=== PATIENT | male | born 1985 | race Caucasian/White ===

== ENCOUNTER 2017-02-26 12:58 | Emergency (ER) | payer OTHER ==
[2017-02-26 13:18] VITALS: BP 115/72; PULSE 100; RESP 18
--- NOTE | 2017-02-26 13:35 | ED ---
Wound/Laceration HPI - General Chief Complaint: Wound/Laceration Stated Complaint: abscess on foot Time Seen by Provider: 02/26/17 13:19 Source: patient, RN notes reviewed, old records reviewed Mode of arrival: ambulatory Limitations: no limitations - History of Present Illness Initial Comments: Patient is a 31-year-old male with chief complaint of abscess of her foot. Patient reports he was wearing boots and they A Few Days Ago. Patient Reports He Is Wearing His Boots without Socks. He States That over the past Few Days Has Noticed a Blister Develop and Now He Thinks Is an Abscess underneath. He Denies Any Fever or Chills. Denies Any Swelling or Pain in the Toes. He Reports That the Area of Redness and Swelling over the Medial Aspect of His Foot. He Is Able to Bear Weight. Patient States That He's Had Previous Skin Infections which have been managed by Cipro. Patient denies any recent fever, chills, shortness of breath, chest pain, back pain, abdominal pain, nausea vomiting, numbness or tingling, dysuria or hematuria, constipation or diarrhea, headaches or visual changes, or any other current symptoms - Related Data Home Medications Medication Instructions Recorded Confirmed Venlafaxine HCl [Effexor] 75 mg PO BID 02/26/17 02/26/17 Previous Rx's Medication Instructions Recorded Ciprofloxacin HCl [Cipro] 500 mg PO Q12HR #20 tablet 02/26/17 Ibuprofen [Motrin] 600 mg PO Q6HR PRN #20 tab 02/26/17 Allergies Allergy/AdvReac Type Severity Reaction Status Date / Time amoxicillin trihydrate Allergy Unknown Verified 02/26/17 13:18 [From Augmentin] potassium clavulanate Allergy Unknown Verified 02/26/17 13:18 [From Augmentin] Review of Systems ROS Statement: Those systems with pertinent positive or pertinent negative responses have been documented in the HPI. ROS Other: All systems not noted in ROS Statement are negative. Past Medical History Additional Past Medical History / Comment(s): drug abuse, coma History of Any Multi-Drug Resistant Organisms: None Reported Past Surgical History: Orthopedic Surgery Additional Past Surgical History / Comment(s): Arthroscopy left shoulder Past Psychological History: Anxiety, Depression Smoking Status: Current every day smoker Past Alcohol Use History: None Reported Past Drug Use History: None Reported General Exam - General Exam Comments Initial Comments: Pleasant a 31-year-old male. No distress. Limitations: no limitations General appearance: alert, in no apparent distress Head exam: Present: atraumatic, normocephalic, normal inspection Eye exam: Present: normal appearance, PERRL, EOMI. Absent: scleral icterus, conjunctival injection, periorbital swelling ENT exam: Present: normal exam, mucous membranes moist Neck exam: Present: normal inspection. Absent: tenderness, meningismus, lymphadenopathy Respiratory exam: Present: normal lung sounds bilaterally. Absent: respiratory distress, wheezes, rales, rhonchi, stridor Cardiovascular Exam: Present: regular rate, normal rhythm, normal heart sounds. Absent: systolic murmur, diastolic murmur, rubs, gallop, clicks GI/Abdominal exam: Present: soft, normal bowel sounds. Absent: distended, tenderness, guarding, rebound, rigid Extremities exam: Present: normal inspection, full ROM, normal capillary refill. Absent: tenderness, pedal edema, joint swelling, calf tenderness Back exam: Present: normal inspection Neurological exam: Present: alert, oriented X3, CN II-XII intact Psychiatric exam: Present: normal affect, normal mood Skin exam: Present: warm, dry, intact, normal color, erythema (Patient is an area of erythema measuring 5 cm x 4 cm over the medial aspect of the right foot. The area does have a fluctuant spot consistent with an abscess.). Absent : rash Course Vital Signs 02/26/17 02/26/17 13:16 13:49 Pulse Rate 100 100 Respiratory 18 18 Rate Blood Pressure 115/72 115/72 O2 Sat by Pulse 96 96 Oximetry Procedures - Incision & Drainage Consent Obtained: verbal consent Time Out Performed?: Yes Site: foot (right medial foot. ) Size (cm): 1 Anesthetic Used: benzocaine 0.25% I&D Cleaning Method: Betadine Sterile Field Used?: Yes Scalpel Used: #11 I&D Drainage Obtained: Pus, Blood Culture Obtained?: Yes Patient Tolerated Procedure: well, no complications Medical Decision Making - Medical Decision Making Is 31-year-old male chief complaint of a right foot abscess. Patient had this for the past 2 days in regards with a blister over the past day it became increasingly red and inflamed does have a head on it. Patient's abscess was incised and drained. No packing inserted due to shallow wound. Patient did have a culture done. Patient was started on Cipro and given a prescription for Motrin. Patient agrees to return for any worsening signs or symptoms. Patient understands treatment plan will comply. Return parameters were discussed. Disposition Clinical Impression: Foot abscess, right Disposition: HOME SELF-CARE Condition: Good Instructions: Abscess (ED) Additional Instructions: Advised to completely entire antibiotic prescription. Follow-up with primary care provider to have a recheck. Return to emergency Department if the area of redness increases, you have fever or chills, or severe swelling. Don't miss a dose of antibiotic. Complete warm soaks. Prescriptions: Ciprofloxacin HCl [Cipro] 500 mg PO Q12HR #20 tablet Ibuprofen [Motrin] 600 mg PO Q6HR PRN #20 tab PRN Reason: Pain Referrals: Taz Smyth MD [Primary Care Provider] - 1-2 days Time of Disposition: 13:31
== END 2017-02-26 13:52 | disposition home or self-care (01) ==
LOC: EC 12:58
DX: L02.611 Cutaneous abscess of right foot (principal); F41.9 Anxiety disorder, unspecified; F32.9 Major depressive disorder, single episode, unspecified; F17.200 Nicotine dependence, unspecified, uncomplicated; Z79.899 Other long term (current) drug therapy; Z88.0 Allergy status to penicillin
CPT/HCPCS: 10060; 87070; 87077; 87186; 87205; 99283

== ENCOUNTER 2017-03-10 10:56 | Emergency (ER) | payer OTHER ==
[2017-03-10 11:09] VITALS: BP 116/70; PULSE 78; RESP 20; TEMP 98.6
--- NOTE | 2017-03-10 11:19 | ED ---
ENT HPI - General Chief complaint: Dental/Oral Stated complaint: Oral Pain Time Seen by Provider: 03/10/17 11:10 Source: patient Mode of arrival: ambulatory Limitations: no limitations - History of Present Illness Initial comments: This is a 31-year-old male who presents emergency department for right lower molar pain. He states he was grinding his teeth last night and felt like either impacted molar or fractured it. He states he did not have pain yesterday. Denies any fevers or chills. He states it hurts with any eating or chewing. He denies any other complaints. Try call multiple dental resources and was unable to convince her to the emergency department. - Related Data Home Medications Medication Instructions Recorded Confirmed Venlafaxine HCl [Effexor] 75 mg PO BID 02/26/17 02/26/17 Buprenorphine HCl [Subutex] 2 mg SUBLINGUAL DAILY 03/10/17 03/10/17 Previous Rx's Medication Instructions Recorded HYDROcodone/APAP 5-325MG [[place] 1 tab PO Q6HR PRN #10 tab 03/10/17 5-325] Allergies Allergy/AdvReac Type Severity Reaction Status Date / Time amoxicillin trihydrate Allergy Unknown Verified 03/10/17 11:22 [From Augmentin] potassium clavulanate Allergy Unknown Verified 03/10/17 11:22 [From Augmentin] Review of Systems ROS Statement: Those systems with pertinent positive or pertinent negative responses have been documented in the HPI. ROS Other: All systems not noted in ROS Statement are negative. Past Medical History Additional Past Medical History / Comment(s): drug abuse, coma History of Any Multi-Drug Resistant Organisms: MRSA Date of last positivie culture/infection: 02/26/17 MDRO Source:: foot Past Surgical History: Orthopedic Surgery Additional Past Surgical History / Comment(s): Arthroscopy left shoulder Past Psychological History: Anxiety, Depression Smoking Status: Current every day smoker Past Alcohol Use History: None Reported Past Drug Use History: None Reported General Exam - General Exam Comments Initial Comments: Constitutional: Awake alert Appears comfortable Head: Normocephalic atraumatic Eyes: no conjunctival injection No scleral icterus EOMI ENT: Oropharynx is normal, there is no gingivitis or gingival hyperplasia, there is a dental carry to the right lower second premolar. No surrounding erythema or inflammation. Neck: No JVD Supple Heart: Regular rate rhythm normal S1-S2 no murmurs Lungs: Clear to auscultation bilaterally No wheezing No rales Abdomen: Soft nondistended nontender Extremities: Non edematous DP pulses intact Radial pulses intact Neuro: A&Ox3 No focal neurologic deficits Psych: Appropriate mood and affect Limitations: no limitations Course Vital Signs 03/10/17 11:07 Temperature 98.6 F Pulse Rate 78 Respiratory 20 Rate Blood Pressure 116/70 O2 Sat by Pulse 100 Oximetry Medical Decision Making - Medical Decision Making This is a 31-year-old came in for tooth pain. He appears to have his dental [place]. Per provided with 10 [place] until he can get in to see a dentist. Given dental resources as well. Disposition Clinical Impression: Dental caries Disposition: HOME SELF-CARE Condition: Stable Instructions: Toothache (ED), Dental Caries (ED) Prescriptions: HYDROcodone/APAP 5-325MG [[place] 5-325] 1 tab PO Q6HR PRN #10 tab PRN Reason: Pain Referrals: Taz Smyth MD [Primary Care Provider] - 1-2 days
== END 2017-03-10 11:28 | disposition home or self-care (01) ==
LOC: EC 10:56
DX: K02.9 Dental caries, unspecified (principal); F41.9 Anxiety disorder, unspecified; F32.9 Major depressive disorder, single episode, unspecified; F17.200 Nicotine dependence, unspecified, uncomplicated; Z86.14 Personal history of Methicillin resistant Staphylococcus aureus infection; Z79.899 Other long term (current) drug therapy; Z88.0 Allergy status to penicillin
CPT/HCPCS: 99282

== ENCOUNTER 2017-03-28 12:26 | Emergency (ER) | payer OTHER ==
[2017-03-28 12:44] VITALS: BP 104/58; PULSE 65; RESP 15; TEMP 97.8
--- NOTE | 2017-03-28 12:58 | ED ---
Skin/Abscess/FB HPI - General Chief complaint: Skin/Abscess/Foreign Body Stated complaint: Rash Time Seen by Provider: 03/28/17 12:47 Source: patient Mode of arrival: ambulatory Limitations: no limitations - History of Present Illness Initial comments: Patient is a 31-year-old male with medical history significant for MRSA and previous cellulitis from bee stings presenting to the emergency department with complaints of bee stings to his right forearm, right elbow, right hand, and right foot. Patient states that approximately 1 week ago he was helping a friend kill some bees in a basement when he was attacked. Patient mostly complains of pain and redness to his right midfoot where he was stung. Patient denies chills, fevers, nausea, vomiting, shortness of breath, difficulty breathing, abdominal pain, chest pain, numbness or tingling. Patient currently rates pain 3 out of 10 described as aching. MD complaint: insect bite/sting Onset/Timin -: week(s) Tetanus Up to Date: yes Quality: aching Consistency: intermittent Improves with: cold therapy, topical medication, medication Worsens with: movement Context: witnessed insect bite Associated symptoms: denies other symptoms Treatments Prior to Arrival: corticosteroid (1% hydrocortisone [id number]. ), NSAID - Related Data Home Medications Medication Instructions Recorded Confirmed Venlafaxine HCl [Effexor] 150 mg PO QAM 02/26/17 03/28/17 Buprenorphine HCl [Subutex] 2 mg SUBLINGUAL DAILY 03/10/17 03/28/17 Previous Rx's Medication Instructions Recorded Sulfamethox-Tmp 800-160Mg [Bactrim 1 tab PO Q12HR #20 tab 03/28/17 DS 800-160 mg] Allergies Allergy/AdvReac Type Severity Reaction Status Date / Time amoxicillin trihydrate Allergy Unknown Verified 03/28/17 12:44 [From Augmentin] potassium clavulanate Allergy Unknown Verified 03/28/17 12:44 [From Augmentin] Review of Systems ROS Statement: Those systems with pertinent positive or pertinent negative responses have been documented in the HPI. ROS Other: All systems not noted in ROS Statement are negative. Past Medical History Additional Past Medical History / Comment(s): drug abuse, coma, Hepatitis C History of Any Multi-Drug Resistant Organisms: MRSA Date of last positivie culture/infection: 04/27/17 MDRO Source:: foot Past Surgical History: Orthopedic Surgery Additional Past Surgical History / Comment(s): Arthroscopy left shoulder Past Psychological History: Anxiety, Depression Smoking Status: Current every day smoker Past Alcohol Use History: None Reported Past Drug Use History: None Reported General Exam - General Exam Comments Initial Comments: GENERAL: Pt awake and alert, well-appearing, and in no acute distress. HEAD: Atraumatic, normocephalic. EYES: Pupils equal, round, and reactive to light, sclera anicteric, conjunctiva are normal. ENT: Moist mucous membranes. NECK: Supple without lymphadenopathy or JVD. LUNGS: Breath sounds clear to auscultation bilaterally. No wheezes, rales, or rhonchi. HEART: Heart S1, S2, no S3 or S4. Regular rate and rhythm. No murmurs, rubs or gallops. ABDOMEN: Soft, nontender, nondistended, normoactive bowel sounds. No peritoneal signs. EXTREMITIES: 2+ peripheral pulses. No edema. NEUROLOGICAL: Pt oriented x 3. No focal deficits noted. Strength and sensation grossly intact. PSYCH: Normal mood, normal affect. SKIN: Warm, dry. Patient has what appears to be bee sting to his right hand, right forearm, and right elbow with minimal erythema, no drainage or abscess noted. Bee sting to right dorsal midfoot with surrounding erythema, no drainage or abscess noted. Limitations: no limitations Course Vital Signs 03/28/17 12:39 Temperature 97.8 F Pulse Rate 65 Respiratory 15 Rate Blood Pressure 104/58 O2 Sat by Pulse 100 Oximetry Medical Decision Making - Medical Decision Making Right foot cellulitis suspect secondary to bee sting. Patient will be placed on Bactrim. Patient started to return with any new or worsening symptoms. Patient agrees with treatment plan. Disposition Clinical Impression: Bee sting, Cellulitis of right foot Disposition: HOME SELF-CARE Condition: Good Instructions: Cellulitis (ED), Insect Bite or Sting (ED) Additional Instructions: Finish antibiotics as prescribed. May continue Motrin or Tylenol for pain. May apply warm compresses for comfort. Please return to the emergency department if symptoms do not improve or get worse. Prescriptions: Sulfamethox-Tmp 800-160Mg [Bactrim DS 800-160 mg] 1 tab PO Q12HR #20 tab Referrals: None,Stated [Primary Care Provider] - 1-2 days Time of Disposition: 13:01
== END 2017-03-28 13:12 | disposition home or self-care (01) ==
LOC: EC 12:26
DX: T63.441A Toxic effect of venom of bees, accidental (unintentional), initial encounter (principal); F32.9 Major depressive disorder, single episode, unspecified; F41.9 Anxiety disorder, unspecified; F17.200 Nicotine dependence, unspecified, uncomplicated; Z79.891 Long term (current) use of opiate analgesic; Z79.899 Other long term (current) drug therapy; Z88.0 Allergy status to penicillin; Y92.89 Other specified places as the place of occurrence of the external cause; Y93.89 Activity, other specified
CPT/HCPCS: 99282

== ENCOUNTER 2017-04-04 19:55 | Emergency (ER) | payer OTHER ==
[2017-04-04 20:39] VITALS: BP 121/66; PULSE 70; RESP 18; TEMP 98.5
--- NOTE | 2017-04-04 20:42 | ED ---
Skin/Abscess/FB HPI - General Chief complaint: Skin/Abscess/Foreign Body Stated complaint: blisters on foot Time Seen by Provider: 04/04/17 20:19 Source: patient, RN notes reviewed Mode of arrival: ambulatory Limitations: no limitations - History of Present Illness Initial comments: 31-year-old male presents emergency Department chief complaint of abscess to the left foot. Patient states he's had this past few days he is on clindamycin and now it has drained. Patient states is tender and swollen. Patient does admit to history of MRSA. Patient denies any fever or chills. Patient denies any cough cold runny nose. Patient states she was concerned due to his continued symptoms he thought that he should be evaluated. Patient denies any recent fever, chills, shortness of breath, chest pain, back pain, abdominal pain , nausea vomiting, numbness or tingling, dysuria or hematuria, constipation or diarrhea, headaches or visual changes, or any other current symptoms. - Related Data Home Medications Medication Instructions Recorded Confirmed Venlafaxine HCl [Effexor] 150 mg PO QAM 02/26/17 03/28/17 Buprenorphine HCl [Subutex] 2 mg SUBLINGUAL DAILY 03/10/17 03/28/17 Previous Rx's Medication Instructions Recorded Sulfamethox-Tmp 800-160Mg [Bactrim 1 tab PO Q12HR #20 tab 03/28/17 DS 800-160 mg] Ibuprofen [Motrin] 600 mg PO Q6HR PRN #20 tab 04/04/17 Allergies Allergy/AdvReac Type Severity Reaction Status Date / Time amoxicillin trihydrate Allergy Unknown Verified 04/04/17 20:00 [From Augmentin] potassium clavulanate Allergy Unknown Verified 04/04/17 20:00 [From Augmentin] sulfamethoxazole Allergy Rash/Hives Verified 04/04/17 20:00 [From Bactrim] trimethoprim [From Bactrim] Allergy Rash/Hives Verified 04/04/17 20:00 Review of Systems ROS Statement: Those systems with pertinent positive or pertinent negative responses have been documented in the HPI. ROS Other: All systems not noted in ROS Statement are negative. Past Medical History Additional Past Medical History / Comment(s): drug abuse, coma, Hepatitis C History of Any Multi-Drug Resistant Organisms: MRSA Date of last positivie culture/infection: 02/26/17 MDRO Source:: foot Past Surgical History: Orthopedic Surgery Additional Past Surgical History / Comment(s): Arthroscopy left shoulder Past Psychological History: Anxiety, Depression Smoking Status: Current every day smoker Past Alcohol Use History: None Reported Past Drug Use History: None Reported General Exam - General Exam Comments Initial Comments: General: The patient is awake and alert, in no distress, and does not appear acutely ill. Neck: The neck is supple, there is no tenderness. Cardiovascular: There is a regular rate and rhythm. No murmur, rub or gallop is appreciated. Respiratory: Lungs are clear to auscultation, respirations are non-labored, breath sounds are equal. No wheezes, stridor, rales, or rhonchi. Musculoskeletal: Sensation intact with 2+ pulses of the left +. Range of motion of left ankle and left foot. Patient does appear to abscess to the medial aspect of the foot that is fluctuant to touch. No associated induration. 5 out of 5 muscle strength testing throughout. Neurological: CN II-XII intact, There are no obvious motor or sensory deficits. Coordination appears grossly intact. Speech is normal. Skin: Skin is warm and dry and no rashes or lesions are noted. Psychiatric: Normal mood and affect. Limitations: no limitations Course Vital Signs 04/04/17 20:00 Temperature 98.5 F Pulse Rate 70 Respiratory 18 Rate Blood Pressure 121/66 O2 Sat by Pulse 100 Oximetry Procedures - Procedures Initial comment: Procedure: Incision and drainage The skin overlying the abscess was prepped with Betadine, and anesthetized with 1% lidocaine without epinephrine. A #11 scalpel was then used to incise the abscess. Some purulent material was then extracted from the lesion. Wound culture obtained. Gauze dressing placed on top, The patient tolerated the procedure well. Medical Decision Making - Medical Decision Making 31-year-old male presents emergency Department chief complaint of left foot abscess. At this time patient underwent I&D. We discussed her follow-up and return parameters. We discussed all patient's questions. He stated he understood the plan. He will be discharged. Disposition Clinical Impression: Foot abscess, left Disposition: HOME SELF-CARE Condition: Stable Instructions: Abscess (ED), Abscess Incision and Drainage (ED) Additional Instructions: Please use medication as discussed. Please follow up with family doctor if symptoms have not improved over the next two days. Please return to the emergency room if your symptoms increase or worsen or for any other concerns. Prescriptions: Ibuprofen [Motrin] 600 mg PO Q6HR PRN #20 tab PRN Reason: Pain Referrals: Sidra Diaz MD [STAFF PHYSICIAN] - 1-2 days Time of Disposition: 20:41
== END 2017-04-04 21:10 | disposition home or self-care (01) ==
LOC: EC 19:55
DX: L02.612 Cutaneous abscess of left foot (principal); F32.9 Major depressive disorder, single episode, unspecified; F17.200 Nicotine dependence, unspecified, uncomplicated; Z88.0 Allergy status to penicillin; Z88.2 Allergy status to sulfonamides; Z86.14 Personal history of Methicillin resistant Staphylococcus aureus infection; Z79.899 Other long term (current) drug therapy
CPT/HCPCS: 10060; 99282

== ENCOUNTER 2017-05-01 20:30 | Emergency (ER) | payer OTHER ==
[2017-05-01 20:39] VITALS: RESP 20; TEMP 100.2
--- NOTE | 2017-05-01 21:10 | ED ---
General Adult HPI - General Chief complaint: Psychiatric Symptoms Stated complaint: MENTAL HEALTH Time Seen by Provider: 05/01/17 20:42 Source: patient, RN notes reviewed, old records reviewed Mode of arrival: ambulatory Limitations: no limitations - History of Present Illness Initial comments: This is a 31-year-old male here for evaluation. The patient said presents for evaluation regarding stress, increased life stressors, thoughts of harming himself or others. Patient denies drugs or alcohol. - Related Data Home Medications Medication Instructions Recorded Confirmed Venlafaxine HCl [Effexor] 150 mg PO QAM 02/26/17 05/01/17 Buprenorphine HCl [Subutex] 2 mg SUBLINGUAL DAILY 03/10/17 05/01/17 Ibuprofen [Motrin] 800 mg PO Q8H PRN 05/01/17 05/01/17 Allergies Allergy/AdvReac Type Severity Reaction Status Date / Time amoxicillin trihydrate Allergy Unknown Verified 05/01/17 21:25 [From Augmentin] potassium clavulanate Allergy Unknown Verified 05/01/17 21:25 [From Augmentin] sulfamethoxazole Allergy Rash/Hives Verified 05/01/17 21:25 [From Bactrim] trimethoprim [From Bactrim] Allergy Rash/Hives Verified 05/01/17 21:25 Review of Systems ROS Statement: Those systems with pertinent positive or pertinent negative responses have been documented in the HPI. ROS Other: All systems not noted in ROS Statement are negative. Past Medical History Additional Past Medical History / Comment(s): Hepatitis C, opiate dependance History of Any Multi-Drug Resistant Organisms: MRSA Date of last positivie culture/infection: 02/26/17 MDRO Source:: foot Past Surgical History: Orthopedic Surgery Additional Past Surgical History / Comment(s): Arthroscopy left shoulder Past Psychological History: Anxiety, Depression Smoking Status: Current every day smoker Past Alcohol Use History: None Reported Past Drug Use History: None Reported General Exam Limitations: no limitations General appearance: alert, in no apparent distress, anxious Head exam: Present: atraumatic, normocephalic, normal inspection Eye exam: Present: normal appearance, PERRL, EOMI. Absent: scleral icterus, conjunctival injection, periorbital swelling ENT exam: Present: normal exam, mucous membranes moist Neck exam: Present: normal inspection. Absent: tenderness, meningismus, lymphadenopathy Respiratory exam: Present: normal lung sounds bilaterally. Absent: respiratory distress, wheezes, rales, rhonchi, stridor Cardiovascular Exam: Present: regular rate, normal rhythm, normal heart sounds. Absent: systolic murmur, diastolic murmur, rubs, gallop, clicks GI/Abdominal exam: Present: soft, normal bowel sounds. Absent: distended, tenderness, guarding, rebound, rigid Extremities exam: Present: normal inspection, full ROM, normal capillary refill. Absent: tenderness, pedal edema, joint swelling, calf tenderness Back exam: Present: normal inspection Neurological exam: Present: alert, oriented X3, CN II-XII intact Psychiatric exam: Present: normal affect, normal mood Skin exam: Present: warm, dry, intact, normal color. Absent: rash Course Vital Signs 05/01/17 20:34 Temperature 100.2 F H Pulse Rate 111 H Respiratory 20 Rate Blood Pressure 104/52 O2 Sat by Pulse 98 Oximetry - Reevaluation(s) Reevaluation #1: 05/02/17 02:26 Medical clear for psychiatric evaluation Medical Decision Making - Medical Decision Making 31 male who is seen intervertebral psychiatry, patient is deemed not need psychiatric. Patient's psychiatric treatment at this time, patient will be discharged home Disposition Clinical Impression: Depression Disposition: HOME SELF-CARE Condition: Good Instructions: Depression (ED) Referrals: Taz Smyth MD [Primary Care Provider] - 1-2 days
[2017-05-02 02:38] VITALS: BP 102/56; PULSE 84
== END 2017-05-02 02:38 | disposition home or self-care (01) ==
LOC: EC 20:30
DX: F32.9 Major depressive disorder, single episode, unspecified (principal); F41.9 Anxiety disorder, unspecified; F17.200 Nicotine dependence, unspecified, uncomplicated; Z79.899 Other long term (current) drug therapy; Z88.0 Allergy status to penicillin; Z88.2 Allergy status to sulfonamides
CPT/HCPCS: 82075; 99284

== ENCOUNTER 2017-05-14 22:24 | Emergency (ER) | payer OTHER ==
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
[2017-05-14 23:55] VITALS: RESP 16
[2017-05-15] MEDS ORDERED: METHADONE 10 MG TAB PO STA (00:22)
[2017-05-15 00:53] VITALS: BP 127/79; PULSE 86; TEMP 97.1
== END 2017-05-15 01:10 | disposition home or self-care (01) ==
LOC: EC 22:24
DX: F43.22 Adjustment disorder with anxiety (principal); F11.23 Opioid dependence with withdrawal; F32.9 Major depressive disorder, single episode, unspecified; F17.200 Nicotine dependence, unspecified, uncomplicated; Z88.2 Allergy status to sulfonamides; Z88.0 Allergy status to penicillin; Z79.899 Other long term (current) drug therapy
CPT/HCPCS: 99285; 82075; 80306; S0109

== ENCOUNTER 2017-05-17 12:21 | Emergency (ER) | payer OTHER ==
[2017-05-17 12:29] VITALS: BP 137/64; PULSE 99; RESP 14; TEMP 100.9
[2017-05-17] MEDS ORDERED: diphenhydrAMINE 50 MG CAP PO STA (12:37)
[2017-05-17] MEDS ORDERED: predniSONE 50 MG TAB PO STA (12:37)
[2017-05-17] MEDS ORDERED: FAMOTIDINE 20 MG TAB PO STA (12:38)
--- NOTE | 2017-05-17 12:43 | ED ---
General Adult HPI - General Chief complaint: Skin/Abscess/Foreign Body Stated complaint: insect bite bottom lt foot Time Seen by Provider: 05/17/17 12:32 Source: patient, RN notes reviewed Mode of arrival: ambulatory Limitations: no limitations - History of Present Illness Initial comments: 21-year-old male who presents emergency room today with a chief complaint of increased redness swelling locally to the left foot. He does admit that he slept in a shed last night. He states he woke up this morning noticed some irritation to the left foot. He states he noticed that there was an earring week second issue is well. Since sure if this is what caused this. He is unsure if there is a bite. He states feels better when he rubs it. He does admit to a history of MRSA. He denies any other complaints or associated symptoms. States he had no symptoms yesterday. Patient denies any recent fever , chills, shortness of breath, chest pain, back pain, abdominal pain, nausea or vomiting, numbness or tingling, dysuria or hematuria, constipation or diarrhea, headaches or visual changes, or any other complaints. - Related Data Home Medications Medication Instructions Recorded Confirmed Buprenorphine HCl [Subutex] 2 mg SL 05/17/17 Previous Rx's Medication Instructions Recorded Clindamycin HCl [Cleocin] 300 mg PO Q6HR 10 Days 05/17/17 Famotidine [Pepcid] 20 mg PO BID #20 tablet 05/17/17 diphenhydrAMINE [Benadryl] 1 - 2 tab PO Q6HR PRN #30 capsule 05/17/17 predniSONE 50 mg PO DAILY #5 tab 05/17/17 Allergies Allergy/AdvReac Type Severity Reaction Status Date / Time amoxicillin trihydrate Allergy Unknown Verified 05/17/17 12:29 [From Augmentin] potassium clavulanate Allergy Unknown Verified 05/17/17 12:29 [From Augmentin] sulfamethoxazole Allergy Rash/Hives Verified 05/17/17 12:29 [From Bactrim] trimethoprim [From Bactrim] Allergy Rash/Hives Verified 05/17/17 12:29 Review of Systems ROS Statement: Those systems with pertinent positive or pertinent negative responses have been documented in the HPI. ROS Other: All systems not noted in ROS Statement are negative. Past Medical History Additional Past Medical History / Comment(s): Hepatitis C, opiate dependance History of Any Multi-Drug Resistant Organisms: MRSA Date of last positivie culture/infection: 02/26/17 MDRO Source:: foot Past Surgical History: Orthopedic Surgery Additional Past Surgical History / Comment(s): Arthroscopy left shoulder Past Psychological History: Anxiety, Depression Smoking Status: Current every day smoker Past Alcohol Use History: None Reported Past Drug Use History: Marijuana General Exam - General Exam Comments Initial Comments: General: The patient is awake and alert, in no distress, and does not appear acutely ill. Eye: Pupils are equal, round and reactive to light, extra-ocular movements are intact. No nystagmus. There is normal conjunctiva bilaterally. No signs of icterus. Ears, nose, mouth and throat: There are moist mucous membranes and no oral lesions. Neck: The neck is supple, there is no tenderness or JVD. Cardiovascular: There is a regular rate and rhythm. No murmur, rub or gallop is appreciated. Respiratory: Lungs are clear to auscultation, respirations are non-labored, breath sounds are equal. No wheezes, stridor, rales, or rhonchi. Musculoskeletal: Normal ROM, no tenderness. Strength 5/5. Sensation intact. Pulses equal bilaterally 2+. Neurological: A&O x 3. CN II-XII intact, There are no obvious motor or sensory deficits. Coordination appears grossly intact. Speech is normal. Skin: 7 mild redness erythema to the arch of the left foot. There is ALLERGIC streaking. Psychiatric: Cooperative, appropriate mood & affect, normal judgment. Limitations: no limitations Course Vital Signs 05/17/17 12:26 Temperature 100.9 F H Pulse Rate 99 Respiratory 14 Rate Blood Pressure 137/64 O2 Sat by Pulse 97 Oximetry Medical Decision Making - Medical Decision Making Patient states no symptoms yesterday noticed that this morning when he woke up. Does admit that there is no earache in his shoe. Did discuss with the patient most likely an ALLERGIC type reaction as it's been less than 24 hours with this redness. No lethargic streaking. There is no fluctuance or sign of abscess at this time. He does have a history of MRSA. Patient does have multiple other abrasions and scabs to the lower legs. Sign of infection to these areas. Patient does have low-grade temperature here 100.9F. Patient will be given a antibiotic to go home with. He will be given doses of steroids , Benadryl, Pepcid here in emergency room. He is advised that there is improvement with this that he does not need to take the antibiotic if there is no improvement or if symptoms begin to increase that he should begin antibiotics. He is advised to return here to emergency room if symptoms increase or worsen. He states understanding and is in agreement. Disposition Clinical Impression: Insect bite Disposition: HOME SELF-CARE Condition: Good Instructions: Insect Bite or Sting (ED) Additional Instructions: Please use medication as discussed. Please follow-up with family doctor in the next 2 days of symptoms have not improved. Please return to emergency room if the symptoms increase or worsen or for any other concerns. Prescriptions: Clindamycin HCl [Cleocin] 300 mg PO Q6HR 10 Days diphenhydrAMINE [Benadryl] 1 - 2 tab PO Q6HR PRN #30 capsule PRN Reason: Allergic Reaction Famotidine [Pepcid] 20 mg PO BID #20 tablet predniSONE 50 mg PO DAILY #5 tab Referrals: Taz Smyth MD [Primary Care Provider] - 1-2 days Time of Disposition: 12:41
== END 2017-05-17 12:50 | disposition home or self-care (01) ==
LOC: EC 12:21
DX: S90.862A Insect bite (nonvenomous), left foot, initial encounter (principal); M79.89 Other specified soft tissue disorders; F17.200 Nicotine dependence, unspecified, uncomplicated; Z86.14 Personal history of Methicillin resistant Staphylococcus aureus infection; Z79.899 Other long term (current) drug therapy; Z88.0 Allergy status to penicillin; Z88.1 Allergy status to other antibiotic agents; Z88.2 Allergy status to sulfonamides; W57.XXXA Bitten or stung by nonvenomous insect and other nonvenomous arthropods, initial encounter
CPT/HCPCS: 99282; J7512

== ENCOUNTER 2017-07-29 14:40 | Emergency (ER) | payer OTHER ==
[2017-07-29 15:00] VITALS: TEMP 100
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
[2017-07-29 16:25] VITALS: BP 105/60; PULSE 110; RESP 16
== END 2017-07-29 16:15 | disposition home or self-care (01) ==
LOC: EC 14:40
DX: S72.112A Displaced fracture of greater trochanter of left femur, initial encounter for closed fracture (principal); F41.9 Anxiety disorder, unspecified; F32.9 Major depressive disorder, single episode, unspecified; F17.200 Nicotine dependence, unspecified, uncomplicated; Z86.14 Personal history of Methicillin resistant Staphylococcus aureus infection; Z79.899 Other long term (current) drug therapy; Z88.0 Allergy status to penicillin; Z88.1 Allergy status to other antibiotic agents; Z88.2 Allergy status to sulfonamides; Z88.8 Allergy status to other drugs, medicaments and biological substances; V03.90XA Pedestrian on foot injured in collision with car, pick-up truck or van, unspecified whether traffic or nontraffic accident, initial encounter
CPT/HCPCS: 73502; 99283

== ENCOUNTER 2017-08-15 21:32 | Emergency (ER) | payer OTHER ==
--- NOTE | 2017-08-15 22:23 | ED ---
General Adult HPI - General Chief complaint: Psychiatric Symptoms Stated complaint: Anxiety Time Seen by Provider: 08/15/17 21:45 Source: patient, RN notes reviewed Mode of arrival: ambulatory Limitations: no limitations - History of Present Illness Initial comments: This is a 32-year-old male with past medical history significant for severe depression. Patient states she's already on Effexor. Patient states today he got the news that his grandfather home he was extremely close with. Patient states ever since then he started crying and been very depressed. Patient states he is not currently suicidal but earlier he's not sure if he would've considered it. Patient denies any homicidal ideations. Patient denies any drug use or alcohol today. Patient states he just was looking for somebody talk to today and is not sure even wants to be admitted at this time. Patient states the depression seems to come in waves every since he found out his grandfather . Patient denies any physical complaints today. Patient denies any fever chills or cough patient denies abdominal pain patient denies nausea vomiting diarrhea. Patient denies any chest pain shortness of breath or difficulty breathing. - Related Data Home Medications Medication Instructions Recorded Confirmed Ibuprofen [Motrin] 800 mg PO Q8H PRN 07/29/17 07/29/17 Venlafaxine HCl [Effexor XR] 225 mg PO DAILY 07/29/17 07/29/17 busPIRone HCL 15 mg PO TID 07/29/17 07/29/17 Previous Rx's Medication Instructions Recorded Hydrocodone/Acetaminophen [[place] 1 tab PO Q6HR PRN #15 tab 07/29/17 5-325] Ibuprofen [Motrin] 600 mg PO Q6HR PRN #20 tab 07/29/17 Allergies Allergy/AdvReac Type Severity Reaction Status Date / Time amoxicillin trihydrate Allergy Unknown Verified 08/15/17 21:43 [From Augmentin] potassium clavulanate Allergy Unknown Verified 08/15/17 21:43 [From Augmentin] sulfamethoxazole Allergy Rash/Hives Verified 08/15/17 21:43 [From Bactrim] trimethoprim [From Bactrim] Allergy Rash/Hives Verified 08/15/17 21:43 Review of Systems ROS Statement: Those systems with pertinent positive or pertinent negative responses have been documented in the HPI. ROS Other: All systems not noted in ROS Statement are negative. Past Medical History Additional Past Medical History / Comment(s): Hepatitis C, opiate dependance History of Any Multi-Drug Resistant Organisms: MRSA Date of last positivie culture/infection: 02/26/17 MDRO Source:: foot Past Surgical History: Orthopedic Surgery Additional Past Surgical History / Comment(s): Arthroscopy left shoulder Past Psychological History: Anxiety, Depression Smoking Status: Current every day smoker Past Alcohol Use History: Occasional Past Drug Use History: Marijuana General Exam - General Exam Comments Initial Comments: GENERAL: Patient is well-developed and well-nourished. Patient is nontoxic and well- hydrated and is in no acute distress. ENT: Neck is soft and supple. No significant lymphadenopathy is noted. Oropharynx is clear. Moist mucous membranes. Neck has full range of motion without eliciting any pain. EYES: The sclera were anicteric and conjunctiva were pink and moist. Extraocular movements were intact and pupils were equal round and reactive to light. Eyelids were unremarkable. PULMONARY: Unlabored respirations. Good breath sounds bilaterally. No audible rales rhonchi or wheezing was noted. CARDIOVASCULAR: There is a regular rate and rhythm without any murmurs gallops or rubs. SKIN: Skin is clear with no lesions or rashes and otherwise unremarkable. NEUROLOGIC: Patient is alert and oriented x3. Cranial nerves II through XII are grossly intact. Motor and sensory are also intact. Normal speech, volume and content. Symmetrical smile. MUSCULOSKELETAL: Normal extremities with adequate strength and full range of motion. LYMPHATICS: No significant lymphadenopathy is noted PSYCHIATRIC: Patient is very depressed his grandfather today he currently states he is not suicidal Limitations: no limitations Course Vital Signs 08/15/17 08/16/17 21:41 00:56 Temperature 98.2 F 98.5 F Pulse Rate 81 71 Respiratory 20 18 Rate Blood Pressure 128/66 140/80 O2 Sat by Pulse 100 98 Oximetry Medical Decision Making - Medical Decision Making EPS evaluated the patient spoke with the psychiatrist and determined that the patient was safe to go home - Lab Data Lab Results 08/15/17 Range/Units 22:36 Urine Opiates Screen Detected H (NotDetected) Ur Oxycodone Screen Not Detected (NotDetected) Urine Methadone Screen Not Detected (NotDetected) Ur Propoxyphene Screen Not Detected (NotDetected) Ur Barbiturates Screen Not Detected (NotDetected) U Tricyclic Antidepress Not Detected (NotDetected) Ur Phencyclidine Scrn Not Detected (NotDetected) Ur Amphetamines Screen Detected H (NotDetected) U Methamphetamines Scrn Detected H (NotDetected) U Benzodiazepines Scrn Detected H (NotDetected) Urine Cocaine Screen Not Detected (NotDetected) U Marijuana (THC) Screen Detected H (NotDetected) Disposition Clinical Impression: Polypharmacy, Methamphetamine abuse, Benzodiazepine abuse, Marijuana abuse, Narcotic abuse, Grieving Disposition: HOME SELF-CARE Instructions: Polysubstance Abuse (ED) Referrals: None,Stated [Primary Care Provider] - 1-2 days Time of Disposition: 00:42
[2017-08-16 01:02] VITALS: BP 140/80; PULSE 71; RESP 18; TEMP 98.5
== END 2017-08-16 00:56 | disposition home or self-care (01) ==
LOC: EC 21:32
DX: F12.10 Cannabis abuse, uncomplicated (principal); F11.10 Opioid abuse, uncomplicated; F15.10 Other stimulant abuse, uncomplicated; F13.10 Sedative, hypnotic or anxiolytic abuse, uncomplicated; F32.9 Major depressive disorder, single episode, unspecified; F41.9 Anxiety disorder, unspecified; F17.200 Nicotine dependence, unspecified, uncomplicated; Z86.14 Personal history of Methicillin resistant Staphylococcus aureus infection; Z63.4 Disappearance and death of family member; Z79.899 Other long term (current) drug therapy; Z88.2 Allergy status to sulfonamides; Z88.0 Allergy status to penicillin
CPT/HCPCS: 80306; 82075; 99284

== ENCOUNTER 2017-12-25 02:37 | Emergency (ER) | payer OTHER ==
[2017-12-25 02:44] VITALS: BP 134/88; PULSE 100; RESP 18; TEMP 97.6
[2017-12-25] MEDS ORDERED: ACETAMINOPHEN TAB 500 MG TAB PO STA (02:55)
[2017-12-25] MEDS ORDERED: BUPIVACAINE (PF) 0.5% 30 ML VIAL SQ STA (02:56)
[2017-12-25] MEDS ORDERED: IBUPROFEN 800 MG TAB PO STA (02:56)
--- NOTE | 2017-12-25 03:14 | ED ---
ENT HPI - General Chief complaint: Dental/Oral Stated complaint: dental pain Time Seen by Provider: 12/25/17 02:45 Source: patient Mode of arrival: ambulatory Limitations: no limitations - History of Present Illness Initial comments: 32-year-old male patient presented to the emergency department today for complaints of left upper dental pain. Patient states he has a broken tooth to the area that occasionally causes him problems. He states that the pain started earlier today. He states he has not had anything for pain. He denies any fevers or chills with this. Denies any nausea or vomiting. States that he just got his dental insurance reinstated he'll be calling the dentist tomorrow. Patient denies any recent rash, shortness breath, chest pain, abdominal pain, diarrhea, constipation, back pain, numbness, tingling, dizziness, weakness, hematuria, dysuria, urinary urgency, urinary frequency, headache, visual changes , or any other complaints. - Related Data Home Medications Medication Instructions Recorded Confirmed Ibuprofen [Motrin] 800 mg PO Q8H PRN 07/29/17 09/05/17 Venlafaxine HCl [Effexor XR] 225 mg PO DAILY 07/29/17 09/05/17 busPIRone HCL 15 mg PO TID 07/29/17 09/05/17 Previous Rx's Medication Instructions Recorded Acetaminophen-Codeine 300-30mg 1 tab PO Q6H PRN #15 tablet 09/05/17 [Tylenol #3] Ibuprofen [Motrin] 600 mg PO Q6HR PRN #20 tab 09/05/17 Clindamycin HCl 300 mg PO TID #30 cap 12/25/17 Ibuprofen 800 mg PO TID PRN #30 tablet 12/25/17 Allergies Allergy/AdvReac Type Severity Reaction Status Date / Time amoxicillin trihydrate Allergy Unknown Verified 12/25/17 02:44 [From Augmentin] potassium clavulanate Allergy Unknown Verified 12/25/17 02:44 [From Augmentin] sulfamethoxazole Allergy Rash/Hives Verified 12/25/17 02:44 [From Bactrim] trimethoprim [From Bactrim] Allergy Rash/Hives Verified 12/25/17 02:44 Review of Systems ROS Statement: Those systems with pertinent positive or pertinent negative responses have been documented in the HPI. ROS Other: All systems not noted in ROS Statement are negative. Past Medical History Additional Past Medical History / Comment(s): Hepatitis C, opiate dependance History of Any Multi-Drug Resistant Organisms: MRSA Date of last positivie culture/infection: 02/26/17 MDRO Source:: foot Past Surgical History: Orthopedic Surgery Additional Past Surgical History / Comment(s): Arthroscopy left shoulder Past Psychological History: Anxiety, Depression Smoking Status: Current every day smoker Past Alcohol Use History: Occasional Past Drug Use History: Marijuana General Exam Limitations: no limitations General appearance: alert, in no apparent distress, other Eye exam: Present: normal appearance, PERRL, EOMI. Absent: scleral icterus, conjunctival injection, periorbital swelling ENT exam: Present: normal exam, normal oropharynx, mucous membranes moist, TM's normal bilaterally, other (Multiple broken teeth and dental caries. Broken tooth #14. No gingival erythema or swelling. No evidence of abscess.) Respiratory exam: Present: normal lung sounds bilaterally. Absent: respiratory distress, wheezes, rales, rhonchi, stridor Cardiovascular Exam: Present: regular rate, normal rhythm, normal heart sounds. Absent: systolic murmur, diastolic murmur, rubs, gallop, clicks Neurological exam: Present: alert, oriented X3, CN II-XII intact Psychiatric exam: Present: normal affect, normal mood Skin exam: Present: warm, dry, intact, normal color. Absent: rash Course Vital Signs 12/25/17 02:39 Temperature 97.6 F Pulse Rate 100 Respiratory 18 Rate Blood Pressure 134/88 O2 Sat by Pulse 100 Oximetry Procedures - Nerve Block Consent Obtained: verbal consent Time Out Performed: Yes Local Anesthetic Used: Marcaine 0.5% Amount of anesthesia used: 3 Side: left Intraoral Nerve Block: superior alveolar (Posterior) Procedure Successful: Yes Complications: none Patient Tolerated Procedure: well Medical Decision Making - Medical Decision Making 32-year-old male patient percents to the emergency department today for evaluation of left upper dental pain. Physical examination did reveal broken tooth #14. Patient has multiple broken teeth and extensive dental decay. There is no surrounding erythema or evidence of abscess. I did perform a posterior superior alveolar dental block. Patient tolerated the procedure without difficulty. He did report complete resolution of his pain after the injection. I did give him prescription for clindamycin for possibility of early infection. I will give him a prescription for ibuprofen. He is instructed to apply warm compresses to the outside of the face. He is instructed to follow up with dentistry as soon as possible. Return parameters discussed in detail. He is instructed to return here mainly for any new, worsening, or concerning symptoms. He verbalizes understanding and agrees with this plan. Disposition Clinical Impression: Pain, dental Disposition: HOME SELF-CARE Condition: Good Instructions: Dental Caries (ED), Toothache (ED) Additional Instructions: Apply warm compresses to the outside of the face. Take medications as directed. Follow-up with dentistry as soon as possible. Return here immediately for any new, worsening, or concerning symptoms. Prescriptions: Clindamycin HCl 300 mg PO TID #30 cap Ibuprofen 800 mg PO TID PRN #30 tablet PRN Reason: Pain Referrals: Alexandru Louie MD [Primary Care Provider] - 1-2 days Time of Disposition: 03:35
== END 2017-12-25 03:53 | disposition home or self-care (01) ==
LOC: EC 02:37
DX: K02.9 Dental caries, unspecified (principal); F32.9 Major depressive disorder, single episode, unspecified; F41.9 Anxiety disorder, unspecified; F17.200 Nicotine dependence, unspecified, uncomplicated; Z79.899 Other long term (current) drug therapy; Z88.0 Allergy status to penicillin; Z88.1 Allergy status to other antibiotic agents; Z86.14 Personal history of Methicillin resistant Staphylococcus aureus infection
CPT/HCPCS: 64400; 99282

== ENCOUNTER 2018-01-23 21:07 | Emergency (ER) | payer OTHER ==
--- NOTE | 2018-01-23 22:04 | ED ---
General Adult HPI - General Chief complaint: Recheck/Abnormal Lab/Rx Stated complaint: Medical clearance Time Seen by Provider: 01/23/18 21:31 Source: patient Mode of arrival: ambulatory Limitations: no limitations - History of Present Illness Initial comments: 32-year-old male presents to the emergency department for a chief complaint of vomiting and diarrhea. Patient states this started about a week ago and lasted for 3 days. He has been asymptomatic for the past 2-3 days. Patient states he tried to go to work but they told him he needed to be cleared by a provider first. Patient states he vomited multiple times a day and had diarrhea. He also had crampy abdominal pain at that time. Patient denies any sharp abdominal pain. He was able to keep down solids and liquids during this time. Today he is feeling "100% better". Patient denies nausea or diarrhea. Patient does not feel fatigue or dehydrated. Patient states his stools are solid and have not been loose for days. Patient denies any fever or chills. Patient denies blood in the vomit or diarrhea. Patient denies sore throat, ear pain, chest pain, shortness of breath. He does not remember what he ate a week ago when we discussed that it could have been a gastroenteritis. - Related Data Home Medications Medication Instructions Recorded Confirmed Ibuprofen [Motrin] 800 mg PO Q8H PRN 07/29/17 09/05/17 Venlafaxine HCl [Effexor XR] 225 mg PO DAILY 07/29/17 09/05/17 busPIRone HCL 15 mg PO TID 07/29/17 09/05/17 Previous Rx's Medication Instructions Recorded Acetaminophen-Codeine 300-30mg 1 tab PO Q6H PRN #15 tablet 09/05/17 [Tylenol #3] Ibuprofen [Motrin] 600 mg PO Q6HR PRN #20 tab 09/05/17 Clindamycin HCl 300 mg PO TID #30 cap 12/25/17 Ibuprofen 800 mg PO TID PRN #30 tablet 12/25/17 Allergies Allergy/AdvReac Type Severity Reaction Status Date / Time amoxicillin trihydrate Allergy Unknown Verified 01/23/18 21:14 [From Augmentin] potassium clavulanate Allergy Unknown Verified 01/23/18 21:14 [From Augmentin] sulfamethoxazole Allergy Rash/Hives Verified 01/23/18 21:14 [From Bactrim] trimethoprim [From Bactrim] Allergy Rash/Hives Verified 01/23/18 21:14 Review of Systems ROS Statement: Those systems with pertinent positive or pertinent negative responses have been documented in the HPI. ROS Other: All systems not noted in ROS Statement are negative. Past Medical History Additional Past Medical History / Comment(s): Hepatitis C, opiate dependance History of Any Multi-Drug Resistant Organisms: MRSA Date of last positivie culture/infection: 02/26/17 MDRO Source:: foot Past Surgical History: Orthopedic Surgery Additional Past Surgical History / Comment(s): Arthroscopy left shoulder Past Psychological History: Anxiety, Depression Smoking Status: Current every day smoker Past Alcohol Use History: Occasional Past Drug Use History: Marijuana General Exam Limitations: no limitations Head exam: Present: atraumatic, normocephalic, normal inspection Eye exam: Present: normal appearance, PERRL, EOMI. Absent: scleral icterus, conjunctival injection, periorbital swelling ENT exam: Present: normal exam, mucous membranes moist, TM's normal bilaterally Neck exam: Present: normal inspection. Absent: tenderness, meningismus, lymphadenopathy Respiratory exam: Present: normal lung sounds bilaterally. Absent: respiratory distress, wheezes, rales, rhonchi, stridor Cardiovascular Exam: Present: regular rate, normal rhythm, normal heart sounds. Absent: systolic murmur, diastolic murmur, rubs, gallop, clicks GI/Abdominal exam: Present: soft, normal bowel sounds (Normal bowel sounds in all 4 quadrants.). Absent: distended, tenderness (No tenderness to deep palpation in all 4 quadrants.), guarding, rebound, rigid Course Vital Signs 01/23/18 21:12 Temperature 98.2 F Pulse Rate 88 Respiratory 20 Rate Blood Pressure 139/71 O2 Sat by Pulse 99 Oximetry Medical Decision Making - Medical Decision Making 32-year-old male presents to the emergency department for a chief complaint of vomiting and diarrhea. Patient states the symptoms started week ago and lasted a few days. Patient has been asymptomatic for the past 2-3 days. Patient states his work wanted a note clearing him for his job. 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 Patient no longer has loose stools so a stool sample cannot be sent. Patient is no longer vomiting. Patient is feeling "100% better." He has no fevers and is not nauseous or experiencing abdominal pain. Patient will be given a note to return to work. He will return to the emergency Department if he notices the diarrhea or vomiting begins again and he will return if he notices abdominal pain. Patient will follow up with primary care provider in one to 2 days. Disposition Clinical Impression: Viral gastroenteritis Disposition: HOME SELF-CARE Condition: Good Instructions: Gastroenteritis (ED) Additional Instructions: Please return to the emergency department if you have any additional vomiting or diarrhea. Otherwise follow-up with primary care provider in one to 2 days. He can return to work tomorrow as long as you are feeling well. Referrals: None,Stated [Primary Care Provider] - 1-2 days Time of Disposition: 21:56
[2018-01-23 22:22] VITALS: BP 130/80; PULSE 84; RESP 18; TEMP 98.7
== END 2018-01-23 22:21 | disposition home or self-care (01) ==
LOC: EC 21:07
DX: A08.4 Viral intestinal infection, unspecified (principal); F17.200 Nicotine dependence, unspecified, uncomplicated; F32.9 Major depressive disorder, single episode, unspecified; F41.9 Anxiety disorder, unspecified; Z86.14 Personal history of Methicillin resistant Staphylococcus aureus infection; Z86.19 Personal history of other infectious and parasitic diseases; Z88.0 Allergy status to penicillin; Z88.1 Allergy status to other antibiotic agents; Z88.2 Allergy status to sulfonamides; Z79.899 Other long term (current) drug therapy
CPT/HCPCS: 99283

== ENCOUNTER 2018-01-25 20:44 | Inpatient (IN) | payer MEDICAID, OTHER ==
[2018-01-25] MEDS ORDERED: DICYCLOMINE 10 MG/ML 2 ML AMP IM STA (23:06)
[2018-01-25] MEDS ORDERED: cloNIDine HCL/PF 100 MCG in SODIUM CHLORIDE 0.9% 100 ML IVPB ONE (23:06)
[2018-01-25] MEDS ORDERED: SODIUM CHLORIDE 0.9% 1,000 ML IV ONE (23:07)
[2018-01-25] MEDS ORDERED: ONDANSETRON 4 MG/2 ML VIAL IVP STA (23:07)
--- NOTE | 2018-01-25 23:13 | ED ---
General Adult HPI - General Chief complaint: Recheck/Abnormal Lab/Rx Stated complaint: Withdrawl Time Seen by Provider: 01/25/18 22:50 Source: patient Mode of arrival: ambulatory Limitations: no limitations - History of Present Illness Initial comments: 32-year-old male presenting with Suboxone withdrawal. Patient states that he has been on Suboxone for the last 3 days. He recently had an insurance lapse was unable to see his prescribing physician. He states he thought he would be able to get her to withdraw himself but today he has had intense abdominal cramping, copious diarrhea, and multiple episodes of emesis. He states he called the help line who stated that it was too late to do intake. Patient states he currently has insurance now. He just wants up into "stop his discomfort and his feeling of being on edge." - Related Data Home Medications Medication Instructions Recorded Confirmed Venlafaxine HCl [Effexor XR] 225 mg PO DAILY 07/29/17 01/25/18 busPIRone HCL 15 mg PO TID 07/29/17 01/25/18 Buprenorphine HCl/Naloxone HCl 1 film SL BID 01/25/18 01/25/18 [Suboxone 8 mg-2 mg Sl Film] Allergies Allergy/AdvReac Type Severity Reaction Status Date / Time amoxicillin trihydrate Allergy Unknown Verified 01/26/18 03:52 [From Augmentin] potassium clavulanate Allergy Unknown Verified 01/26/18 03:52 [From Augmentin] sulfamethoxazole Allergy Rash/Hives Verified 01/26/18 03:52 [From Bactrim] trimethoprim [From Bactrim] Allergy Rash/Hives Verified 01/26/18 03:52 Review of Systems ROS Statement: Those systems with pertinent positive or pertinent negative responses have been documented in the HPI. Review of Systems Constitutional: Denies fever, chills Eyes: Denies change in vision, Denies pain Ears, nose, mouth, throat: Denies headaches, Denies sore throat Cardiovascular: Denies chest pain. Denies palpitations Respiratory: Denies shortness of breath, Denies cough Gastrointestinal: Positive abdominal pain, N/V/D. Genitourinary: Denies hematuria, Denies infections Musculoskeletal: Denies pain, Denies swelling Integumentary: Denies rash Neurological: Denies headache, focal weakness, focal numbness Psychiatric: Admits to anxiety. Denies depression Hematologic/Lymphatic: Denies easy bleeding or bruising ROS Other: All systems not noted in ROS Statement are negative. Past Medical History Additional Past Medical History / Comment(s): Hepatitis C, opiate dependance History of Any Multi-Drug Resistant Organisms: MRSA Date of last positivie culture/infection: 02/26/17 MDRO Source:: foot Past Surgical History: Orthopedic Surgery Additional Past Surgical History / Comment(s): Arthroscopy left shoulder Past Psychological History: Anxiety, Depression Smoking Status: Current every day smoker Past Alcohol Use History: Occasional Past Drug Use History: Marijuana, Opiates, Prescription Drug Abuse - Past Family History Mother Additional Family Medical History / Comment(s): Manic Depressive, Addiction Hx Father Family Medical History: Seizure Disorder Additional Family Medical History / Comment(s): Anxiety Daughter(s) Family Medical History: No Reported History General Exam - General Exam Comments Initial Comments: General: Awake, alert, No acute Distress. Disheveled appearance. HENT: Normocephalic. Atraumatic Eyes: PERRL. EOMI. No scleral icterus. No injected conjunctiva Neck: Full ROM Chest/Lungs: Clear to auscultation bilaterally. No wheezing, rhonchi, or rales Cardiac: Regular rate, rhythm. No murmurs or rubs Abdomen/GI: Generalized tenderness. Hyperactive bowel sounds. No rebound, guarding, or rigidity. Musculoskeletal: Full ROM Skin: Warm, dry, intact Neurologic: A/Ox3, no weakness, no sensory deficit, no abdnormal gait, no coordination deficit Psych: Anxious appearing. Limitations: no limitations Course Vital Signs 01/25/18 01/26/18 01/26/18 21:22 00:00 02:00 Temperature 97.9 F 97.6 F Pulse Rate 89 83 66 Respiratory 18 18 17 Rate Blood Pressure 127/81 123/79 111/58 O2 Sat by Pulse 98 100 99 Oximetry Medical Decision Making - Medical Decision Making 32-year-old male presenting with Suboxone withdrawal symptoms. Initial exam the patient is awake, alert, no acute distress. VSS. 1228 Unable to obtain IV access. Patient now stating that if he gets discharged he will "jump into traffic and kill myself." He states this is what happened every time he goes through any kind of which all. He states he is homeless, is cold, has nowhere to sleep, and feels so sick that he just wants to end it. He states that before when he is going through withdrawal he tried to drink a bottle of bleach in a suicide attempt. The remainder of the patient's care has been signed out to the night physician while awaiting EPS evaluation. Disposition Clinical Impression: Suicidal ideations, Withdrawal from opioids Disposition: TRANSFER TO PSYCH HOSP/UNIT Condition: Good
[2018-01-25] MEDS ORDERED: ONDANSETRON ODT 4 MG TAB PO STA (23:58)
[2018-01-26] MEDS ORDERED: cloNIDine HCL 0.1 MG TAB PO STA (00:13)
[2018-01-26] MEDS ORDERED: METHADONE 10 MG TAB PO STA (00:25)
[2018-01-26] MEDS ORDERED: MAGNESIUM HYDROXIDE 2,400 MG/10 ML CUP PO PRN (03:06)
[2018-01-26] MEDS ORDERED: MAG HYDROX/AL HYDROX/SIMETH 30 ML CUP PO PRN (03:06)
[2018-01-26] MEDS ORDERED: ZIPRASIDONE 20 MG VIAL IM PRN (03:06)
[2018-01-26 03:39] VITALS: BMI 17.6
--- NOTE | 2018-01-26 07:22 | P.MDCNMH ---
History of Present Illness H&P Date: 01/26/18 Chief Complaint: Medical management 32-year-old male with history of hepatitis C and opiate dependence. He presented to the hospital due to) symptoms of opiate withdrawal. He reports that he has been on Suboxone for couple days however his insurance lapsed and he ran out. His main complaint in the emergency department was abdominal cramps , vomiting and diarrhea however upon my interview this morning he denied any of these symptoms. He reported that he had some suicidal ideation and decided to come to the hospital. Seems like the patient is giving variable reports regarding why he is in the hospital and he didn't show interest to be engaged in a detailed conversation. He claims to be feeling fine at this time and denied any physical or medical concerns Review of Systems Constitutional: Patient denies fever, denies chills, denies night sweating, denies significant weight changes Eyes: Patient denies visual changes, denies eye pain ENT: Patient denies ear pain, denies rhinorrhea, denies sore throat Cardiovascular: Patient denies chest pain, denies exertional dyspnea, denies peripheral leg edema, denies orthopnea, denies paroxysmal nocturnal dyspnea Respiratory:Patient denies cough, denies wheezing, denies shortness of breath Gastrointestinal: Patient denies diarrhea, denies constipation, denies nausea , denies vomiting, denies abdominal pain Genitourinary: Patient denies dysuria, denies hematuria, denies changes in urinary habits, denies genital lesions Musculoskeletal: Patient denies muscle pain, denies joint pain Psychiatric: Patient denies changes in mood or memory, reported suicidal ideation, denies anxiety Endocrine: Patient denies heat intolerance, denies cold intolerance, denies excessive thirst, denies polyuria Neurological: Patient denies focal neurologic deficits, denies weakness, denies numbness, denies tingling Hem/Lymphatic: Patient denies bleeding tendency, denies bruising, denies swollen lymph glands Allergic/Immun: Patient denies recent allergic reactions Skin: Patient denies rashes, denies pruritis, denies ulcers Past Medical History Additional Past Medical History / Comment(s): Hepatitis C, opiate dependance History of Any Multi-Drug Resistant Organisms: MRSA Date of last positivie culture/infection: 02/26/17 MDRO Source:: foot- bilaterial Past Surgical History: Orthopedic Surgery Additional Past Surgical History / Comment(s): Arthroscopy left shoulder Past Anesthesia/Blood Transfusion Reactions: No Reported Reaction Past Psychological History: Anxiety, Depression Smoking Status: Current every day smoker Past Alcohol Use History: Occasional Additional Past Alcohol Use History / Comment(s): Patient states that he drinks alcohol occasional last use was 2.5 months ago. Past Drug Use History: Cocaine, Heroin, IV Drug Use, Marijuana, Opiates, Prescription Drug Abuse Additional Drug Use History / Comment(s): Cocaine: last use December 31 2017, smoked one time. Herion: last use January 23, 2018 snorted. MJ: last used 2 weeks ago. Opiates: Suboxone 2mg- buys off the street since Sep 2017, injects IV to make it last longer, Pt states that he has used every opiate to keep him from going through withdrawals. Pt states that he also would use a low dose of methadone at times. Xanax Bar 2.25mg: Pt states he buys off the street and takes before bed, last use 01/24/18 - Past Family History Mother Additional Family Medical History / Comment(s): Manic Depressive, Addiction Hx Father Family Medical History: Seizure Disorder Additional Family Medical History / Comment(s): Anxiety Daughter(s) Family Medical History: No Reported History Medications and Allergies Home Medications and Allergies Comment(s): Patient claimed that he is not supposed to take any medications at home. And he reported that he is not currently taking any medications Home Medications Medication Instructions Recorded Confirmed Type Venlafaxine HCl [Effexor XR] 225 mg PO DAILY 07/29/17 01/25/18 History busPIRone HCL 15 mg PO TID 07/29/17 01/25/18 History Buprenorphine HCl/Naloxone HCl 1 film SL BID 01/25/18 01/25/18 History [Suboxone 8 mg-2 mg Sl Film] Allergies Allergy/AdvReac Type Severity Reaction Status Date / Time amoxicillin trihydrate Allergy Unknown Verified 01/26/18 03:52 [From Augmentin] potassium clavulanate Allergy Unknown Verified 01/26/18 03:52 [From Augmentin] sulfamethoxazole Allergy Rash/Hives Verified 01/26/18 03:52 [From Bactrim] trimethoprim [From Bactrim] Allergy Rash/Hives Verified 01/26/18 03:52 Physical Exam Vitals: Vital Signs Temp Pulse Pulse Resp BP BP Pulse Ox 01/26/18 03:07 97.9 F 61 14 103/64 96 01/26/18 02:00 97.6 F 66 17 111/58 99 01/26/18 00:00 83 18 123/79 100 01/25/18 21:22 97.9 F 89 18 127/81 98 Intake and Output 01/25/18 01/26/18 01/26/18 22:59 06:59 14:59 Other: Weight 61.235 kg 58.8 kg Constitutional: No acute distress, conversant, pleasant Eyes: Anicteric sclerae, moist conjunctiva, no lid-lag Pupils equal round reactive to light ENMT: NC/AT Oropharynx clear, no erythema, exudates Neck: Supple, FROM, no masses, or JVD No carotid bruits No thyromegaly Lungs: Clear to auscultation Clear to percussion Normal respiratory effort, no accessory muscle use Cardiovascular: Heart regular in rate and rhythm, No murmurs, gallops, or rubs No peripheral edema Abdominal: Soft Nontender, no guarding, rebound or rigidity Abdomen moving with respiration Normoactive bowel sounds No hepatomegaly, No splenomegaly No palpable mass No abdominal wall hernia noted Skin: Normal temperature, tone, texture, turgor No induration No subcutaneous nodules No rash, lesions No ulcers Extremities: No digital cyanosis No clubbing Pedal pulses intact and symmetrical Radial pulses intact and symmetrical No calf tenderness Psychiatric: Alert and oriented to person, place and time Flat affect, avoiding eye contact fair judgment Neuro Muscles Strength 5/5 in all 4 extremities Sensation to light touch grossly present throughout No focal sensory deficits Lymphatics: no palpable cervical or supraclavicular , or inguinal lymph nodes Cranial Nerve Examination - Cranial Nerves Cranial Nerve II- Optic: Intact Cranial Nerve III- Oculomotor: Intact Cranial Nerve IV- Trochlear: Intact Cranial Nerve V- Trigeminal: Intact Cranial Nerve - Abducens: Intact Cranial Nerve VII- Facial: Intact Cranial Nerve VIII- Auditory: Intact Cranial Nerve IX- Glossopharyngeal: Intact Cranial Nerve X- Vagus: Intact Cranial Nerve XI- Accessory: Intact Cranial Nerve XII- Hypoglossal: Intact Assessment and Plan Plan: 32-year-old male with history of polysubstance abuse presented to the hospital per ED notes due to symptoms of opiate withdrawal however patient currently denies any physical complaints at this time. #Opiates withdrawal Patient counseled regarding polysubstance abuse Symptomatic control of diarrhea abdominal cramps and vomiting if any Encourage by mouth intake and advance as tolerated #Patient claims suicidal ideation Suicidal precautions Management per psych #History of hepatitis C Check AFP #DVT prophylaxis Patient is ambulatory low risk Thank you for allowing us to participate in the care of this patient. We will follow peripherally. Do not hesitate to contact us with questions. Someone can be reached from the [facility] hospitalist group at all hours of the day at [phone].
[2018-01-26] MEDS: NICOTINE 14MG/24HR PATCH TRANSDERM SCH (08:45)
[2018-01-26] MEDS: LORazepam 1 MG TAB PO PRN ×3 (08:45→23:21)
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
[2018-01-26] MEDS: busPIRone HCl 10 MG TAB PO SCH ×2 (09:28→20:52)
[2018-01-26] MEDS: VENLAFAXINE HCL ER 75 MG CAP PO SCH (09:28)
[2018-01-26 10:48] LABS: Appearance,Urine Clear (Clear); Bilirubin,Urine Negative (Negative); Blood,Urine Negative (Negative); Color,Urine Yellow; Glucose,Urine (UA) Negative (Negative); Ketones,Urine Negative (Negative); Leukocyte Esterase,Urine Negative (Negative); Nitrite,Urine Negative (Negative); PH, Urine 6.5 (5.0-8.0); Protein,Urine Trace (Negative); Specific Gravity,Urine 1.028 (1.001-1.035)
[2018-01-26 12:18] LABS: Amphetamine Screen,Urine Not Detected (NotDetected); Barbiturate Screen,Urine Not Detected (NotDetected); Benzodiazepines Screen,Urine Not Detected (NotDetected); Cocaine Screen,Urine Not Detected (NotDetected); Methadone Screen, Urine Detected (NotDetected); Opiate Screen,Urine Not Detected (NotDetected); Oxycodone Screen, Urine Not Detected (NotDetected); Phencyclidine Screen,Urine Not Detected (NotDetected); Tricyclic Antidepressant,Urine Not Detected (NotDetected); Urn Cannabinoid Scrn Detected (NotDetected)
[2018-01-26 17:59] LABS: Hemoglobin A1C 5.7 % (4.0-6.0)
[2018-01-27] MEDS: busPIRone HCl 10 MG TAB PO SCH ×2 (08:25→20:04)
[2018-01-27] MEDS: VENLAFAXINE HCL ER 75 MG CAP PO SCH (08:25)
[2018-01-27] MEDS: NICOTINE 14MG/24HR PATCH TRANSDERM SCH (08:25)
[2018-01-27] MEDS: LORazepam 1 MG TAB PO PRN ×2 (08:26→15:25)
[2018-01-27] MEDS ORDERED: VENLAFAXINE HCL ER 150 MG CAP PO SCH (09:00)
--- NOTE | 2018-01-27 09:04 | P.PN ---
Progress Note - Text Interval history: The patient is found in his room he follows me to an interview room. He states that he slept poorly last night and was awake "thrashing". Staff reported he slept 6 hours. We discussed that sleep disturbance could be due to a number of variables including withdrawal from opiates. He is encouraged to attend groups and stay out of bed during the day today to promote better sleep in the evening. He stated that he had had some success with melatonin in the past for sleep. We discussed the psychotropic medications his questions were answered. We are awaiting a placement date for [facility]. He reported attending 1 group yesterday. Mental status exam: The patient is a thin male appearing his stated age. He is casually dressed he has a disheveled appearance hygiene is fair. Eye contact is appropriate speech is fluent nonpressured. He has some spontaneous speech but mainly responds to questions asked. He reports his mood is "mellow" "I'm existing". He feels safe in the hospital is endorsing no acute suicidal ideation he is reporting no homicidal ideation. He is reporting no auditory or visual hallucinations or any specific delusions. There is no observed evidence of psychosis. He demonstrates no tangential thinking loose associations or flight of ideas. He does not appear hypomanic or manic. He remains oriented to person place and date. He demonstrates no abnormal involuntary movements he demonstrates no verbal or physical aggressiveness. Plan: The patient's will continue on his current psychotropic medications we will titrate the Effexor XR to 150 mg daily. Continue BuSpar as written I will start melatonin 5 mg at bedtime. Again he is instructed to attend groups and not go back to bed during the day. Vital signs reviewed. We will continue to monitor him for safety. We will await the placement date for [facility]. He will likely need custodial placement in the interim.
[2018-01-27 10:10] LABS: ALT 16 U/L (21-72); AST 27 U/L (17-59); Albumin 4.3 g/dL (3.5-5.0); Alkaline Phosphatase 94 U/L (38-126); Anion Gap 12 mmol/L; Blood Urea Nitrogen 20 mg/dL (9-20); Calcium 9.9 mg/dL (8.4-10.2); Carbon Dioxide 26 mmol/L (22-30); Chloride 101 mmol/L (98-107); Cholesterol 184 mg/dL (<200); Glucose 130 mg/dL (74-99); HDL Cholesterol 61 mg/dL (40-60); LDL Cholesterol,Calculated 88 mg/dL (0-99); Potassium 4.7 mmol/L (3.5-5.1); Sodium 139 mmol/L (137-145); Total Bilirubin 0.4 mg/dL (0.2-1.3); Total Protein 7.5 g/dL (6.3-8.2); Triglycerides 176 mg/dL (<150)
[2018-01-27 10:15] LABS: Basophils # (A) 0.1 k/uL (0-0.2); Basophils % (A) 1 %; Eosinophils # (A) 0.3 k/uL (0-0.7); Eosinophils % (A) 2 %; HCT 43.3 % (39.0-53.0); HGB 13.8 gm/dL (13.0-17.5); Lymphocytes # (A) 2.5 k/uL (1.0-4.8); Lymphocytes % (A) 21 %; MCHC 31.8 g/dL (31.0-37.0); MCV 81.7 fL (80.0-100.0); Mean Platelet Volume 7.6; Monocytes # (A) 0.4 k/uL (0-1.0); Monocytes % (A) 4 %; Neutrophils # (A) 8.3 k/uL (1.3-7.7); Neutrophils % (A) 71 %; Platelet Count 329 k/uL (150-450); RBC 5.29 m/uL (4.30-5.90); WBC 11.7 k/uL (3.8-10.6)
[2018-01-27] MEDS: ACETAMINOPHEN TAB 325 MG TAB PO PRN ×2 (15:12→20:04)
[2018-01-27] MEDS ORDERED: HYOSCYAMINE SULFATE 0.125 MG TAB PO PRN (20:21)
[2018-01-27] MEDS ORDERED: LOPERAMIDE 2 MG CAP PO STA (20:21)
[2018-01-27] MEDS ORDERED: LOPERAMIDE 2 MG CAP PO PRN (20:21)
[2018-01-27] MEDS ORDERED: ONDANSETRON ODT 4 MG TAB PO PRN (20:21)
[2018-01-27] MEDS ORDERED: ONDANSETRON 4 MG/2 ML VIAL IM PRN (20:58)
[2018-01-27] MEDS ORDERED: MELATONIN 5 MG TABLET PO SCH (21:00)
[2018-01-27] MEDS ORDERED: LORazepam 2 MG/ML INJ IM PRN (21:51)
[2018-01-28] MEDS: ACETAMINOPHEN TAB 325 MG TAB PO PRN (01:59)
[2018-01-28] MEDS ORDERED: VENLAFAXINE HCL ER 150 MG CAP PO SCH (09:00)
[2018-01-28] MEDS: NICOTINE 14MG/24HR PATCH TRANSDERM SCH (09:42)
--- NOTE | 2018-01-28 09:42 | P.DS ---
Providers Date of admission: 01/26/18 02:00 Expected date of discharge: 01/28/18 Attending physician: Aneesh Richardson Consults: 01/26/18 03:06 Consult Physician Routine Consulting Provider: Karen Méndez Consult Reason/Comments: For H & P for Medical Follow Up Do you want consulting provider notified?: Yes Primary care physician: Stated None - Discharge Diagnosis(es) (1) Major depressive disorder, recurrent severe without psychotic features Current Visit: Yes Status: Acute Priority: High (2) Opioid use disorder, severe, dependence Current Visit: Yes Status: Acute Priority: High (3) Moderate benzodiazepine use disorder Current Visit: Yes Status: Acute Priority: Medium (4) Anxiety Current Visit: Yes Status: Acute Priority: Medium Hospital Course: Brief summary of admission note: This patient is a 32-year-old male who was admitted to the mental health unit for acute suicidal ideation. He reported he had been off of Suboxone and other opiates for several days and was feeling depressed and was having hopeless thinking. He reported that historically when feeling this bad he had attempted suicide. He endorsed several stressors including likely loss of job, homelessness, and an impending divorce. He had been successfully treated with Effexor XR and BuSpar but had been off this medication for approximately one month. He felt symptoms of depression and anxiety had relapsed. For full details please refer to the psychiatric evaluation dated 01/26/2018. Summary of hospital course: The patient was admitted to the mental health unit voluntarily. We reviewed his presenting symptoms and treatment options. He did feel that the Effexor XR and BuSpar provided symptomatic relief in the past for depressive and anxiety symptoms. They were both restarted and the Effexor XR was titrated during the course of the hospitalization. Melatonin was used for sleep which she found helpful. The patient indicated he was willing to attend inpatient chemical dependency treatment. Placement at [facility] was arranged for February 10. The patient reported a resolution of suicidal ideation while here on the mental health unit. He demonstrates future oriented thinking. He has been tolerating the psychotropic medication without report of side effects. He minimally participated in groups despite encouragement. He is able to attend to his activities of daily living. Mental status exam: The patient is alert he is dressed in his own clothing hygiene adequate. Eye contact appropriate. He seated calmly in his chair. He reports his mood is better he is reporting no suicidal or homicidal ideation intent or plan. He reports no auditory or visual hallucinations or any specific delusions. There is no observed evidence of psychosis. He demonstrates no tangential thinking loose associations or flight of ideas. He does not appear hypomanic or manic. He demonstrates no verbal or physical aggressiveness. He demonstrates no abnormal involuntary movements. He remains oriented to person place and date. He maintains mainly a constricted affect but is capable demonstrating range of affect. Impressions 1. Major depressive disorder recurrent severe without psychosis, opioid use disorder, benzodiazepine use disorder, anxiety unspecified 2. Hepatitis C, history of hip fracture 3. Homeless, likely unemployment, marital discord likely resulting in divorce Plan: The patient will be discharged from the mental health unit today. We will explore penitentiary placement options for him. He states he does have a friend he could stay with if necessary. He has been scheduled to start inpatient chemical dependency treatment on February 10 at [facility]. He is instructed to attend AA or NA meetings daily prior to that. He will follow up with [facility] upon discharge prior to his appointment was [facility]. He will continue on Effexor XR 150 mg daily BuSpar 10 mg twice daily. These medications may require further titration. We discussed the importance of him abstaining from any opiates alcohol marijuana or other illicit drugs. We discussed that use of these substances can elevate his safety risk. At this time there is no imminent safety risk he is appropriate for transition to outpatient care and does not require continued inpatient psychiatric hospitalization. He is instructed to return to the hospital with any acute safety concerns. Patient Condition at Discharge: Stable Plan - Discharge Summary Discharge Rx Participant: Yes New Discharge Prescriptions: New busPIRone HCl [Buspar] 10 mg PO BID #60 tab Melatonin 5 mg PO HS #30 tablet Nicotine 14Mg/24Hr Patch [Habitrol] 1 patch TRANSDERM DAILY #12 patch Venlafaxine HCl ER [Effexor XR] 150 mg PO DAILY #30 cap.er.24h Discontinued busPIRone HCL 15 mg PO TID Venlafaxine HCl [Effexor XR] 225 mg PO DAILY Buprenorphine HCl/Naloxone HCl [Suboxone 8 mg-2 mg Sl Film] 1 film SL BID Discharge Medication List Melatonin 5 mg PO HS #30 tablet 01/28/18 [Rx] Nicotine 14Mg/24Hr Patch [Habitrol] 1 patch TRANSDERM DAILY #12 patch 01/28/18 [ Rx] Venlafaxine HCl ER [Effexor XR] 150 mg PO DAILY #30 cap.er.24h 01/28/18 [Rx] busPIRone HCl [Buspar] 10 mg PO BID #60 tab 01/28/18 [Rx] Follow up Appointment(s)/Referral(s): [facility] [Outside] - 02/10/18 10:00 am (Intake 02/10/18 at 10: 00am) None,Stated [Primary Care Provider] - 1-2 days
[2018-01-28] MEDS: busPIRone HCl 10 MG TAB PO SCH (09:43)
[2018-01-28] MEDS: LORazepam 1 MG TAB PO PRN (09:44)
[2018-01-28 09:49] VITALS: BP 140/75; PULSE 126; RESP 20; TEMP 98.2
== END 2018-01-28 12:28 | disposition home or self-care (01) | DRG 885 ==
LOC: EC 20:44 → 3MHU 01-26 02:00
PROVIDERS: ADMIT Psychiatry & Neurology Psychiatry; ATTEND Psychiatry & Neurology Psychiatry
DX: F33.2 Major depressive disorder, recurrent severe without psychotic features (principal); F11.20 Opioid dependence, uncomplicated; R45.851 Suicidal ideations; F13.239 Sedative, hypnotic or anxiolytic dependence with withdrawal, unspecified; F41.9 Anxiety disorder, unspecified; F17.200 Nicotine dependence, unspecified, uncomplicated; F12.90 Cannabis use, unspecified, uncomplicated; B19.20 Unspecified viral hepatitis C without hepatic coma; Z87.81 Personal history of (healed) traumatic fracture; Z59.0 Homelessness; Z63.5 Disruption of family by separation and divorce; Z91.5 Personal history of self-harm; Z86.14 Personal history of Methicillin resistant Staphylococcus aureus infection; Z81.8 Family history of other mental and behavioral disorders; Z81.3 Family history of other psychoactive substance abuse and dependence; Z79.899 Other long term (current) drug therapy; Z82.0 Family history of epilepsy and other diseases of the nervous system; Z88.1 Allergy status to other antibiotic agents; Z88.2 Allergy status to sulfonamides; Z63.79 Other stressful life events affecting family and household
CPT/HCPCS: 80053; 80061; 80306; 81003; 82075; 82105; 83036; 84443; 85025; 96372; 99285

== ENCOUNTER 2018-02-02 10:15 | Emergency (ER) | payer OTHER ==
[2018-02-02 10:27] VITALS: BP 141/70; PULSE 79; RESP 20; TEMP 98
[2018-02-02] MEDS ORDERED: ONDANSETRON ODT 4 MG TAB PO STA (10:48)
[2018-02-02] MEDS ORDERED: DICYCLOMINE 10 MG/ML 2 ML AMP IM STA (10:48)
[2018-02-02] MEDS ORDERED: SODIUM CHLORIDE 0.9% 1,000 ML IV ONE (10:48)
[2018-02-02] MEDS ORDERED: BACLOFEN 10 MG TAB PO STA (10:48)
--- NOTE | 2018-02-02 10:55 | ED ---
General Adult HPI - General Chief complaint: Recheck/Abnormal Lab/Rx Stated complaint: Withdrawls Time Seen by Provider: 02/02/18 10:35 Source: patient Mode of arrival: ambulatory Limitations: no limitations - History of Present Illness Initial comments: Davion Becker is a 32-year-old male with a past medical history of polysubstance abuse who presents to the emergency department today for evaluation of possible opiate withdrawal. Patient reports he has been using opiates for the past few years, recently he has been making attempts to stop using, he was evaluated in the hospital previously and admitted to our psychiatric floor for withdrawal. Patient reports that over the past week she's been making more significant attempts to quit using, he states that he will not use for one day but will wake up sick and then will use. His last use he reports was yesterday. He states that he intended to by heroin but believes he got fentanyl, however it did improve his withdrawal symptoms. He returns to the emergency Department today with complaints of nausea, vomiting, diarrhea and generalized feeling unwell. Patient states that during previous ER visits he's been treated with methadone and would like methadone today. Patient reports that he uses IV and skin popping as a method of drug administration. He states that he uses clean needles, does not share his needles and makes attempts to clean his skin prior to injection. He reports that he typically injects in his legs. - Related Data Previous Rx's Medication Instructions Recorded Melatonin 5 mg PO HS #30 tablet 01/28/18 Nicotine 14Mg/24Hr Patch [Habitrol] 1 patch TRANSDERM DAILY #12 patch 01/28/18 Venlafaxine HCl ER [Effexor XR] 150 mg PO DAILY #30 cap.er.24h 01/28/18 busPIRone HCl [Buspar] 10 mg PO BID #60 tab 01/28/18 Allergies Allergy/AdvReac Type Severity Reaction Status Date / Time amoxicillin trihydrate Allergy Unknown Verified 02/02/18 10:27 [From Augmentin] potassium clavulanate Allergy Unknown Verified 02/02/18 10:27 [From Augmentin] sulfamethoxazole Allergy Rash/Hives Verified 02/02/18 10:27 [From Bactrim] trimethoprim [From Bactrim] Allergy Rash/Hives Verified 02/02/18 10:27 Review of Systems ROS Statement: Those systems with pertinent positive or pertinent negative responses have been documented in the HPI. ROS Other: All systems not noted in ROS Statement are negative. Constitutional: Reports: chills Respiratory: Denies: dyspnea Cardiovascular: Denies: chest pain, palpitations Endocrine: Reports: fatigue Gastrointestinal: Reports: nausea, vomiting, diarrhea Genitourinary: Denies: dysuria Skin: Reports: lesions (Subcutaneous injection sites on legs) Neurological: Denies: confusion Psychiatric: Reports: anxiety. Denies: auditory hallucinations, visual hallucinations, homicidal thoughts, suicidal thoughts Hematological/Lymphatic: Denies: easy bleeding Past Medical History Additional Past Medical History / Comment(s): Hepatitis C, opiate dependance History of Any Multi-Drug Resistant Organisms: MRSA Date of last positivie culture/infection: 02/26/17 MDRO Source:: foot Past Surgical History: Orthopedic Surgery Additional Past Surgical History / Comment(s): Arthroscopy left shoulder Past Anesthesia/Blood Transfusion Reactions: No Reported Reaction Past Psychological History: Anxiety, Depression Smoking Status: Current every day smoker Past Alcohol Use History: Occasional Past Drug Use History: Marijuana, Opiates, Prescription Drug Abuse - Past Family History Mother Additional Family Medical History / Comment(s): Manic Depressive, Addiction Hx Father Family Medical History: Seizure Disorder Additional Family Medical History / Comment(s): Anxiety Daughter(s) Family Medical History: No Reported History General Exam Limitations: no limitations General appearance: alert, anxious, other (Appears uncomfortable) Head exam: Present: atraumatic, normocephalic Eye exam: Present: normal appearance, PERRL (Pupils 5 mm and reactive) ENT exam: Present: normal exam Neck exam: Present: normal inspection Respiratory exam: Present: normal lung sounds bilaterally. Absent: respiratory distress Cardiovascular Exam: Present: regular rate, normal rhythm GI/Abdominal exam: Present: soft. Absent: distended Rectal exam: Present: deferred Extremities exam: Present: full ROM, other (Injection sites right lower extremity, no signs of infection) Neurological exam: Present: alert, oriented X3 Psychiatric exam: Present: anxious, flat affect Skin exam: Present: warm, dry Course Vital Signs 02/02/18 10:24 Temperature 98.0 F Pulse Rate 79 Respiratory 20 Rate Blood Pressure 141/70 O2 Sat by Pulse 100 Oximetry Medical Decision Making - Medical Decision Making Patient was seen and evaluated, history was obtained from the patient and review of medical record Patient with a history of opiate abuse, currently attempting to decrease his opiate use, suffering from withdrawal symptoms Will treat symptomatically with clonidine for hypertension, Zofran, Bentyl and baclofen Patient with nausea, vomiting and diarrhea, clinically does not appear dehydrated however is requesting IV fluid rehydration. However patient does have difficult vascular access secondary to multiple years of IV drug abuse. Advised that we will attempt vascular access however if unsuccessful we will pursue oral rehydration therapy. 11:05 Prior to receiving any treatment, patient was noted to walk out of the ER without speaking to ER physician or staff. Disposition Clinical Impression: Opiate abuse, continuous Disposition: Left Against Medical Advice Referrals: None,Stated [Primary Care Provider] - 1-2 days Time of Disposition: 11:05 (Patient eloped from the ER )
[2018-02-02] MEDS ORDERED: cloNIDine 0.1 MG/24HR PATCH 1 PATCH PATCH TRANSDERM SCH (11:00)
== END 2018-02-02 11:05 | disposition left against medical advice (07) ==
LOC: EC 10:15
DX: F11.20 Opioid dependence, uncomplicated (principal); F41.9 Anxiety disorder, unspecified; R11.2 Nausea with vomiting, unspecified; R19.7 Diarrhea, unspecified; F17.200 Nicotine dependence, unspecified, uncomplicated; Z53.29 Procedure and treatment not carried out because of patient's decision for other reasons; Z86.14 Personal history of Methicillin resistant Staphylococcus aureus infection; Z88.0 Allergy status to penicillin; Z88.1 Allergy status to other antibiotic agents; Z88.2 Allergy status to sulfonamides
CPT/HCPCS: 99283

== ENCOUNTER 2018-02-02 21:48 | Emergency (ER) | payer OTHER ==
--- NOTE | 2018-02-02 23:18 | ED ---
Anxiety HPI - General Chief Complaint: Anxiety Stated Complaint: revisit withdrawls Time Seen by Provider: 02/02/18 22:08 Source: patient, RN notes reviewed Mode of arrival: ambulatory - History of Present Illness Initial Comments: This is a 32-year-old male who presents to the emergency department with chief complaint of anxiety. Patient states that he has been withdrawing from opiates. He states that he is going to be admitted to [facility] on February 10 for substance abuse recovery. Patient states that he did present to the emergency department earlier today but did leave against medical advice. He states that after he left the emergency department he had a panic attack and outbursts. He states that he damaged another person's property. He states that he was recently a patient on the psychiatric unit here in the hospital. He states that he would like to be made inpatient so that he has a safe place to stay. Patient denies suicidal or homicidal ideation. Denies visual or auditory hallucinations. He does admit to previous heroin and morphine abuse. He states that he took morphine this morning. Has no other complaints. States that currently feels well physically. - Related Data Home Medications: Previous Rx's Medication Instructions Recorded Melatonin 5 mg PO HS #30 tablet 01/28/18 Nicotine 14Mg/24Hr Patch [Habitrol] 1 patch TRANSDERM DAILY #12 patch 01/28/18 Venlafaxine HCl ER [Effexor XR] 150 mg PO DAILY #30 cap.er.24h 01/28/18 busPIRone HCl [Buspar] 10 mg PO BID #60 tab 01/28/18 Dicyclomine [Bentyl] 10 mg PO TID #15 capsule 02/03/18 Ondansetron Odt [Zofran Odt] 4 mg PO Q8HR PRN #15 tab 02/03/18 Allergies/Adverse Reactions: Allergies Allergy/AdvReac Type Severity Reaction Status Date / Time amoxicillin trihydrate Allergy Unknown Verified 02/02/18 22:10 [From Augmentin] potassium clavulanate Allergy Unknown Verified 02/02/18 22:10 [From Augmentin] sulfamethoxazole Allergy Rash/Hives Verified 02/02/18 22:10 [From Bactrim] trimethoprim [From Bactrim] Allergy Rash/Hives Verified 02/02/18 22:10 Review of Systems ROS Statement: Those systems with pertinent positive or pertinent negative responses have been documented in the HPI. ROS Other: All systems not noted in ROS Statement are negative. Past Medical History Past Medical History: No Reported History Additional Past Medical History / Comment(s): Hepatitis C, opiate dependance History of Any Multi-Drug Resistant Organisms: MRSA Date of last positivie culture/infection: 02/26/17 MDRO Source:: foot Past Surgical History: Orthopedic Surgery Additional Past Surgical History / Comment(s): Arthroscopy left shoulder Past Anesthesia/Blood Transfusion Reactions: No Reported Reaction Past Psychological History: Anxiety, Depression Smoking Status: Current every day smoker Past Alcohol Use History: Occasional Past Drug Use History: Marijuana, Opiates, Prescription Drug Abuse - Past Family History Mother Additional Family Medical History / Comment(s): Manic Depressive, Addiction Hx Father Family Medical History: Seizure Disorder Additional Family Medical History / Comment(s): Anxiety Daughter(s) Family Medical History: No Reported History General Exam - General Exam Comments Initial Comments: General: Awake and alert, well-developed; in no apparent distress. Calm and cooperative. HEENT: Head atraumatic, normocephalic. Pupils are equal, round and reactive to light. Extraocular movements intact. Oropharynx moist without erythema or exudate. Neck: Supple. Normal ROM. Cardiovascular: Regular rate and rhythm. No murmurs, rubs or gallops. Chest symmetrical. Respiratory: Lungs clear to auscultation bilaterally. No wheezes, rales or rhonchi. Normal respiratory effort with no use of accessory muscles. Musculoskeletal: Normal ROM, no tenderness bilateral upper and lower extremities. Ambulating normally. Skin: [place], warm and dry without rashes or lesions. Neurological: Alert and oriented x3. CN II-XII grossly intact. Speech is fluent and answers are appropriate. No focal neuro deficits. Psychiatric: Normal mood and affect. No overt signs of depression or anxiety noted. Limitations: no limitations Course Vital Signs 02/02/18 02/02/18 02/03/18 21:57 23:20 00:31 Temperature 97.1 F L 100.4 F H Pulse Rate 122 H 100 88 Respiratory 18 14 14 Rate Blood Pressure 130/66 127/59 109/59 O2 Sat by Pulse 100 97 96 Oximetry Medical Decision Making - Medical Decision Making This is a 32-year-old male who presents to the emergency department with chief complaint of anxiety. Patient states that he would like to be evaluated for admission to the psychiatric unit. Patient states that he has been withdrawing from opiates and is going to be attending [facility] for substance abuse on February 10. Patient denied suicidal or homicidal ideation. Denies any visual or auditory hallucinations. He was evaluated by EPS and did not meet admission criteria. Patient was given Catapres, Zofran and Bentyl while in the emergency department. Patient was very unhappy that he was not going to be admitted. He stated that he had no where else to go. Myself and the EPS nurse then left the room. Patient then relayed to the nurse that "I should've been truthful from the beginning." Patient then continued to state that he did have suicidal and homicidal thoughts prior to arrival to the emergency department. Patient was reevaluated by EPS and stated that he really just needed a place to stay for the night and could not return home. Patient will be discharged to [facility] for a place to stay tonight. He is in no acute distress and vital signs are stable. Patient is in agreement. - Lab Data Lab Results 02/02/18 Range/Units 23:25 Urine Opiates Screen Not Detected (NotDetected) Ur Oxycodone Screen Not Detected (NotDetected) Urine Methadone Screen Not Detected (NotDetected) Ur Propoxyphene Screen Not Detected (NotDetected) Ur Barbiturates Screen Not Detected (NotDetected) U Tricyclic Antidepress Not Detected (NotDetected) Ur Phencyclidine Scrn Not Detected (NotDetected) Ur Amphetamines Screen Not Detected (NotDetected) U Methamphetamines Scrn Not Detected (NotDetected) U Benzodiazepines Scrn Not Detected (NotDetected) Urine Cocaine Screen Not Detected (NotDetected) U Marijuana (THC) Screen Detected H (NotDetected) Disposition Clinical Impression: Acute anxiety, Opioid use disorder, severe, dependence Disposition: HOME SELF-CARE Condition: Good Instructions: Anxiety (ED), Narcotic Abuse (ED) Additional Instructions: Please take medications as prescribed. Please follow up with primary care provider within 1-2 days. Return to emergency department if symptoms should worsen or any concerns arise. Prescriptions: Dicyclomine [Bentyl] 10 mg PO TID #15 capsule Ondansetron Odt [Zofran Odt] 4 mg PO Q8HR PRN #15 tab PRN Reason: Nausea Referrals: None,Stated [Primary Care Provider] - 1-2 days Time of Disposition: 03:41
[2018-02-02 23:23] VITALS: RESP 14
[2018-02-03 00:23] LABS: Amphetamine Screen,Urine Not Detected (NotDetected); Barbiturate Screen,Urine Not Detected (NotDetected); Benzodiazepines Screen,Urine Not Detected (NotDetected); Cocaine Screen,Urine Not Detected (NotDetected); Methadone Screen, Urine Not Detected (NotDetected); Opiate Screen,Urine Not Detected (NotDetected); Oxycodone Screen, Urine Not Detected (NotDetected); Phencyclidine Screen,Urine Not Detected (NotDetected); Tricyclic Antidepressant,Urine Not Detected (NotDetected); Urn Cannabinoid Scrn Detected (NotDetected)
[2018-02-03] MEDS ORDERED: DICYCLOMINE 10 MG CAP PO STA (01:04)
[2018-02-03] MEDS ORDERED: cloNIDine HCL 0.1 MG TAB PO STA (01:04)
[2018-02-03] MEDS ORDERED: ONDANSETRON ODT 4 MG TAB PO STA (01:04)
[2018-02-03 03:05] VITALS: BP 121/74; PULSE 87
[2018-02-03 03:28] VITALS: TEMP 98.3
== END 2018-02-03 03:56 | disposition home or self-care (01) ==
LOC: EC 21:48
DX: F41.9 Anxiety disorder, unspecified (principal); F11.20 Opioid dependence, uncomplicated; F17.200 Nicotine dependence, unspecified, uncomplicated; Z86.14 Personal history of Methicillin resistant Staphylococcus aureus infection; Z88.0 Allergy status to penicillin; Z88.1 Allergy status to other antibiotic agents; Z88.2 Allergy status to sulfonamides
CPT/HCPCS: 80306; 82075; 99284

== ENCOUNTER 2018-02-14 16:01 | Inpatient (IN) | payer OTHER ==
[2018-02-14] MEDS ORDERED: RX INFO: IV CONTRAST WAS GIVEN 1 EACH MISC MISCELLANE PRN ×2 (16:35→17:08)
[2018-02-14 16:51] LABS: Basophils % (A) 0 %; Eosinophils # (A) 0.2 k/uL (0-0.7); Eosinophils % (A) 1 %; HCT 39.6 % (39.0-53.0); HGB 13.2 gm/dL (13.0-17.5); Lymphocytes # (A) 1.9 k/uL (1.0-4.8); Lymphocytes % (A) 9 %; MCH 26.5 pg (25.0-35.0); MCHC 33.3 g/dL (31.0-37.0); MCV 79.6 fL (80.0-100.0); Mean Platelet Volume 6.7; Monocytes # (A) 0.8 k/uL (0-1.0); Monocytes % (A) 4 %; Neutrophils # (A) 18.8 k/uL (1.3-7.7); Neutrophils % (A) 86 %; Platelet Count 479 k/uL (150-450); RBC 4.97 m/uL (4.30-5.90); RDW 13.3 % (11.5-15.5); WBC 21.9 k/uL (3.8-10.6)
[2018-02-14 16:54] LABS: ALT 27 U/L (21-72); AST 38 U/L (17-59); Albumin 4.3 g/dL (3.5-5.0); Alkaline Phosphatase 91 U/L (38-126); Anion Gap 17 mmol/L; Blood Urea Nitrogen 29 mg/dL (9-20); Calcium 9.9 mg/dL (8.4-10.2); Carbon Dioxide 24 mmol/L (22-30); Chloride 101 mmol/L (98-107); Glucose 104 mg/dL (74-99); Potassium 5.3 mmol/L (3.5-5.1); Sodium 142 mmol/L (137-145); Total Bilirubin 0.6 mg/dL (0.2-1.3); Total Protein 8.5 g/dL (6.3-8.2)
[2018-02-14] MEDS ORDERED: KETOROLAC 30 MG/ML 1 ML VIAL IVP STA (17:10)
--- NOTE | 2018-02-14 17:32 | ED ---
ENT HPI - General Chief complaint: ENT Stated complaint: needs antibiotics Time Seen by Provider: 02/14/18 16:10 Source: patient, RN notes reviewed Mode of arrival: ambulatory Limitations: no limitations - History of Present Illness Initial comments: This is a 32-year-old male presents emergency Department chief complaint swelling left side of his neck. Patient states has been present for 1 week. States that he was at [facility] and was admitted for an abscess. Patient states that he was receiving vancomycin. Patient states that they're been drinking on Thursday the losses IV last night and states that they told him it was improving continuously since 1 oral antibiotics. Patient states that since being home and taking oral clindamycin symptoms are worsening he's Worsening pain and more difficulty swallowing but denies any chest pain or shortness of breath. Patient denies any prior infections like this really does state that he has a history of MRSA. Patient states that he is a former IV drug user states that he wanted to [place] one month ago and has been clean ever since. Patient denies headache, dizziness, - Related Data Previous Rx's Medication Instructions Recorded Melatonin 5 mg PO HS #30 tablet 01/28/18 Nicotine 14Mg/24Hr Patch [Habitrol] 1 patch TRANSDERM DAILY #12 patch 01/28/18 Venlafaxine HCl ER [Effexor XR] 150 mg PO DAILY #30 cap.er.24h 01/28/18 busPIRone HCl [Buspar] 10 mg PO BID #60 tab 01/28/18 Dicyclomine [Bentyl] 10 mg PO TID #15 capsule 02/03/18 Ondansetron Odt [Zofran Odt] 4 mg PO Q8HR PRN #15 tab 02/03/18 Allergies Allergy/AdvReac Type Severity Reaction Status Date / Time amoxicillin trihydrate Allergy Unknown Verified 02/14/18 16:06 [From Augmentin] potassium clavulanate Allergy Unknown Verified 02/14/18 16:06 [From Augmentin] sulfamethoxazole Allergy Rash/Hives Verified 02/14/18 16:06 [From Bactrim] trimethoprim [From Bactrim] Allergy Rash/Hives Verified 02/14/18 16:06 Review of Systems ROS Statement: Those systems with pertinent positive or pertinent negative responses have been documented in the HPI. ROS Other: All systems not noted in ROS Statement are negative. Past Medical History Past Medical History: No Reported History Additional Past Medical History / Comment(s): Hepatitis C, opiate dependance History of Any Multi-Drug Resistant Organisms: MRSA Date of last positivie culture/infection: 02/26/17 MDRO Source:: foot Past Surgical History: Orthopedic Surgery Additional Past Surgical History / Comment(s): Arthroscopy left shoulder Past Anesthesia/Blood Transfusion Reactions: No Reported Reaction Past Psychological History: Anxiety, Depression Smoking Status: Current every day smoker Past Alcohol Use History: Occasional Past Drug Use History: Marijuana, Opiates, Prescription Drug Abuse - Past Family History Mother Additional Family Medical History / Comment(s): Manic Depressive, Addiction Hx Father Family Medical History: Seizure Disorder Additional Family Medical History / Comment(s): Anxiety Daughter(s) Family Medical History: No Reported History General Exam Limitations: no limitations General appearance: alert, in no apparent distress Head exam: Present: atraumatic, normocephalic, normal inspection Eye exam: Present: normal appearance, PERRL, EOMI. Absent: scleral icterus, conjunctival injection, periorbital swelling ENT exam: Present: normal oropharynx, mucous membranes moist, TM's normal bilaterally, normal external ear exam. Absent: normal exam Neck exam: Present: tenderness, full ROM, lymphadenopathy. Absent: normal inspection (Large area of swelling on the left side of approximately 3 cm tenderness with palpation), meningismus Respiratory exam: Present: normal lung sounds bilaterally. Absent: respiratory distress, wheezes, rales, rhonchi, stridor Cardiovascular Exam: Present: regular rate, normal rhythm, normal heart sounds. Absent: systolic murmur, diastolic murmur, rubs, gallop, clicks Skin exam: Present: warm, dry, intact, normal color. Absent: rash Course Vital Signs 02/14/18 02/14/18 02/14/18 16:04 17:30 18:42 Temperature 98.3 F 100.2 F H 98.8 F Pulse Rate 89 89 88 Respiratory 20 18 22 Rate Blood Pressure 137/65 110/62 137/72 O2 Sat by Pulse 99 100 99 Oximetry Medical Decision Making - Lab Data Result diagrams: 02/14/18 16:35 02/14/18 16:35 Lab Results 02/14/18 02/14/18 02/14/18 Range/Units 16:35 16:35 16:35 WBC 21.9 H (3.8-10.6) k/uL RBC 4.97 (4.30-5.90) m/uL Hgb 13.2 (13.0-17.5) gm/dL Hct 39.6 (39.0-53.0) % MCV 79.6 L (80.0-100.0) fL MCH 26.5 (25.0-35.0) pg MCHC 33.3 (31.0-37.0) g/dL RDW 13.3 (11.5-15.5) % Plt Count 479 H (150-450) k/uL Neutrophils % 86 % Lymphocytes % 9 % Monocytes % 4 % Eosinophils % 1 % Basophils % 0 % Neutrophils # 18.8 H (1.3-7.7) k/uL Lymphocytes # 1.9 (1.0-4.8) k/uL Monocytes # 0.8 (0-1.0) k/uL Eosinophils # 0.2 (0-0.7) k/uL Basophils # 0.0 (0-0.2) k/uL Sodium 142 (137-145) mmol/L Potassium 5.3 H (3.5-5.1) mmol/L Chloride 101 (98-107) mmol/L Carbon Dioxide 24 (22-30) mmol/L Anion Gap 17 mmol/L BUN 29 H (9-20) mg/dL Creatinine 0.60 L (0.66-1.25) mg/dL Est GFR (CKD-EPI)AfAm >90 (>60 ml/min/1.73 sqM) Est GFR (CKD-EPI)NonAf >90 (>60 ml/min/1.73 sqM) Glucose 104 H (74-99) mg/dL Plasma Lactic Acid Petey 1.4 (0.7-2.0) mmol/L Calcium 9.9 (8.4-10.2) mg/dL Total Bilirubin 0.6 (0.2-1.3) mg/dL AST 38 (17-59) U/L ALT 27 (21-72) U/L Alkaline Phosphatase 91 (38-126) U/L Total Protein 8.5 H (6.3-8.2) g/dL Albumin 4.3 (3.5-5.0) g/dL Disposition Clinical Impression: Neck abscess, Failure of outpatient treatment, Leukocytosis Disposition: ADMITTED IP TO THIS HOSP Condition: Stable Referrals: None,Stated [Primary Care Provider] - 1-2 days
--- NOTE | 2018-02-14 17:49 | CT ---
EXAMINATION TYPE: CT soft tissue neck w con DATE OF EXAM: 02/14/2018 COMPARISON: NONE HISTORY: 37-year-old male Left side neck swelling and abscess. TECHNIQUE: Contiguous axial scanning of the soft tissue neck performed with IV Contrast, patient inje cted with 100ml mL of Isovue 300. Coronal/sagittal reconstructions performed. CT DLP: 399.7 mGycm Automated exposure control for dose reduction was used. FINDINGS: The thyroid, submandibular glands appear satisfactory. Atrophic parotid glands. Rightward nasal septal deviation. Visualized paranasal sinuses and mastoid air cells are clear. Visua lized orbits and globes are clear. The nasopharynx is clear. Possible tiny 6 mm fluid collection in the left palatine tonsillar region, and axial image 76. There is a complex irregular mass with a peripheral enhancement measuring 3.1 cm wide, 3.3 cm AP, and 4.4 cm caudal, axial image 72 and coronal image 30. There may be adjacent borderline enlarged upper cervical lymph node measuring 1.2 cm, this may involve the anterior margin of the left sternocleidoma stoid. There is a some asymmetric thickening of this muscle just below the level of the thyroid carti lokesh. No prevertebral soft tissue swelling. Normal epiglottis. IMPRESSION: COMPLEX IRREGULAR MASS WITH CENTRAL LOW DENSITY AND PERIPHERAL ENHANCEMENT MEASURING UP TO 4.4 CM ON THE LEFT SIDE OF THE NECK POSSIBLY INVOLVING THE ANTERIOR MARGIN OF THE LEFT STERNOCLEIDOMASTOID. THE ETIOLOGY IS UNCERTAIN. SOME DIFFERENTIAL CONSIDERATIONS INCLUDE NECROTIC LYMPHADENOPATHY OR NEOPLASM , ABSCESS, AND INFECTED BRANCHIAL CLEFT CYST.
[2018-02-14] MEDS ORDERED: CEFEPIME 2 GM in SODIUM CHLORIDE 0.9% 50 ML IVPB STA (18:44)
[2018-02-14] MEDS ORDERED: VANCOMYCIN IV PER PHARMACY 1 EACH MISC MISCELLANE PRN (18:44)
[2018-02-14] MEDS ORDERED: NALOXONE 0.4 MG/ML 1 ML VIAL IV PRN (18:46)
[2018-02-14] MEDS ORDERED: ONDANSETRON 4 MG/2 ML VIAL IVP PRN (18:46)
[2018-02-14] MEDS ORDERED: ACETAMINOPHEN TAB 325 MG TAB PO PRN (18:46)
[2018-02-14] MEDS ORDERED: VANCOMYCIN 1,250 MG in SODIUM CHLORIDE 0.9% 250 ML IVPB STA (18:46)
--- NOTE | 2018-02-14 22:40 | P.HPIM ---
History of Present Illness H&P Date: 02/14/18 Chief Complaint: Left neck pain This is a 32-year-old male presents emergency Department chief complaint swelling left side of his neck. Patient states has been present for 1 week. States that he was at [facility] and was admitted for an abscess this past Thursday and was discharged yesterday. Patient states that he was receiving initially receiving IV vancomycin and IV dexamethasone. Patient states that he lost IV access and that his regimen was changed to oral antibiotics as it was improving. Patient states that since being home and taking oral clindamycin and Levaquin, symptoms are worsening he's worsening pain and swelling with more difficulty swallowing but denies any chest pain or shortness of breath. Patient denies any prior infections like this really does state that he has a history of MRSA. Patient states that he is a former IV drug user states that he wanted to [place] one month ago and has been clean ever since. Patient denies headache, dizziness. In the ER he had a CT of his neck indicating a 4.4 cm irregular mass on the left anterior margin of the sternocleidomastoid suggested as abscess versus necrotic lymphadenopathy versus neoplasm or infected branchial cleft cyst. He was noted to have a leukocytosis of 21 and a low-grade fever and was recommended for admission Review of Systems All other 14 (negative except for HPI Past Medical History Past Medical History: No Reported History Additional Past Medical History / Comment(s): Hepatitis C, opiate dependance History of Any Multi-Drug Resistant Organisms: MRSA Date of last positivie culture/infection: 02/26/17 MDRO Source:: foot Past Surgical History: Orthopedic Surgery Additional Past Surgical History / Comment(s): Arthroscopy left shoulder Past Anesthesia/Blood Transfusion Reactions: No Reported Reaction Past Psychological History: Anxiety, Depression Smoking Status: Current every day smoker Past Alcohol Use History: Occasional Past Drug Use History: Marijuana, Opiates, Prescription Drug Abuse - Past Family History Mother Additional Family Medical History / Comment(s): Manic Depressive, Addiction Hx Father Family Medical History: Seizure Disorder Additional Family Medical History / Comment(s): Anxiety Daughter(s) Family Medical History: No Reported History Medications and Allergies Home Medications Medication Instructions Recorded Confirmed Type Melatonin 5 mg PO HS #30 tablet 01/28/18 02/02/18 Rx Nicotine 14Mg/24Hr Patch [Habitrol] 1 patch TRANSDERM DAILY #12 patch 01/28/18 02/02/18 Rx Venlafaxine HCl ER [Effexor XR] 150 mg PO DAILY #30 cap.er.24h 01/28/18 Rx busPIRone HCl [Buspar] 10 mg PO BID #60 tab 01/28/18 02/02/18 Rx Dicyclomine [Bentyl] 10 mg PO TID #15 capsule 02/03/18 Rx Ondansetron Odt [Zofran Odt] 4 mg PO Q8HR PRN #15 tab 02/03/18 Rx Allergies Allergy/AdvReac Type Severity Reaction Status Date / Time amoxicillin trihydrate Allergy Unknown Verified 02/14/18 16:06 [From Augmentin] potassium clavulanate Allergy Unknown Verified 02/14/18 16:06 [From Augmentin] sulfamethoxazole Allergy Rash/Hives Verified 02/14/18 16:06 [From Bactrim] trimethoprim [From Bactrim] Allergy Rash/Hives Verified 02/14/18 16:06 Physical Exam Vitals: Vital Signs Temp Pulse Resp BP Pulse Ox 02/14/18 18:42 98.8 F 88 22 137/72 99 02/14/18 17:30 100.2 F H 89 18 110/62 100 02/14/18 16:04 98.3 F 89 20 137/65 99 Intake and Output 02/14/18 02/14/18 02/14/18 06:59 14:59 22:59 Other: Weight 63.503 kg Constitutional: No acute distress, conversant, pleasant Eyes: Anicteric sclerae, moist conjunctiva, no lid-lag, PERRLA ENMT: NC/AT,Oropharynx clear, no erythema, exudates, Neck:Supple, no masses, or JVD, tenderness, full ROM, lymphadenopathy. Absent: normal inspection (Large area of swelling on the left side of approximately 3 cm tenderness with palpation), meningismus Lungs: Clear to auscultation, Clear to percussion, Normal respiratory effort, no accessory muscle use Cardiovascular: Heart regular in rate and rhythm, No murmurs, gallops, or rubs no peripheral edema Abdominal: Soft Nontender, nom distended, no guarding, no rebound or rigidity, Normoactive bowel sounds No hepatomegaly, No splenomegaly, No palpable mass No abdominal wall hernia noted Skin: Normal temperature, tone, texture, turgor, No induration No subcutaneous nodules, No rash, lesions, No ulcers Extremities:No digital cyanosis No clubbing, Pedal pulses intact and symmetrical Radial pulses intact and symmetrical Normal gait and station, No calf tenderness Psychiatric: Alert and oriented to person, place and time, Appropriate affect Intact judgement Neuro: Muscles Strength 5/5 in all 4 extremities, Sensation to light touch grossly present throughout, Cranial nerves II-XII grossly intact. No focal sensory deficits Results CBC & Chem 7: 02/14/18 16:35 02/14/18 16:35 Labs: Abnormal Lab Results - Last 24 Hours (Table) 02/14/18 02/14/18 Range/Units 16:35 16:35 WBC 21.9 H (3.8-10.6) k/uL MCV 79.6 L (80.0-100.0) fL Plt Count 479 H (150-450) k/uL Neutrophils # 18.8 H (1.3-7.7) k/uL Potassium 5.3 H (3.5-5.1) mmol/L BUN 29 H (9-20) mg/dL Creatinine 0.60 L (0.66-1.25) mg/dL Glucose 104 H (74-99) mg/dL Total Protein 8.5 H (6.3-8.2) g/dL Assessment and Plan (1) Sepsis Current Visit: Yes Status: Acute Code(s): A41.9 - SEPSIS, UNSPECIFIED ORGANISM SNOMED Code(s): 84319044 (2) Neck abscess Current Visit: Yes Status: Acute Code(s): L02.11 - CUTANEOUS ABSCESS OF NECK SNOMED Code(s): 6590637 (3) Anxiety Current Visit: No Status: Acute Priority: Medium Code(s): F41.9 - ANXIETY DISORDER, UNSPECIFIED SNOMED Code(s): 61307913 (4) Major depressive disorder, recurrent severe without psychotic features Current Visit: No Status: Acute Priority: High Code(s): F33.2 - MAJOR DEPRESSV DISORDER, RECURRENT SEVERE W/O PSYCH FEATURES SNOMED Code(s): 37747496 (5) Opioid use disorder, severe, dependence Current Visit: No Status: Acute Priority: High Code(s): F11.20 - OPIOID DEPENDENCE, UNCOMPLICATED SNOMED Code(s): 61113424 Plan: The patient is admitted anticipate a greater than 2 midnight stay for sepsis secondary to left anterior sternocleidomastoid abscess after failing outpatient therapy after being recently discharged from [facility] yesterday, the patient is started on empiric IV antibiotics with vancomycin pending blood and urine cultures with general surgery/ENT consult to for I&D and obtaining wound cultures so we can direct antibiotic regimen. Patient is continued on IV antiemetics and IV fluids. The patient is continued on his maintenance medications for his depression and anxiety with supportive treatment with Tylenol for his fevers. Place on DVT prophylaxis with SCDs and Lovenox. Continue to monitor his clinical course
[2018-02-14] MEDS: KETOROLAC 30 MG/ML 1 ML VIAL IVP PRN (23:14)
[2018-02-14] MEDS: busPIRone HCl 10 MG TAB PO SCH (23:50)
[2018-02-14] MEDS: NICOTINE 14MG/24HR PATCH TRANSDERM SCH (23:50)
[2018-02-14] MEDS: DICYCLOMINE 10 MG CAP PO SCH (23:51)
[2018-02-14] MEDS: MELATONIN 5 MG TABLET PO SCH (23:51)
[2018-02-15] MEDS ORDERED: MD COMMUNICATION TO PHARMACY 1 EACH MISC PO ONE (00:53)
[2018-02-15] MEDS: SODIUM CHLORIDE 0.9% 1,000 ML IV SCH ×3 (04:56→22:37)
[2018-02-15] MEDS: VANCOMYCIN 1,250 MG in SODIUM CHLORIDE 0.9% 250 ML IVPB SCH ×2 (04:56→13:13)
[2018-02-15] MEDS: HYDROcodone/APAP 7.5-325MG 1 EACH TAB PO PRN ×4 (05:04→23:05)
[2018-02-15] MEDS: KETOROLAC 30 MG/ML 1 ML VIAL IVP PRN ×3 (08:13→20:25)
[2018-02-15] MEDS: NICOTINE 14MG/24HR PATCH TRANSDERM SCH (08:15)
[2018-02-15] MEDS: DICYCLOMINE 10 MG CAP PO SCH ×3 (08:15→20:25)
[2018-02-15] MEDS: busPIRone HCl 10 MG TAB PO SCH ×2 (08:15→20:25)
[2018-02-15] MEDS: ENOXAPARIN 40 MG/0.4 ML SYRINGE SQ SCH (08:15)
[2018-02-15] MEDS: VENLAFAXINE HCL ER 150 MG CAP PO SCH (08:16)
[2018-02-15 08:37] LABS: Appearance,Urine Clear (Clear); Bilirubin,Urine Negative (Negative); Blood,Urine Negative (Negative); Color,Urine Yellow; Glucose,Urine (UA) Negative (Negative); Ketones,Urine Negative (Negative); Leukocyte Esterase,Urine Negative (Negative); Nitrite,Urine Negative (Negative); PH, Urine 6.5 (5.0-8.0); Protein,Urine Negative (Negative); Specific Gravity,Urine 1.013 (1.001-1.035); Urobilinogen,Urine <2.0 mg/dL (<2.0)
[2018-02-15] MEDS ORDERED: VANCOMYCIN IV PER PHARMACY 1 EACH MISC MISCELLANE PRN (12:59)
[2018-02-15] MEDS ORDERED: CLINDAMYCIN 600 MG in DEXTROSE 5% IN WATER 50 ML IVPB SCH ×4 (13:30→23:00)
--- NOTE | 2018-02-15 13:31 | P.PN ---
Subjective Progress Note Date: 02/15/18 Principal diagnosis: Patient is seen in follow-up for left sided neck swelling Patient seen and examined today, reports no new symptoms. Denies any trouble swallowing or breathing. Pain is well controlled. Objective - Vital Signs Vital signs: Vital Signs Temp 99.3 F 02/15/18 06:00 Pulse 83 02/15/18 08:00 Resp 20 02/15/18 08:00 BP 127/80 02/15/18 06:00 Pulse Ox 97 02/15/18 06:00 Intake & Output 02/14/18 02/15/18 02/15/18 18:59 06:59 18:59 Intake Total 600 Output Total 1000 Balance 600 -1000 Weight 63.503 kg 60.101 kg Intake: Oral 600 Output: Urine 1000 Other: Voiding Method Toilet Toilet # Voids 1 1 - Exam Constitutional: vital signs stable, Not in acute distress, pleasant, conversant ENMT: Oral exam revealed no palpable masses, uvula is midline, tonsils are unremarkable, no erythema or exudate Neck: Supple, palpable mass over the left side of the neck tender to palpation, with overlying and surrounding erythema, masses attached to the underlying structure now moving with swallowing, no thyromegally, no JVD, no carotid bruits Lungs: Clear to auscultation bilaterally, clear to percussion, normal respiratory effort Cardiovascular: Regular rate and rhythm, no murmurs, no gallops, no rubs, no peripheral edema Gastrointestinal: Soft, no tenderness to palpation, no palpable hepatosplenomegally, bowel sounds positive Extremities: No digital cyanosis or clubbing, peripheral pulses palpable and equal over bilateral radial arteries and dorsalis pedis artery, no calf muscle tenderness Psych: Alert, oriented to place, person and time, appropriate affect, intact judgment - Labs CBC & Chem 7: 02/14/18 16:35 02/14/18 16:35 Labs: Abnormal Lab Results - Last 24 Hours (Table) 02/14/18 02/14/18 Range/Units 16:35 16:35 WBC 21.9 H (3.8-10.6) k/uL MCV 79.6 L (80.0-100.0) fL Plt Count 479 H (150-450) k/uL Neutrophils # 18.8 H (1.3-7.7) k/uL Potassium 5.3 H (3.5-5.1) mmol/L BUN 29 H (9-20) mg/dL Creatinine 0.60 L (0.66-1.25) mg/dL Glucose 104 H (74-99) mg/dL Total Protein 8.5 H (6.3-8.2) g/dL Assessment and Plan Assessment: 32-year-old male with history of IV drug abuse, presented to the hospital with worsening swelling of his left neck. He reports that this started one week ago for which she went to a hospital treated with IV antibiotics and then released on by mouth antibiotics however one day later he notices that the mass has doubled in size and decided to come back to the hospital thinking that he might failed antibiotic by mouth therapy. CT of his neck indicating a 4.4 cm irregular mass on the left anterior margin of the sternocleidomastoid suggested as abscess as he had high white blood count and fever. Awaiting general surgery evaluation for possible drainage. Patient is On IV vancomycin for MRSA coverage due to his history of MRSA, and clindamycin for an aerobic coverage cultures are pending. Due to patient history of IV drug abuse up until a month ago, further screening for HIV and hepatitis is ordered patient verbalized agreement Today he denies any trouble with breathing or swallowing. Denies any chest pain or trouble breathing. Plan: #Sepsis secondary to skin cellulitis and abscess of the left side of the neck IV vancomycin and clindamycin Cultures pending General surgery evaluation for possible I&D ID consult #Leukocytosis Secondary to above #History of IV drug abuse Check HIV and hepatitis panel Patient last use was one month ago #DVT prophylaxis Heparin subcu 3 times a day #Mild hyperkalemia Recheck potassium level for further recommendations
[2018-02-15 13:57] LABS: ALT 24 U/L (21-72); AST 20 U/L (17-59); Albumin 3.9 g/dL (3.5-5.0); Alkaline Phosphatase 93 U/L (38-126); Anion Gap 16 mmol/L; Blood Urea Nitrogen 18 mg/dL (9-20); Calcium 9.5 mg/dL (8.4-10.2); Carbon Dioxide 21 mmol/L (22-30); Chloride 104 mmol/L (98-107); Glucose 199 mg/dL (74-99); Potassium 3.9 mmol/L (3.5-5.1); Sodium 141 mmol/L (137-145); Total Bilirubin 0.5 mg/dL (0.2-1.3); Total Protein 7.5 g/dL (6.3-8.2)
[2018-02-15 14:20] VITALS: BMI 17.9
--- NOTE | 2018-02-15 14:40 | P.GSCN ---
History of Present Illness Consult date: 02/15/18 Reason for Consult: Left side neck swelling History of present illness: 32-year-old male who developed left-sided neck swelling is being seen at the request of the attending for a surgical eval for possible incision and drainage of the left neck mass states that he was at [facility] several days ago to be evaluated for left-sided neck swelling. He states that they did start him on IV vancomycin and clindamycin he was there for several days. Had trouble getting his IV restarted after it infiltrated "they poked me 31 times" he stated that he was discharged on an oral antibiotic clindamycin stated that he picked up the prescriptions decided to come to this emergency room because there was no improvement. Patient denies prior episodes. Patient is a former IV drug user. Currently states he does not use any IV drugs. Apparently had gone to [facility] a month ago has not used since then additionally patient has a prior history of drug use marijuana, prescription drug abuse, and opiates. Currently is sitting up in bed talkative there is no trouble noted in swallowing no respiratory distress patient's pain is controlled swelling on the left side of the neck according to the patient is unchanged CAT scan obtained of the neck in summary the report indicated a complex irregular mass with central low density measuring 4.4 cm on the left side of the neck involving the anterior margin of the left sternocleidomastoid Review of Systems Essentially unremarkable except as mentioned in the present illness Past Medical History Past Medical History: No Reported History Additional Past Medical History / Comment(s): Hepatitis C, opiate dependance History of Any Multi-Drug Resistant Organisms: MRSA Year Discovered:: 02/26/17 MDRO Source:: foot Past Surgical History: Orthopedic Surgery Additional Past Surgical History / Comment(s): Arthroscopy left shoulder Past Anesthesia/Blood Transfusion Reactions: No Reported Reaction Past Psychological History: Anxiety, Depression Smoking Status: Current every day smoker Past Alcohol Use History: Occasional Past Drug Use History: Marijuana, Opiates, Prescription Drug Abuse - Past Family History Mother Additional Family Medical History / Comment(s): Manic Depressive, Addiction Hx Father Family Medical History: Seizure Disorder Additional Family Medical History / Comment(s): Anxiety Daughter(s) Family Medical History: No Reported History Medications and Allergies Home Medications Medication Instructions Recorded Confirmed Type Venlafaxine HCl ER [Effexor XR] 150 mg PO DAILY #30 cap.er.24h 01/28/18 Rx busPIRone HCl [Buspar] 10 mg PO BID #60 tab 01/28/18 02/15/18 Rx Bqesqdb-Skuc-Eeun [id number] 2 tab PO Q6H PRN 02/15/18 02/15/18 History [Excedrin] Allergies Allergy/AdvReac Type Severity Reaction Status Date / Time amoxicillin trihydrate Allergy Unknown Verified 02/15/18 07:57 [From Augmentin] potassium clavulanate Allergy Unknown Verified 02/15/18 07:57 [From Augmentin] sulfamethoxazole Allergy Rash/Hives Verified 02/15/18 07:57 [From Bactrim] trimethoprim [From Bactrim] Allergy Rash/Hives Verified 02/15/18 07:57 Surgical - Exam Vital Signs Temp Pulse Resp BP Pulse Ox 98.3 F 89 20 137/65 99 02/14/18 16:04 02/14/18 16:04 02/14/18 16:04 02/14/18 16:04 02/14/18 16:04 GENERAL APPEARANCE: 32-year-old male patient is alert, oriented, in no acute distress. Talkative pleasant VITAL SIGNS: Reviewed HEENT: Head is normocephalic and atraumatic. Pupils are equal and reactive. The nares are patent. Oropharynx is clear without lesions. NECK: Supple without lymphadenopathy. Traches midline. palpable firm mass over the left side of the neck tender surrounding area erythema noted HEART: S1, S2. Regular rate and rhythm. No murmur noted denying chest pain LUNGS: No crackles or wheezes are heard. Adequate air movement bilaterally adequate air movement ABDOMEN: Soft, nontender, nondistended with good bowel sounds. No peritoneal signs. No palpable organomegaly or masses. EXTREMITIES: Normal skin color and turgor. No cyanosis, rash, ulceration, clubbing or edema. Radial pedal pulses are 2/4 bilaterally. NEUROLOGICAL: No focal deficits. Strength and sensation are grossly intact. Results Impression Present on admission sepsis suspect due to cellulitis abscess left side of the neck Leukocytosis present on admission History of hepatitis C History of IV drug abuse patient reports last used one month prior Present on admission mild hyperkalemia improved Failed outpatient treatment for left side neck possible abscess Plan Await ENTs eval Await infectious disease Dr. Cat recommendations antibiotics Reinforce smoking cessation IV fluids for hydration Pain control Further surgical recommendations pending Surgical consult note dictated for Dr. Ennis The above impression and plan of care have been discussed and directed by signing physician. Roya Camara nurse practitioner acting as scribe for signing physician. - Labs 02/14/18 16:35 02/15/18 13:25 Abnormal Lab Results - Last 24 Hours (Table) 02/14/18 02/14/18 02/15/18 Range/Units 16:35 16:35 13:25 WBC 21.9 H (3.8-10.6) k/uL MCV 79.6 L (80.0-100.0) fL Plt Count 479 H (150-450) k/uL Neutrophils # 18.8 H (1.3-7.7) k/uL Potassium 5.3 H (3.5-5.1) mmol/L Carbon Dioxide 21 L (22-30) mmol/L BUN 29 H (9-20) mg/dL Creatinine 0.60 L 0.57 L (0.66-1.25) mg/dL Glucose 104 H 199 H (74-99) mg/dL Total Protein 8.5 H (6.3-8.2) g/dL Diabetes panel 02/14/18 02/15/18 Range/Units 16:35 13:25 Sodium 142 141 (137-145) mmol/L Potassium 5.3 H 3.9 (3.5-5.1) mmol/L Chloride 101 104 (98-107) mmol/L Carbon Dioxide 24 21 L (22-30) mmol/L BUN 29 H 18 (9-20) mg/dL Creatinine 0.60 L 0.57 L (0.66-1.25) mg/dL Glucose 104 H 199 H (74-99) mg/dL Calcium 9.9 9.5 (8.4-10.2) mg/dL AST 38 20 (17-59) U/L ALT 27 24 (21-72) U/L Alkaline Phosphatase 91 93 (38-126) U/L Total Protein 8.5 H 7.5 (6.3-8.2) g/dL Albumin 4.3 3.9 (3.5-5.0) g/dL Calcium panel 02/14/18 02/15/18 Range/Units 16:35 13:25 Calcium 9.9 9.5 (8.4-10.2) mg/dL Albumin 4.3 3.9 (3.5-5.0) g/dL Pituitary panel 02/14/18 02/15/18 Range/Units 16:35 13:25 Sodium 142 141 (137-145) mmol/L Potassium 5.3 H 3.9 (3.5-5.1) mmol/L Chloride 101 104 (98-107) mmol/L Carbon Dioxide 24 21 L (22-30) mmol/L BUN 29 H 18 (9-20) mg/dL Creatinine 0.60 L 0.57 L (0.66-1.25) mg/dL Glucose 104 H 199 H (74-99) mg/dL Calcium 9.9 9.5 (8.4-10.2) mg/dL Adrenal panel 02/14/18 02/15/18 Range/Units 16:35 13:25 Sodium 142 141 (137-145) mmol/L Potassium 5.3 H 3.9 (3.5-5.1) mmol/L Chloride 101 104 (98-107) mmol/L Carbon Dioxide 24 21 L (22-30) mmol/L BUN 29 H 18 (9-20) mg/dL Creatinine 0.60 L 0.57 L (0.66-1.25) mg/dL Glucose 104 H 199 H (74-99) mg/dL Calcium 9.9 9.5 (8.4-10.2) mg/dL Total Bilirubin 0.6 0.5 (0.2-1.3) mg/dL AST 38 20 (17-59) U/L ALT 27 24 (21-72) U/L Alkaline Phosphatase 91 93 (38-126) U/L Total Protein 8.5 H 7.5 (6.3-8.2) g/dL Albumin 4.3 3.9 (3.5-5.0) g/dL
[2018-02-15] MEDS: ERTAPENEM 1 GM in SODIUM CHLORIDE 0.9% 50 ML IVPB SCH (17:52)
[2018-02-15] MEDS: DAPTOmycin 500 MG in SODIUM CHLORIDE 0.9% 50 ML IV SCH (18:20)
--- NOTE | 2018-02-15 19:19 | P.GSCN ---
History of Present Illness Consult date: 02/15/18 Reason for Consult: Left neck swelling Requesting physician: Dinh Mann History of present illness: This patient is a 32-year-old white male who presented to the emergency room with significant left neck swelling. He tells me that this is been a problem for about 4-5 days and has gotten progressively worse. Patient is a former IV drug user. He tells me he has not used IV drugs in 4 weeks. This left neck swelling is quite painful and a CAT scan was performed which shows a complex mass. Patient has an elevated white count and abscess is suspect with associated cellulitis. This is located in the left neck just in front of the sternocleidomastoid muscle. It is quite tender to touch. It seems to be worsening prior to his admission. Review of Systems - Constitutional Reports anorexia - EENT EENT Comment(s): Patient is a large 4 cm complex swelling to the left neck and from the sternocleidomastoid muscle below the angle of the mandible. Quite tender swollen firm Eyes: bilateral as per HPI Ears, nose, mouth and throat: Reports ant. neck pain - Cardiovascular Denies chest pain - Respiratory Denies congestion - Gastrointestinal Denies abdominal pain - Genitourinary Denies flank pain - Musculoskeletal Denies frequent falls - Integumentary Denies brittle nails - Neurological Denies change in smell/taste - Psychiatric Reports change in appetite - Endocrine Denies excessive sweating - Allergic/Immunologic Denies allergic rhinitis Past Medical History Past Medical History: No Reported History Additional Past Medical History / Comment(s): Hepatitis C, opiate dependance History of Any Multi-Drug Resistant Organisms: MRSA Year Discovered:: 02/26/17 MDRO Source:: foot Past Surgical History: Orthopedic Surgery Additional Past Surgical History / Comment(s): Arthroscopy left shoulder Past Anesthesia/Blood Transfusion Reactions: No Reported Reaction Past Psychological History: Anxiety, Depression Smoking Status: Current every day smoker Past Alcohol Use History: Occasional Past Drug Use History: Marijuana, Opiates, Prescription Drug Abuse - Past Family History Mother Additional Family Medical History / Comment(s): Manic Depressive, Addiction Hx Father Family Medical History: Seizure Disorder Additional Family Medical History / Comment(s): Anxiety Daughter(s) Family Medical History: No Reported History Medications and Allergies Home Medications Medication Instructions Recorded Confirmed Type Venlafaxine HCl ER [Effexor XR] 150 mg PO DAILY #30 cap.er.24h 01/28/18 Rx busPIRone HCl [Buspar] 10 mg PO BID #60 tab 01/28/18 02/15/18 Rx Aelxagt-Nise-Dacd [id number] 2 tab PO Q6H PRN 02/15/18 02/15/18 History [Excedrin] Allergies Allergy/AdvReac Type Severity Reaction Status Date / Time amoxicillin trihydrate Allergy Unknown Verified 02/15/18 07:57 [From Augmentin] potassium clavulanate Allergy Unknown Verified 02/15/18 07:57 [From Augmentin] sulfamethoxazole Allergy Rash/Hives Verified 02/15/18 07:57 [From Bactrim] trimethoprim [From Bactrim] Allergy Rash/Hives Verified 02/15/18 07:57 Surgical - Exam Osteopathic Statement: *. No significant issues noted on an osteopathic structural exam other than those noted in the History and Physical/Consult. Vital Signs Temp Pulse Resp BP Pulse Ox 98.3 F 89 20 137/65 99 02/14/18 16:04 02/14/18 16:04 02/14/18 16:04 02/14/18 16:04 02/14/18 16:04 - General well developed, well nourished, no distress - Eyes PERRL, normal ocular movement - ENT Left neck is a large 4 cm firm bulging-type mass in front of the sternocleidomastoid muscle below the mandible normal pinna, normal nares, normal mucosa, no hearing loss, no congestion - Neck Complex left neck mass - Cardiovascular Rhythm: regular - Abdomen Abdomen: soft, no tender - Integumentary no rash, no growths - Neurologic normal coordination, normal sensation - Musculoskeletal normal gait, normal posture - Psychiatric oriented to time, oriented to person, oriented to place, speech is normal, memory intact Results - Labs 02/14/18 16:35 02/15/18 13:25 Abnormal Lab Results - Last 24 Hours (Table) 02/15/18 Range/Units 13:25 Carbon Dioxide 21 L (22-30) mmol/L Creatinine 0.57 L (0.66-1.25) mg/dL Glucose 199 H (74-99) mg/dL Microbiology - Last 24 Hours (Table) 02/14/18 16:35 Blood Culture - Preliminary Blood No Growth after 24 hours Diabetes panel 02/15/18 Range/Units 13:25 Sodium 141 (137-145) mmol/L Potassium 3.9 (3.5-5.1) mmol/L Chloride 104 (98-107) mmol/L Carbon Dioxide 21 L (22-30) mmol/L BUN 18 (9-20) mg/dL Creatinine 0.57 L (0.66-1.25) mg/dL Glucose 199 H (74-99) mg/dL Calcium 9.5 (8.4-10.2) mg/dL AST 20 (17-59) U/L ALT 24 (21-72) U/L Alkaline Phosphatase 93 (38-126) U/L Total Protein 7.5 (6.3-8.2) g/dL Albumin 3.9 (3.5-5.0) g/dL Calcium panel 02/15/18 Range/Units 13:25 Calcium 9.5 (8.4-10.2) mg/dL Albumin 3.9 (3.5-5.0) g/dL Pituitary panel 02/15/18 Range/Units 13:25 Sodium 141 (137-145) mmol/L Potassium 3.9 (3.5-5.1) mmol/L Chloride 104 (98-107) mmol/L Carbon Dioxide 21 L (22-30) mmol/L BUN 18 (9-20) mg/dL Creatinine 0.57 L (0.66-1.25) mg/dL Glucose 199 H (74-99) mg/dL Calcium 9.5 (8.4-10.2) mg/dL Adrenal panel 02/15/18 Range/Units 13:25 Sodium 141 (137-145) mmol/L Potassium 3.9 (3.5-5.1) mmol/L Chloride 104 (98-107) mmol/L Carbon Dioxide 21 L (22-30) mmol/L BUN 18 (9-20) mg/dL Creatinine 0.57 L (0.66-1.25) mg/dL Glucose 199 H (74-99) mg/dL Calcium 9.5 (8.4-10.2) mg/dL Total Bilirubin 0.5 (0.2-1.3) mg/dL AST 20 (17-59) U/L ALT 24 (21-72) U/L Alkaline Phosphatase 93 (38-126) U/L Total Protein 7.5 (6.3-8.2) g/dL Albumin 3.9 (3.5-5.0) g/dL Assessment and Plan (1) Neck abscess Current Visit: Yes Status: Acute Code(s): L02.11 - CUTANEOUS ABSCESS OF NECK SNOMED Code(s): 5308972 Plan: This patient has a large 4 cm left neck abscess and the patient would like me to proceed forward with incision and drainage. Therefore the patient underwent a needle aspiration for culture and followed with a drainage of this left neck abscess. We were able to produce a tremendous amount of foul-smelling purulence. A culture and sensitivity will be performed and the patient has an absorbable gauze to absorb any further drainage from this site. The patient tolerated this well. Due to the fact that this abscess is now drained and infectious disease will be handling the antibiotic choices, my role with this patient will and. I am happy to reconsult if my services are needed. I will no longer following this patient now that this abscess has been drained. Thank you Time with Patient: Greater than 30
--- NOTE | 2018-02-15 19:23 | P.OP ---
Date of Procedure: 02/15/18 Preoperative Diagnosis: Left neck abscess Postoperative Diagnosis: Same Procedure(s) Performed: Incision and drainage of a large 4 cm left neck abscess, complex Anesthesia: local Surgeon: Mayank Jang Estimated Blood Loss (ml): 5 Pathology: other (Culture and sensitivity sent) Condition: stable Disposition: PACU Indications for Procedure: Patient has developed a large 4 cm left neck abscess. Incision and drainage is recommended. Culture and sensitivity will be performed upon the material produced. Operative Findings: Large 4 cm foul-smelling purulence expressed from the neck. Successful drainage was accomplished with the production of a large amount of abscess material. Description of Procedure: Left neck was anesthetized with lidocaine 1% with epinephrine 1 100,000. A needle aspiration was performed and 4 mL of a purulent material was expressed. We sent this for culture and sensitivity. With use of a 15 blade an incision was made from the sternocleidomastoid muscle with dissection down to the abscess pocket. With use of a hemostat for dissection we open this large abscess pocket and drained a tremendous amount of a large purulent material. Patient tolerated this well and a nonabsorbable gauze dressing was placed over this area to collect a continued expected drainage. Patient tolerated this well and follow-up will be as needed. Successful drainage with a wide opening was made.
[2018-02-15] MEDS: MELATONIN 5 MG TABLET PO SCH (20:25)
--- NOTE | 2018-02-15 23:19 | P.CONS ---
History of Present Illness - Reason for Consult Consult date: 02/15/18 - Chief Complaint Pain left side of neck - History of Present Illness 32-year-old male presents to emergency center with increasing pain and swelling to his left neck. The patient which has been having difficulties with the site for the last many days. He actually was cared for at outside hospital including antibiotic therapy without significant improvement. The patient relates he had difficulties obtaining IV access and because of his history of recent injection drug use further IV access was not provided and he was placed on oral antibiotic therapy and discharged. He directly presented to our facility and was admitted for further intervention. IV access was obtained and surgical consults were requested as well as infectious disease consultation. The patient's record shows evidence of ALLERGIES to Augmentin and Bactrim, relating that the Augmentin ALLERGIES from years ago however the nature and severity of the reaction is not clear. He was not treated with penicillins at the outside hospital. He does recall vancomycin therapy and lack of improvement. He's had further fever and he has significant pain and swelling to the left side of his neck. Was having some difficulties with swallowing, due to discomfort but not due to choking sensation was not have any difficulties with choking on his saliva. He had good range of motion of his neck. He does believe he has had a fever and believes the area has markedly worsened in the last day. Patient relates he's been to rehab and is now clean for about a month. Review of Systems Patient complains of fever significant pain to the left side of his neck but no true neck stiffness HEENT:Denies headache or acute visual change. Denies sinus or mouth discomforts. Denies significant oral cavity pain. Denies difficulty on swallowing. No thrush Lungs: Denies significant shortness of breath, cough, sputum production, or hemoptysis. Cardiovascular: Denies significant shortness of breath, chest pain, chest wall pain, orthopnea, dyspnea on exertion, syncope Gastrointestinal:Denies nausea, vomiting, diarrhea, constipation, hematemesis, melena, hematochezia. No no significant change of bowel habit noticed. Musculoskeletal: denies significant myalgias or arthralgias. No new joint swelling. Denies new back pain. Skin: Left-sided neck abscess Neuro: Denies headache or visual change. Denies any new onset weakness or difficulty with ambulation. Denies falls or seizures. Psychiatric: Has had some anxiety related to his recent discontinuation of long- term injection drug use, denies depression. Endocrine: He is thin. Relates his weight is been stable Past Medical History Past Medical History: No Reported History Additional Past Medical History / Comment(s): Hepatitis C, opiate dependance History of Any Multi-Drug Resistant Organisms: MRSA Year Discovered:: 02/26/17 MDRO Source:: foot Past Surgical History: Orthopedic Surgery Additional Past Surgical History / Comment(s): Arthroscopy left shoulder Past Anesthesia/Blood Transfusion Reactions: No Reported Reaction Past Psychological History: Anxiety, Depression Additional Psychological History / Comment(s): Single staying in a three-quarter 's house. Current tobacco use. Denies current marijuana use. Denies current injection drug use clean for about a month. Usually works in [employer] or [employer]. No experience, specifically he was in [employer] for [employer] when he was excused because of his mental health. No international travel. no animal exposures Smoking Status: Current every day smoker Past Alcohol Use History: Occasional Past Drug Use History: Marijuana, Opiates, Prescription Drug Abuse - Past Family History Mother Additional Family Medical History / Comment(s): Manic Depressive, Addiction Hx Father Family Medical History: Seizure Disorder Additional Family Medical History / Comment(s): Anxiety Daughter(s) Family Medical History: No Reported History Medications and Allergies Home Medications and Allergies Comment(s): Current Medications Acetaminophen (Tylenol Tab) 650 mg PO Q6HR PRN PRN Reason: Mild Pain or Fever > 100.5 Last Admin: 02/14/18 18:54 Dose: 650 mg Hydrocodone Bitart/Acetaminophen (Creole 7.5-325) 1 each PO Q6H PRN PRN Reason: Pain Last Admin: 02/15/18 23:05 Dose: 1 each Buspirone HCl (Buspar) 10 mg PO BID [facility] Last Admin: 02/15/18 20:25 Dose: 10 mg Dicyclomine HCl (Bentyl) 10 mg PO TID [facility] Last Admin: 02/15/18 20:25 Dose: 10 mg Enoxaparin Sodium (Lovenox) 40 mg SQ DAILY [facility] Last Admin: 02/15/18 08:15 Dose: 40 mg Sodium Chloride (Saline 0.9%) 1,000 mls @ 75 mls/hr IV .[id number] [facility] Last Admin: 02/15/18 22:37 Dose: Not Given Daptomycin 500 mg/ Sodium (Chloride) 50 mls @ 100 mls/hr IV Q24H [facility] Last Admin: 02/15/18 18:20 Dose: 100 mls/hr Ertapenem 1 gm/ Sodium (Chloride) 50 mls @ 100 mls/hr IVPB Q24H [facility] Last Admin: 02/15/18 17:52 Dose: 100 mls/hr Ketorolac Tromethamine (Toradol) 30 mg IVP Q6HR PRN PRN Reason: Moderate Pain Stop: 02/19/18 18:47 Last Admin: 02/15/18 20:25 Dose: 30 mg Melatonin (Melatonin) 5 mg PO HS [facility] Last Admin: 02/15/18 20:25 Dose: 5 mg Miscellaneous Information (Rx Info: Iv Contrast Was Given) 1 each MISCELLANE DAILY PRN PRN Reason: Per Protocol Stop: 02/16/18 16:35 Miscellaneous Information (Rx Info: Iv Contrast Was Given) 1 each MISCELLANE DAILY PRN PRN Reason: Per Protocol Stop: 02/16/18 17:08 Last Admin: 02/14/18 19:46 Dose: 1 each Naloxone HCl (Narcan) 0.2 mg IV Q2M PRN PRN Reason: Opioid Reversal Nicotine (Habitrol 14mg/24hr Patch) 1 patch TRANSDERM DAILY [facility] Last Admin: 02/15/18 08:15 Dose: 1 patch Ondansetron HCl (Zofran) 4 mg IVP Q8HR PRN PRN Reason: Nausea And Vomiting Venlafaxine HCl (Effexor Xr) 150 mg PO DAILY [facility] Last Admin: 02/15/18 08:16 Dose: 150 mg Home Medications Medication Instructions Recorded Confirmed Type Venlafaxine HCl ER [Effexor XR] 150 mg PO DAILY #30 cap.er.24h 01/28/18 Rx busPIRone HCl [Buspar] 10 mg PO BID #60 tab 01/28/18 02/15/18 Rx [id number]-Ptie-Dqhf [id number] 2 tab PO Q6H PRN 02/15/18 02/15/18 History [Excedrin] Allergies Allergy/AdvReac Type Severity Reaction Status Date / Time amoxicillin trihydrate Allergy Unknown Verified 02/15/18 07:57 [From Augmentin] potassium clavulanate Allergy Unknown Verified 02/15/18 07:57 [From Augmentin] sulfamethoxazole Allergy Rash/Hives Verified 02/15/18 07:57 [From Bactrim] trimethoprim [From Bactrim] Allergy Rash/Hives Verified 02/15/18 07:57 Physical Exam Vitals: Vital Signs Temp Pulse Resp BP BP Pulse Ox 02/15/18 16:00 85 18 02/15/18 13:55 97.9 F 85 18 128/72 98 02/15/18 08:00 83 20 02/15/18 06:00 99.3 F 83 20 127/80 97 02/14/18 23:00 98.5 F 69 16 112/65 96 Intake and Output 02/15/18 02/15/18 02/15/18 06:59 14:59 22:59 Intake Total 200 236 Output Total 1350 Balance 200 -1114 Intake: Oral 200 236 Output: Urine 1350 Other: Voiding Method Toilet Toilet Toilet # Voids 1 1 1 Weight 60.101 kg 32-year-old male who is underweight and in discomfort because of the large left neck abscess HEENT: Anicteric conjunctiva are pink and moist nasal mucosa grossly intact without significant lesions, there is no thrush. Neck: The neck is supple, the large abscesses palpable to the left side of the neck it is tender with warmth no lymphadenopathy is noted. Trachea is not shifted Lungs: Symmetrical bilateral air entry is noted expiratory wheezes are scattered no kimberly bronchial sounds told dullness or egophony Heart: Regular rate and rhythm with an audible S1-S2, no S3 no S4. There is no significant murmur click or rub, PMI was nondisplaced. Abdomen: Positive bowel sounds soft and nontender without palpable masses or organomegaly. There was no guarding or rebound. Extremities: The upper extremities have excellent pulses they are symmetric, no significant petechiae or telangiectasia. No splinter hemorrhages were noted. The lower extremities are free from significant edema. The peripheral pulses were 2+ and symmetric. Neuro: Awake alert oriented to person place and time. There are no acute new gross focal sensory motor deficits. Skin is without significant rash multiple tattoos are noted none of them are infected no other skin lesions are seen, patient is evidence of significant scarring to his hands and his feet from his prior injection drug use. Results CBC & Chem 7: 02/14/18 16:35 02/15/18 13:25 Labs: Abnormal Lab Results - Last 24 Hours (Table) 02/15/18 Range/Units 13:25 Carbon Dioxide 21 L (22-30) mmol/L Creatinine 0.57 L (0.66-1.25) mg/dL Glucose 199 H (74-99) mg/dL Microbiology - Last 24 Hours (Table) 02/14/18 16:35 Blood Culture - Preliminary Blood No Growth after 24 hours Laboratory Results WBC 21.9 k/uL (3.8-10.6) H 02/14/18 16:35 RBC 4.97 m/uL (4.30-5.90) 02/14/18 16:35 Hgb 13.2 gm/dL (13.0-17.5) 02/14/18 16:35 Hct 39.6 % (39.0-53.0) 02/14/18 16:35 MCV 79.6 fL (80.0-100.0) L 02/14/18 16:35 MCH 26.5 pg (25.0-35.0) 02/14/18 16:35 MCHC 33.3 g/dL (31.0-37.0) 02/14/18 16:35 RDW 13.3 % (11.5-15.5) 02/14/18 16:35 Plt Count 479 k/uL (150-450) H 02/14/18 16:35 Neutrophils % 86 % 02/14/18 16:35 Lymphocytes % 9 % 02/14/18 16:35 Monocytes % 4 % 02/14/18 16:35 Eosinophils % 1 % 02/14/18 16:35 Basophils % 0 % 02/14/18 16:35 Neutrophils # 18.8 k/uL (1.3-7.7) H 02/14/18 16:35 Lymphocytes # 1.9 k/uL (1.0-4.8) 02/14/18 16:35 Monocytes # 0.8 k/uL (0-1.0) 02/14/18 16:35 Eosinophils # 0.2 k/uL (0-0.7) 02/14/18 16:35 Basophils # 0.0 k/uL (0-0.2) 02/14/18 16:35 Sodium 141 mmol/L (137-145) 02/15/18 13:25 Potassium 3.9 mmol/L (3.5-5.1) 02/15/18 13:25 Chloride 104 mmol/L (98-107) 02/15/18 13:25 Carbon Dioxide 21 mmol/L (22-30) L 02/15/18 13:25 Anion Gap 16 mmol/L 02/15/18 13:25 BUN 18 mg/dL (9-20) 02/15/18 13:25 Creatinine 0.57 mg/dL (0.66-1.25) L 02/15/18 13:25 Est GFR (CKD-EPI)AfAm >90 (>60 ml/min/1.73 sqM) 02/15/18 13:25 Est GFR (CKD-EPI)NonAf >90 (>60 ml/min/1.73 sqM) 02/15/18 13:25 Glucose 199 mg/dL (74-99) H 02/15/18 13:25 Plasma Lactic Acid Petey 1.4 mmol/L (0.7-2.0) 02/14/18 16:35 Calcium 9.5 mg/dL (8.4-10.2) 02/15/18 13:25 Total Bilirubin 0.5 mg/dL (0.2-1.3) 02/15/18 13:25 AST 20 U/L (17-59) 02/15/18 13:25 ALT 24 U/L (21-72) 02/15/18 13:25 Alkaline Phosphatase 93 U/L (38-126) 02/15/18 13:25 Total Protein 7.5 g/dL (6.3-8.2) 02/15/18 13:25 Albumin 3.9 g/dL (3.5-5.0) 02/15/18 13:25 Urine Color Yellow 02/15/18 08:25 Urine Appearance Clear (Clear) 02/15/18 08:25 Urine pH 6.5 (5.0-8.0) 02/15/18 08:25 Ur Specific [place] 1.013 (1.001-1.035) 02/15/18 08:25 Urine Protein Negative (Negative) 02/15/18 08:25 Urine Glucose (UA) Negative (Negative) 02/15/18 08:25 Urine Ketones Negative (Negative) 02/15/18 08:25 Urine Blood Negative (Negative) 02/15/18 08:25 Urine Nitrite Negative (Negative) 02/15/18 08:25 Urine Bilirubin Negative (Negative) 02/15/18 08:25 Urine Urobilinogen <2.0 mg/dL (<2.0) 02/15/18 08:25 Ur Leukocyte Esterase Negative (Negative) 02/15/18 08:25 Microbiology 02/14/18 16:35 Blood Blood Culture - Preliminary No Growth after 24 hours Comments: Computed tomography scan of the neck is noted to show evidence of a large abscess left neck and bone the sternocleidomastoid muscle Assessment and Plan (1) Failure of outpatient treatment Current Visit: Yes Status: Acute Code(s): Z78.9 - OTHER SPECIFIED HEALTH STATUS SNOMED Code(s): 690091202 (2) Leukocytosis Current Visit: Yes Status: Acute Code(s): D72.829 - ELEVATED WHITE BLOOD CELL COUNT, UNSPECIFIED SNOMED Code(s): 815867611 (3) Neck abscess Narrative/Plan: 32-year-old male who has a history of injection drug use stopping about one month ago after his stay in rehab and is now residing in a three- quarter's house. Patient relates that he has had the sudden onset the patient is going to the left side of his neck. Was cared for at an outside hospital. They great difficulty with IV access and eventually was transitioned to oral antibiotic therapy and discharged to home. He was on oral hepatic therapy at the hospital and failed to improve. He has a presented to emergency center and has been admitted. He is evaluated by ENT surgery and Gen. surgery, surgical plan is awaited. The patient has very limited intravenous access and consequently will utilize the most effective antibiotic therapy with the least amount of toxicity to the veins. Consequently vancomycin is transitioned to daptomycin, and ertapenem will be utilized for coverage of the anaerobes and gram-negative organisms that are potential. The patient does have multiple poor teeth which are the potential source of the current abscess. He has a history of MRSA and consequently prudent to ensure this is covered. He believes he is up-to-date on his tetanus vaccine. We'll need protein supplements to help with his healing process. Multivitamin with zinc will also be added in the morning. IV access is of great difficulty, patient requesting a PICC line which is not advisable however a short-term midline catheter can be arranged. Current Visit: Yes Status: Acute Code(s): L02.11 - CUTANEOUS ABSCESS OF NECK SNOMED Code(s): 7414524
[2018-02-16] MEDS: KETOROLAC 30 MG/ML 1 ML VIAL IVP PRN ×4 (02:31→22:00)
[2018-02-16] MEDS: HYDROcodone/APAP 7.5-325MG 1 EACH TAB PO PRN ×3 (05:05→17:10)
[2018-02-16] MEDS: NICOTINE 14MG/24HR PATCH TRANSDERM SCH (08:22)
[2018-02-16] MEDS: busPIRone HCl 10 MG TAB PO SCH ×2 (08:22→20:08)
[2018-02-16] MEDS: VENLAFAXINE HCL ER 150 MG CAP PO SCH (08:22)
[2018-02-16] MEDS: ENOXAPARIN 40 MG/0.4 ML SYRINGE SQ SCH (08:22)
[2018-02-16] MEDS: DICYCLOMINE 10 MG CAP PO SCH ×3 (08:22→20:09)
[2018-02-16 08:29] LABS: Anion Gap 12 mmol/L; Blood Urea Nitrogen 15 mg/dL (9-20); Calcium 8.9 mg/dL (8.4-10.2); Carbon Dioxide 23 mmol/L (22-30); Chloride 107 mmol/L (98-107); Glucose 90 mg/dL (74-99); Potassium 4.5 mmol/L (3.5-5.1); Sodium 142 mmol/L (137-145)
[2018-02-16] MEDS ORDERED: VANCOMYCIN TROUGH DUE 1 EACH MISC MISCELLANE ONE (11:00)
[2018-02-16 11:04] LABS: Basophils % (A) 0 %; Eosinophils # (A) 0.1 k/uL (0-0.7); Eosinophils % (A) 1 %; HCT 37.7 % (39.0-53.0); HGB 12.3 gm/dL (13.0-17.5); Lymphocytes # (A) 1.8 k/uL (1.0-4.8); Lymphocytes % (A) 12 %; MCHC 32.5 g/dL (31.0-37.0); MCV 80.1 fL (80.0-100.0); Mean Platelet Volume 6.5; Monocytes # (A) 0.5 k/uL (0-1.0); Monocytes % (A) 4 %; Neutrophils # (A) 12.2 k/uL (1.3-7.7); Neutrophils % (A) 82 %; Platelet Count 432 k/uL (150-450); RBC 4.71 m/uL (4.30-5.90)
[2018-02-16] MEDS: SODIUM CHLORIDE 0.9% 1,000 ML IV SCH (11:23)
--- NOTE | 2018-02-16 11:59 | P.PN ---
Subjective Progress Note Date: 02/16/18 32-year-old single examined sitting up in bed dressing removed from left neck.To inspect incision site Decrease edema noted from the left neck abscess. Less tenderness. Scant amount of drainage noted on the dressing Patient status post incision and drainage of a large 4 cm left neck complex abscess done by Dr. Moody ENT on February 15 patient is being followed by infectious disease Dr. Menezes recommendations reviewed noted and appreciated currently IV antibiotics daptomycin and Invanz Objective - Vital Signs Vital signs: Vital Signs Temp 97.8 F 02/16/18 06:36 Pulse 75 02/16/18 06:36 Resp 18 02/16/18 08:57 BP 128/82 02/16/18 06:36 Pulse Ox 98 02/16/18 06:36 Intake & Output 02/15/18 02/16/18 02/16/18 18:59 06:59 18:59 Intake Total 236 100 Output Total 1350 Balance -1114 100 Weight 60.101 kg 60.101 kg Intake: Oral 236 100 Output: Urine 1350 Other: Voiding Method Toilet Toilet Toilet # Voids 1 1 1 - Exam Physical exam 32-year-old male sitting up in bed taking a diet appears in no acute distress Lungs adequate air movement bilaterally no shortness of breath noted no cough Heart S1-S2 audible regular Neck dressing to the left neck dry decrease edema decreased redness decrease tenderness Abdomen soft nontender Extremities no edema - Labs CBC & Chem 7: 02/16/18 10:50 02/16/18 07:42 Labs: Abnormal Lab Results - Last 24 Hours (Table) 02/15/18 02/16/18 02/16/18 Range/Units 13:25 07:42 10:50 WBC 15.0 H (3.8-10.6) k/uL Hgb 12.3 L (13.0-17.5) gm/dL Hct 37.7 L (39.0-53.0) % Neutrophils # 12.2 H (1.3-7.7) k/uL Carbon Dioxide 21 L (22-30) mmol/L Creatinine 0.57 L 0.55 L (0.66-1.25) mg/dL Glucose 199 H (74-99) mg/dL Microbiology - Last 24 Hours (Table) 02/15/18 19:00 Gram Stain - Preliminary Neck Wound Culture - Preliminary 02/15/18 19:00 Anaerobic Culture - Preliminary Neck 02/14/18 16:35 Blood Culture - Preliminary Blood No Growth after 24 hours Assessment and Plan Assessment: Impression Status post incision and drainage of a large 4 cm left neck abscess culture sent done on February 15 by ENT service History of IV drug use in remission one month prior last used Hepatitis C per history Present on admission mild hyperkalemia improved Current every day smoker Failed outpatient treatment for left neck abscess Present on admission leukocytosis trending down improving suspect due to left neck abscess Plan Continue recommendations for antibiotic therapy per infectious disease No evidence of any surgical intervention at this time Pain control will be addressed by the attending DVT and GI prophylaxis We'll sign off re-eval as needed no further surgical recommendations at this time The above impression and plan of care have been discussed and directed by signing physician. Roya Camara nurse practitioner acting as scribe for signing physician.
--- NOTE | 2018-02-16 13:12 | P.PN ---
Subjective Progress Note Date: 02/16/18 Principal diagnosis: Left neck abscess Pain and swelling in the neck are improving. No difficulty breathing. Objective - Vital Signs Vital signs: Vital Signs Temp 97.8 F 02/16/18 06:36 Pulse 75 02/16/18 06:36 Resp 18 02/16/18 08:57 BP 128/82 02/16/18 06:36 Pulse Ox 98 02/16/18 06:36 Intake & Output 02/15/18 02/16/18 02/16/18 18:59 06:59 18:59 Intake Total 236 100 Output Total 1350 Balance -1114 100 Weight 60.101 kg 60.101 kg Intake: Oral 236 100 Output: Urine 1350 Other: Voiding Method Toilet Toilet Toilet # Voids 1 1 1 - Exam Constitutional: No acute distress, conversant, pleasant Eyes:Anicteric sclerae, moist conjunctiva, no lid-lag, PERRLA, ENMT: Oropharynx clear, no erythema, exudates Neck: left neck tender swelling and erythema, neck is supple, FROM, no masses, or JVD, No carotid bruits, No thyromegaly Lungs: Clear to auscultation, Clear to percussion, Normal respiratory effort, no accessory muscle use Cardiovascular: Heart regular in rate and rhythm, No murmurs, gallops, or rubs, No peripheral edema Abdominal: Soft, Nontender, no guarding, rebound or rigidity, Normoactive bowel sounds, No hepatomegaly, No splenomegaly, No palpable mass Skin: Normal temperature, tone, texture, turgor, no induration, No subcutaneous nodules, No rash, lesions, No ulcers Extremities: No digital cyanosis, No clubbing, Pedal pulses intact and symmetrical, Radial pulses intact and symmetrical, No calf tenderness Psychiatric: Alert and oriented to person, place and time, appropriate affect, intact judgement Neuro: Muscles Strength 5/5 in all 4 extremities, Sensation to light touch grossly present throughout, Cranial nerves II-XII grossly intact, no focal sensory deficits - Labs CBC & Chem 7: 02/16/18 10:50 02/16/18 07:42 Labs: Abnormal Lab Results - Last 24 Hours (Table) 02/15/18 02/16/18 02/16/18 Range/Units 13:25 07:42 10:50 WBC 15.0 H (3.8-10.6) k/uL Hgb 12.3 L (13.0-17.5) gm/dL Hct 37.7 L (39.0-53.0) % Neutrophils # 12.2 H (1.3-7.7) k/uL Carbon Dioxide 21 L (22-30) mmol/L Creatinine 0.57 L 0.55 L (0.66-1.25) mg/dL Glucose 199 H (74-99) mg/dL Microbiology - Last 24 Hours (Table) 02/15/18 19:00 Gram Stain - Preliminary Neck Wound Culture - Preliminary 02/15/18 19:00 Anaerobic Culture - Preliminary Neck 02/14/18 16:35 Blood Culture - Preliminary Blood No Growth after 24 hours Assessment and Plan Plan: #Sepsis secondary to skin cellulitis and abscess of the left side of the neck Continue daptomycin, ID & general surgery following Cultures pending General surgery evaluation for possible I&D #Leukocytosis Improved Secondary to above #History of IV drug abuse Checking HIV and hepatitis panel Patient last use was one month ago #DVT prophylaxis Not indicated, low risk, ambulatory
[2018-02-16] MEDS: DAPTOmycin 500 MG in SODIUM CHLORIDE 0.9% 50 ML IV SCH (16:59)
[2018-02-16 17:19] LABS: Hepatitis A Ab, Total Non-Reactive (Non-Reactive); Hepatitis A Antibody IgM Non-Reactive (Non-Reactive); Hepatitis B Core IgM Non-Reactive (Non-Reactive); Hepatitis B Surface AB- Quant 40.9 mIU/mL; Hepatitis C IgG Antibody Reactive (Non-Reactive)
[2018-02-16 17:45] LABS: HIV AB P24 Non-Reactive (Non-Reactive); HIV P24 AG Non-Reactive (Non-Reactive)
[2018-02-16] MEDS: ERTAPENEM 1 GM in SODIUM CHLORIDE 0.9% 50 ML IVPB SCH (17:46)
[2018-02-16] MEDS: MELATONIN 5 MG TABLET PO SCH (20:08)
[2018-02-16 22:46] VITALS: RESP 16
[2018-02-16] MEDS ORDERED: HYDROcodone/APAP 7.5-325MG 1 EACH TAB ONE (23:06)
[2018-02-17] MEDS ORDERED: HYDROcodone/APAP 7.5-325MG 1 EACH TAB ONE (04:50)
--- NOTE | 2018-02-17 07:40 | P.PN ---
Subjective Progress Note Date: 02/16/18 Principal diagnosis: Neck abscess 32-year-old male presents to emergency center with increasing pain and swelling to his left neck. The patient which has been having difficulties with the site for the last many days. He actually was cared for at outside hospital including antibiotic therapy without significant improvement. The patient relates he had difficulties obtaining IV access and because of his history of recent injection drug use further IV access was not provided and he was placed on oral antibiotic therapy and discharged. He directly presented to our facility and was admitted for further intervention. IV access was obtained and surgical consults were requested as well as infectious disease consultation. The patient's record shows evidence of ALLERGIES to Augmentin and Bactrim, relating that the Augmentin ALLERGIES from years ago however the nature and severity of the reaction is not clear. He was not treated with penicillins at the outside hospital. He does recall vancomycin therapy and lack of improvement. He's had further fever and he has significant pain and swelling to the left side of his neck. Was having some difficulties with swallowing, due to discomfort but not due to choking sensation was not have any difficulties with choking on his saliva. He had good range of motion of his neck. He does believe he has had a fever and believes the area has markedly worsened in the last day. Patient relates he's been to rehab and is now clean for about a month. 02/16/2018 the patient was evaluated yesterday by ENT and a bedside incision and drainage of the large abscess occurred which is allowed significant improvement of his pain and discomfort. He's eating well with no difficulties and denies any other interim troubles. Objective - Vital Signs Vital signs: Vital Signs Temp 98.2 F 02/17/18 06:15 Pulse 74 02/17/18 06:15 Resp 16 02/17/18 06:15 BP 115/73 02/17/18 06:15 Pulse Ox 98 02/17/18 06:15 Intake & Output 02/16/18 02/17/18 02/17/18 18:59 06:59 18:59 Output Total 1850 Balance -1850 Weight 60.101 kg Output: Urine 1850 Other: Voiding Method Toilet Toilet # Voids 3 1 - Exam 32-year-old male who is underweight and in discomfort because of the large left neck abscess HEENT: Anicteric conjunctiva are pink and moist nasal mucosa grossly intact without significant lesions, there is no thrush. Neck: The neck is supple, large abscesses now been incised and drained. The area is much less tender, large amount of spontaneous drainage earlier in the day which further improved his discomfort. Lungs: Symmetrical bilateral air entry is noted expiratory wheezes are scattered no kimberly bronchial sounds told dullness or egophony Heart: Regular rate and rhythm with an audible S1-S2, no S3 no S4. There is no significant murmur click or rub, PMI was nondisplaced. Abdomen: Positive bowel sounds soft and nontender without palpable masses or organomegaly. There was no guarding or rebound. Extremities: The upper extremities have excellent pulses they are symmetric, no significant petechiae or telangiectasia. No splinter hemorrhages were noted. The lower extremities are free from significant edema. The peripheral pulses were 2+ and symmetric. Neuro: Awake alert oriented to person place and time. There are no acute new gross focal sensory motor deficits. Skin is without significant rash multiple tattoos are noted none of them are infected no other skin lesions are seen, patient is evidence of significant scarring to his hands and his feet from his prior injection drug use. - Labs CBC & Chem 7: 02/16/18 10:50 02/16/18 07:42 Labs: Abnormal Lab Results - Last 24 Hours (Table) 02/16/18 02/16/18 02/16/18 Range/Units 07:42 07:42 10:50 WBC 15.0 H (3.8-10.6) k/uL Hgb 12.3 L (13.0-17.5) gm/dL Hct 37.7 L (39.0-53.0) % Neutrophils # 12.2 H (1.3-7.7) k/uL Creatinine 0.55 L (0.66-1.25) mg/dL Hep Bs Antibody Reactive H (Non-Reactive) Hep C IgG Ab Reactive H (Non-Reactive) Microbiology - Last 24 Hours (Table) 02/14/18 16:35 Blood Culture - Preliminary Blood No Growth after 48 hours 02/15/18 19:00 Gram Stain - Preliminary Neck Wound Culture - Preliminary Laboratory Results WBC 15.0 k/uL (3.8-10.6) H 02/16/18 10:50 RBC 4.71 m/uL (4.30-5.90) 02/16/18 10:50 Hgb 12.3 gm/dL (13.0-17.5) L 02/16/18 10:50 Hct 37.7 % (39.0-53.0) L 02/16/18 10:50 MCV 80.1 fL (80.0-100.0) 02/16/18 10:50 MCH 26.0 pg (25.0-35.0) 02/16/18 10:50 MCHC 32.5 g/dL (31.0-37.0) 02/16/18 10:50 RDW 13.0 % (11.5-15.5) 02/16/18 10:50 Plt Count 432 k/uL (150-450) 02/16/18 10:50 Neutrophils % 82 % 02/16/18 10:50 Lymphocytes % 12 % 02/16/18 10:50 Monocytes % 4 % 02/16/18 10:50 Eosinophils % 1 % 02/16/18 10:50 Basophils % 0 % 02/16/18 10:50 Neutrophils # 12.2 k/uL (1.3-7.7) H 02/16/18 10:50 Lymphocytes # 1.8 k/uL (1.0-4.8) 02/16/18 10:50 Monocytes # 0.5 k/uL (0-1.0) 02/16/18 10:50 Eosinophils # 0.1 k/uL (0-0.7) 02/16/18 10:50 Basophils # 0.0 k/uL (0-0.2) 02/16/18 10:50 Sodium 142 mmol/L (137-145) 02/16/18 07:42 Potassium 4.5 mmol/L (3.5-5.1) 02/16/18 07:42 Chloride 107 mmol/L (98-107) 02/16/18 07:42 Carbon Dioxide 23 mmol/L (22-30) 02/16/18 07:42 Anion Gap 12 mmol/L 02/16/18 07:42 BUN 15 mg/dL (9-20) 02/16/18 07:42 Creatinine 0.55 mg/dL (0.66-1.25) L 02/16/18 07:42 Est GFR (CKD-EPI)AfAm >90 (>60 ml/min/1.73 sqM) 02/16/18 07:42 Est GFR (CKD-EPI)NonAf >90 (>60 ml/min/1.73 sqM) 02/16/18 07:42 Glucose 90 mg/dL (74-99) 02/16/18 07:42 Plasma Lactic Acid Petey 1.4 mmol/L (0.7-2.0) 02/14/18 16:35 Calcium 8.9 mg/dL (8.4-10.2) 02/16/18 07:42 Total Bilirubin 0.5 mg/dL (0.2-1.3) 02/15/18 13:25 AST 20 U/L (17-59) 02/15/18 13:25 ALT 24 U/L (21-72) 02/15/18 13:25 Alkaline Phosphatase 93 U/L (38-126) 02/15/18 13:25 Total Protein 7.5 g/dL (6.3-8.2) 02/15/18 13:25 Albumin 3.9 g/dL (3.5-5.0) 02/15/18 13:25 Urine Color Yellow 02/15/18 08:25 Urine Appearance Clear (Clear) 02/15/18 08:25 Urine pH 6.5 (5.0-8.0) 02/15/18 08:25 Ur Specific [place] 1.013 (1.001-1.035) 02/15/18 08:25 Urine Protein Negative (Negative) 02/15/18 08:25 Urine Glucose (UA) Negative (Negative) 02/15/18 08:25 Urine Ketones Negative (Negative) 02/15/18 08:25 Urine Blood Negative (Negative) 02/15/18 08:25 Urine Nitrite Negative (Negative) 02/15/18 08:25 Urine Bilirubin Negative (Negative) 02/15/18 08:25 Urine Urobilinogen <2.0 mg/dL (<2.0) 02/15/18 08:25 Ur Leukocyte Esterase Negative (Negative) 02/15/18 08:25 Hepatitis A IgM Ab Non-Reactive (Non-Reactive) 02/16/18 07:42 Hepatitis A Ab Total Non-Reactive (Non-Reactive) 02/16/18 07:42 Hep Bs Antigen Non-Reactive (Non-Reactive) 02/16/18 07:42 Hep Bs Antibody Reactive (Non-Reactive) H 02/16/18 07:42 Hep Bs Antibody, Quant 40.9 mIU/mL 02/16/18 07:42 Hep B Core Total Ab Non-Reactive (Non-Reactive) 02/16/18 07:42 Hep B Core IgM Ab Non-Reactive (Non-Reactive) 02/16/18 07:42 Hep C IgG Ab Reactive (Non-Reactive) H 02/16/18 07:42 HIV-1 Antibody Non-Reactive (Non-Reactive) 02/16/18 07:42 HIV Ag/Ab Interpret (()) 02/16/18 07:42 HIV p24 Antibody Non-Reactive (Non-Reactive) 02/16/18 07:42 HIV-2 Antibody Non-Reactive (Non-Reactive) 02/16/18 07:42 HIV P24 Antigen Non-Reactive (Non-Reactive) 02/16/18 07:42 Microbiology 02/14/18 16:35 Blood Blood Culture - Preliminary No Growth after 48 hours 02/15/18 19:00 Neck Gram Stain - Preliminary 02/15/18 19:00 Neck Wound Culture - Preliminary 02/15/18 19:00 Neck Anaerobic Culture - Preliminary Assessment and Plan (1) Failure of outpatient treatment Current Visit: Yes Status: Acute Code(s): Z78.9 - OTHER SPECIFIED HEALTH STATUS SNOMED Code(s): 216423376 (2) Leukocytosis Current Visit: Yes Status: Acute Code(s): D72.829 - ELEVATED WHITE BLOOD CELL COUNT, UNSPECIFIED SNOMED Code(s): 395019158 (3) Neck abscess Narrative/Plan: 32-year-old male who has a history of injection drug use stopping about one month ago after his stay in rehab and is now residing in a [facility]- quarter[facility] house. Patient relates that he has had the sudden onset the patient is going to the left side of his neck. Was cared for at an outside hospital. They great difficulty with IV access and eventually was transitioned to oral antibiotic therapy and discharged to home. He was on oral hepatic therapy at the hospital and failed to improve. He has a presented to emergency center and has been admitted. He is evaluated by ENT surgery and Gen. surgery, surgical plan is awaited. The patient has very limited intravenous access and consequently will utilize the most effective antibiotic therapy with the least amount of toxicity to the veins. Consequently vancomycin is transitioned to daptomycin, and ertapenem will be utilized for coverage of the anaerobes and gram-negative organisms that are potential. The patient does have multiple poor teeth which are the potential source of the current abscess. He has a history of MRSA and consequently prudent to ensure this is covered. He believes he is up-to-date on his tetanus vaccine. We'll need protein supplements to help with his healing process. Multivitamin with zinc will also be added in the morning. IV access is of great difficulty, patient requesting a PICC line which is not advisable however a short-term midline catheter can be arranged 02/16/2018 patient is much improvedhad the bedside incision and drainage of large abscess. He has much less uncomfortable. The patient last injected into his neck greater than a month ago when he was still actively injecting. It appears to be somewhat remote but still a potential etiology but does have carious teeth is not a potential for the significant area of abscess. There is no notation of any further surgical plans. Clinically much improved. Midline placed for his antibiotic therapy while he is here. Current Visit: Yes Status: Acute Code(s): L02.11 - CUTANEOUS ABSCESS OF NECK SNOMED Code(s): 7789158
[2018-02-17 09:12] LABS: Basophils % (A) 0 %; Eosinophils # (A) 0.2 k/uL (0-0.7); Eosinophils % (A) 2 %; HGB 12.3 gm/dL (13.0-17.5); Lymphocytes # (A) 1.8 k/uL (1.0-4.8); Lymphocytes % (A) 17 %; MCHC 32.5 g/dL (31.0-37.0); Monocytes # (A) 0.5 k/uL (0-1.0); Monocytes % (A) 4 %; Neutrophils % (A) 74 %; Platelet Count 392 k/uL (150-450); RBC 4.75 m/uL (4.30-5.90); RDW 13.5 % (11.5-15.5); WBC 10.8 k/uL (3.8-10.6)
[2018-02-17] MEDS: SODIUM CHLORIDE 0.9% 1,000 ML IV SCH ×2 (09:49→14:19)
[2018-02-17] MEDS: NICOTINE 14MG/24HR PATCH TRANSDERM SCH (09:51)
[2018-02-17] MEDS: ENOXAPARIN 40 MG/0.4 ML SYRINGE SQ SCH (09:52)
[2018-02-17] MEDS: DICYCLOMINE 10 MG CAP PO SCH ×3 (09:52→21:11)
[2018-02-17] MEDS: VENLAFAXINE HCL ER 150 MG CAP PO SCH (09:52)
[2018-02-17] MEDS: busPIRone HCl 10 MG TAB PO SCH ×2 (09:52→21:11)
[2018-02-17 10:16] LABS: Anion Gap 15 mmol/L; Blood Urea Nitrogen 19 mg/dL (9-20); Calcium 9.1 mg/dL (8.4-10.2); Carbon Dioxide 22 mmol/L (22-30); Chloride 104 mmol/L (98-107); Glucose 157 mg/dL (74-99); Potassium 4.3 mmol/L (3.5-5.1); Sodium 141 mmol/L (137-145)
[2018-02-17] MEDS: HYDROcodone/APAP 7.5-325MG 1 EACH TAB PO PRN ×3 (10:41→21:11)
--- NOTE | 2018-02-17 12:44 | P.PN ---
Subjective Progress Note Date: 02/17/18 Principal diagnosis: Left neck abscess Feeling better, less pain and swelling. Objective - Vital Signs Vital signs: Vital Signs Temp 98.2 F 02/17/18 06:15 Pulse 74 02/17/18 06:15 Resp 16 02/17/18 06:15 BP 115/73 02/17/18 06:15 Pulse Ox 98 02/17/18 06:15 Intake & Output 02/16/18 02/17/18 02/17/18 18:59 06:59 18:59 Output Total 1850 925 Balance -1850 -925 Weight 60.101 kg 60.101 kg Output: Urine 1850 925 Other: Voiding Method Toilet Toilet Toilet # Voids 3 1 1 - Exam Constitutional: No acute distress, conversant, pleasant Eyes:Anicteric sclerae, moist conjunctiva, no lid-lag, PERRLA, ENMT: Oropharynx clear, no erythema, exudates Neck: left neck tender swelling and erythema, neck is supple, FROM, no masses, or JVD, No carotid bruits, No thyromegaly Lungs: Clear to auscultation, Clear to percussion, Normal respiratory effort, no accessory muscle use Cardiovascular: Heart regular in rate and rhythm, No murmurs, gallops, or rubs, No peripheral edema Abdominal: Soft, Nontender, no guarding, rebound or rigidity, Normoactive bowel sounds, No hepatomegaly, No splenomegaly, No palpable mass Skin: Normal temperature, tone, texture, turgor, no induration, No subcutaneous nodules, No rash, lesions, No ulcers Extremities: No digital cyanosis, No clubbing, Pedal pulses intact and symmetrical, Radial pulses intact and symmetrical, No calf tenderness Psychiatric: Alert and oriented to person, place and time, appropriate affect, intact judgement Neuro: Muscles Strength 5/5 in all 4 extremities, Sensation to light touch grossly present throughout, Cranial nerves II-XII grossly intact, no focal sensory deficits - Labs CBC & Chem 7: 02/17/18 08:19 02/17/18 08:19 Labs: Abnormal Lab Results - Last 24 Hours (Table) 02/16/18 02/17/18 02/17/18 Range/Units 07:42 08:19 08:19 WBC 10.8 H (3.8-10.6) k/uL Hgb 12.3 L (13.0-17.5) gm/dL Hct 38.0 L (39.0-53.0) % Neutrophils # 8.0 H (1.3-7.7) k/uL Creatinine 0.52 L (0.66-1.25) mg/dL Glucose 157 H (74-99) mg/dL Hep Bs Antibody Reactive H (Non-Reactive) Hep C IgG Ab Reactive H (Non-Reactive) Microbiology - Last 24 Hours (Table) 02/14/18 16:35 Blood Culture - Preliminary Blood No Growth after 48 hours Assessment and Plan Plan: #Sepsis secondary to skin cellulitis and abscess of the left side of the neck Continue daptomycin, ID & general surgery following Cultures pending S/P I&D of left neck abscess #Leukocytosis Improving Secondary to above #History of IV drug abuse Workup negative for HIV but hepatitis C is positive #DVT prophylaxis Not indicated, low risk, ambulatory
[2018-02-17] MEDS: KETOROLAC 30 MG/ML 1 ML VIAL IVP PRN ×2 (14:20→23:38)
[2018-02-17] MEDS: DAPTOmycin 500 MG in SODIUM CHLORIDE 0.9% 50 ML IV SCH (17:19)
[2018-02-17] MEDS: ERTAPENEM 1 GM in SODIUM CHLORIDE 0.9% 50 ML IVPB SCH (18:06)
[2018-02-17] MEDS: MELATONIN 5 MG TABLET PO SCH (21:11)
--- NOTE | 2018-02-18 00:49 | P.PN ---
Subjective Progress Note Date: 02/17/18 Principal diagnosis: Neck abscess 32-year-old male presents to emergency center with increasing pain and swelling to his left neck. The patient which has been having difficulties with the site for the last many days. He actually was cared for at outside hospital including antibiotic therapy without significant improvement. The patient relates he had difficulties obtaining IV access and because of his history of recent injection drug use further IV access was not provided and he was placed on oral antibiotic therapy and discharged. He directly presented to our facility and was admitted for further intervention. IV access was obtained and surgical consults were requested as well as infectious disease consultation. The patient's record shows evidence of ALLERGIES to Augmentin and Bactrim, relating that the Augmentin ALLERGIES from years ago however the nature and severity of the reaction is not clear. He was not treated with penicillins at the outside hospital. He does recall vancomycin therapy and lack of improvement. He's had further fever and he has significant pain and swelling to the left side of his neck. Was having some difficulties with swallowing, due to discomfort but not due to choking sensation was not have any difficulties with choking on his saliva. He had good range of motion of his neck. He does believe he has had a fever and believes the area has markedly worsened in the last day. Patient relates he's been to rehab and is now clean for about a month. 02/16/2018 the patient was evaluated yesterday by ENT and a bedside incision and drainage of the large abscess occurred which is allowed significant improvement of his pain and discomfort. He's eating well with no difficulties and denies any other interim troubles. 02/17/2018 patient now with marked further improvement of the pain to the left side of his neck. Drainage has improved. Eating and drinking well. Fevers and chills have improved. Objective - Vital Signs Vital signs: Vital Signs Temp 98.5 F 02/17/18 14:20 Pulse 73 02/17/18 14:20 Resp 16 02/17/18 14:20 BP 127/73 02/17/18 14:20 Pulse Ox 98 02/17/18 14:20 Intake & Output 02/17/18 02/17/18 02/18/18 06:59 18:59 06:59 Intake Total 220 Output Total 925 Balance -705 Weight 60.101 kg 60.101 kg Intake: Intake, IV Titration 100 Amount DAPTOmycin 500 mg In 50 Sodium Chloride 0.9% 50 ml @ 100 mls/hr IV Q24H [facility] Rx#:[id number] Ertapenem 1 gm In Sodium 50 Chloride 0.9% 50 ml @ 100 mls/hr IVPB Q24H [facility] Rx# :[id number] Oral 120 Output: Urine 925 Other: Voiding Method Toilet Toilet Toilet # Voids 1 3 - Exam 32-year-old male who is underweight and in discomfort because of the large left neck abscess HEENT: Anicteric conjunctiva are pink and moist nasal mucosa grossly intact without significant lesions, there is no thrush. Neck: The neck is supple, large abscesses now been incised and drained. There is further improvement of the swelling of the left side of the neck. It is now some minimal only with a 2 cm area of induration and erythema. Lungs: Symmetrical bilateral air entry is noted expiratory wheezes are scattered no kimberly bronchial sounds told dullness or egophony Heart: Regular rate and rhythm with an audible S1-S2, no S3 no S4. There is no significant murmur click or rub, PMI was nondisplaced. Abdomen: Positive bowel sounds soft and nontender without palpable masses or organomegaly. There was no guarding or rebound. Extremities: The upper extremities have excellent pulses they are symmetric, no significant petechiae or telangiectasia. No splinter hemorrhages were noted. The lower extremities are free from significant edema. The peripheral pulses were 2+ and symmetric. Neuro: Awake alert oriented to person place and time. There are no acute new gross focal sensory motor deficits. Skin is without significant rash multiple tattoos are noted none of them are infected no other skin lesions are seen, patient is evidence of significant scarring to his hands and his feet from his prior injection drug use. - Labs CBC & Chem 7: 02/17/18 08:19 02/17/18 08:19 Labs: Abnormal Lab Results - Last 24 Hours (Table) 02/16/18 02/17/18 02/17/18 Range/Units 07:42 08:19 08:19 WBC 10.8 H (3.8-10.6) k/uL Hgb 12.3 L (13.0-17.5) gm/dL Hct 38.0 L (39.0-53.0) % Neutrophils # 8.0 H (1.3-7.7) k/uL Creatinine 0.52 L (0.66-1.25) mg/dL Glucose 157 H (74-99) mg/dL Hep Bs Antibody Reactive H (Non-Reactive) Hep C IgG Ab Reactive H (Non-Reactive) Microbiology - Last 24 Hours (Table) 02/15/18 19:00 Gram Stain - Preliminary Neck Wound Culture - Preliminary Eikenella species Alpha Hemolytic Streptococcus 02/14/18 16:35 Blood Culture - Preliminary Blood No Growth after 72 hours Laboratory Results WBC 10.8 k/uL (3.8-10.6) H 02/17/18 08:19 RBC 4.75 m/uL (4.30-5.90) 02/17/18 08:19 Hgb 12.3 gm/dL (13.0-17.5) L 02/17/18 08:19 Hct 38.0 % (39.0-53.0) L 02/17/18 08: MCV 80.0 fL (80.0-100.0) 02/17/18 08: MCH 26.0 pg (25.0-35.0) 02/17/18 08: MCHC 32.5 g/dL (31.0-37.0) 02/17/18 08:19 RDW 13.5 % (11.5-15.5) 02/17/18 08:19 Plt Count 392 k/uL (150-450) 02/17/18 08:19 Neutrophils % 74 % 02/17/18 08: Lymphocytes % 17 % 02/17/18 08:19 Monocytes % 4 % 02/17/18 08:19 Eosinophils % 2 % 02/17/18 08:19 Basophils % 0 % 02/17/18 08:19 Neutrophils # 8.0 k/uL (1.3-7.7) H 02/17/18 08: Lymphocytes # 1.8 k/uL (1.0-4.8) 02/17/18 08:19 Monocytes # 0.5 k/uL (0-1.0) 02/17/18 08:19 Eosinophils # 0.2 k/uL (0-0.7) 02/17/18 08:19 Basophils # 0.0 k/uL (0-0.2) 04/18/18 08:19 Sodium 141 mmol/L (137-145) 02/17/18 08:19 Potassium 4.3 mmol/L (3.5-5.1) 02/17/18 08:19 Chloride 104 mmol/L (98-107) 02/17/18 08:19 Carbon Dioxide 22 mmol/L (22-30) 02/17/18 08:19 Anion Gap 15 mmol/L 02/17/18 08:19 BUN 19 mg/dL (9-20) 02/17/18 08:19 Creatinine 0.52 mg/dL (0.66-1.25) L 02/17/18 08:19 Est GFR (CKD-EPI)AfAm >90 (>60 ml/min/1.73 sqM) 02/17/18 08:19 Est GFR (CKD-EPI)NonAf >90 (>60 ml/min/1.73 sqM) 02/17/18 08:19 Glucose 157 mg/dL (74-99) H 02/17/18 08:19 Plasma Lactic Acid Petey 1.4 mmol/L (0.7-2.0) 02/14/18 16:35 Calcium 9.1 mg/dL (8.4-10.2) 02/17/18 08:19 Total Bilirubin 0.5 mg/dL (0.2-1.3) 02/15/18 13:25 AST 20 U/L (17-59) 02/15/18 13:25 ALT 24 U/L (21-72) 02/15/18 13:25 Alkaline Phosphatase 93 U/L (38-126) 02/15/18 13:25 Total Protein 7.5 g/dL (6.3-8.2) 02/15/18 13:25 Albumin 3.9 g/dL (3.5-5.0) 02/15/18 13:25 Urine Color Yellow 02/15/18 08:25 Urine Appearance Clear (Clear) 02/15/18 08:25 Urine pH 6.5 (5.0-8.0) 02/15/18 08:25 Ur Specific [place] 1.013 (1.001-1.035) 02/15/18 08:25 Urine Protein Negative (Negative) 02/15/18 08:25 Urine Glucose (UA) Negative (Negative) 02/15/18 08:25 Urine Ketones Negative (Negative) 02/15/18 08:25 Urine Blood Negative (Negative) 02/15/18 08:25 Urine Nitrite Negative (Negative) 02/15/18 08:25 Urine Bilirubin Negative (Negative) 02/15/18 08:25 Urine Urobilinogen <2.0 mg/dL (<2.0) 02/15/18 08:25 Ur Leukocyte Esterase Negative (Negative) 02/15/18 08:25 Hepatitis A IgM Ab Non-Reactive (Non-Reactive) 02/16/18 07:42 Hepatitis A Ab Total Non-Reactive (Non-Reactive) 02/16/18 07:42 Hep Bs Antigen Non-Reactive (Non-Reactive) 02/16/18 07:42 Hep Bs Antibody Reactive (Non-Reactive) H 02/16/18 07:42 Hep Bs Antibody, Quant 40.9 mIU/mL 02/16/18 07:42 Hep B Core Total Ab Non-Reactive (Non-Reactive) 02/16/18 07:42 Hep B Core IgM Ab Non-Reactive (Non-Reactive) 02/16/18 07:42 Hep C IgG Ab Reactive (Non-Reactive) H 02/16/18 07:42 HIV-1 Antibody Non-Reactive (Non-Reactive) 02/16/18 07:42 HIV Ag/Ab Interpret (()) 02/16/18 07:42 HIV p24 Antibody Non-Reactive (Non-Reactive) 02/16/18 07:42 HIV-2 Antibody Non-Reactive (Non-Reactive) 02/16/18 07:42 HIV P24 Antigen Non-Reactive (Non-Reactive) 02/16/18 07:42 Microbiology 02/15/18 19:00 Neck Gram Stain - Preliminary 02/15/18 19:00 Neck Wound Culture - Preliminary Eikenella species Alpha Hemolytic Streptococcus 02/14/18 16:35 Blood Blood Culture - Preliminary No Growth after 72 hours 02/15/18 19:00 Neck Anaerobic Culture - Preliminary Assessment and Plan (1) Failure of outpatient treatment Current Visit: Yes Status: Acute Code(s): Z78.9 - OTHER SPECIFIED HEALTH STATUS SNOMED Code(s): 386550662 (2) Leukocytosis Current Visit: Yes Status: Acute Code(s): D72.829 - ELEVATED WHITE BLOOD CELL COUNT, UNSPECIFIED SNOMED Code(s): 821359849 (3) Neck abscess Narrative/Plan: 32-year-old male who has a history of injection drug use stopping about one month ago after his stay in rehab and is now residing in a [facility]- quarter[facility] house. Patient relates that he has had the sudden onset the patient is going to the left side of his neck. Was cared for at an outside hospital. They great difficulty with IV access and eventually was transitioned to oral antibiotic therapy and discharged to home. He was on oral hepatic therapy at the hospital and failed to improve. He has a presented to emergency center and has been admitted. He is evaluated by ENT surgery and Gen. surgery, surgical plan is awaited. The patient has very limited intravenous access and consequently will utilize the most effective antibiotic therapy with the least amount of toxicity to the veins. Consequently vancomycin is transitioned to daptomycin, and ertapenem will be utilized for coverage of the anaerobes and gram-negative organisms that are potential. The patient does have multiple poor teeth which are the potential source of the current abscess. He has a history of MRSA and consequently prudent to ensure this is covered. He believes he is up-to-date on his tetanus vaccine. We'll need protein supplements to help with his healing process. Multivitamin with zinc will also be added in the morning. IV access is of great difficulty, patient requesting a PICC line which is not advisable however a short-term midline catheter can be arranged 02/16/2018 patient is much improved had the bedside incision and drainage of large abscess. He has much less uncomfortable. The patient last injected into his neck greater than a month ago when he was still actively injecting. It appears to be somewhat remote but still a potential etiology but does have carious teeth is not a potential for the significant area of abscess. There is no notation of any further surgical plans. Clinically much improved. Midline placed for his antibiotic therapy while he is here. 02/17/2018 patient had difficulty with his midline catheter, had to be replaced today. Is receiving some IV fluids to keep it patent. Patient fortunately is having a marked improvement with the current antibiotic therapy. HIV is negative. Hepatitis C is positive. Will need outpatient follow-up after his stay at rehab. Once cultures are finalized within have to construct the plan of outpatient antibiotic therapy, fortunately is much improved at this time. Current Visit: Yes Status: Acute Code(s): L02.11 - CUTANEOUS ABSCESS OF NECK SNOMED Code(s): 7020784
[2018-02-18] MEDS: HYDROcodone/APAP 7.5-325MG 1 EACH TAB PO PRN ×2 (06:05→11:46)
[2018-02-18] MEDS: SODIUM CHLORIDE 0.9% 1,000 ML IV SCH (06:08)
[2018-02-18 07:40] VITALS: BP 114/74; PULSE 75; TEMP 98.6
[2018-02-18] MEDS: NICOTINE 14MG/24HR PATCH TRANSDERM SCH (08:54)
[2018-02-18] MEDS: DICYCLOMINE 10 MG CAP PO SCH (08:54)
[2018-02-18] MEDS: busPIRone HCl 10 MG TAB PO SCH (08:54)
[2018-02-18] MEDS: VENLAFAXINE HCL ER 150 MG CAP PO SCH (08:54)
[2018-02-18] MEDS: ENOXAPARIN 40 MG/0.4 ML SYRINGE SQ SCH (08:55)
[2018-02-18] MEDS: KETOROLAC 30 MG/ML 1 ML VIAL IVP PRN (09:11)
[2018-02-18] MEDS ORDERED: AMOXIC-POT CLAV 875-125MG 1 EACH TAB PO STA (11:19)
--- NOTE | 2018-02-18 13:30 | P.DS ---
Providers Date of admission: 02/14/18 19:15 Expected date of discharge: 02/18/18 Attending physician: Dinh Mann MD Consults: 02/14/18 19:34 Consult Physician Routine Consulting Provider: Gabby Adams Consult Reason/Comments: I&D Do you want consulting provider notified?: Yes 02/14/18 22:59 Consult Physician Stat Consulting Provider: Mayank Jang Consult Reason/Comments: neck abcess Do you want consulting provider notified?: Yes 02/14/18 23:44 Consult Physician Routine Consulting Provider: Silver Cat Consult Reason/Comments: neck abcess Do you want consulting provider notified?: Yes, Notify in am Primary care physician: Stated None Hospital Course: 32-year-old male presented emergency Department chief complaint pain and swelling left side of his neck for 1 week. He stated he was at [facility] and was admitted for an abscess and was discharged from [place] the day before admission. Patient was discharged home on oral clindamycin and Levaquin, but because his symptoms were worsening he came back to the ER. Associated symptoms include difficulty swallowing. No chest pain or shortness of breath. Patient denied any prior infections like this although he does have a history of MRSA. He is a former IV drug user, stated that he went to [place] one month ago and has been clean ever since. Patient denies headache, dizziness. Initially he had a low-grade temperature of 100.2, rest of his vital signs were all within normal limits, a CT of his neck indicating a 4.4 cm irregular mass on the left anterior margin of the sternocleidomastoid suggested as abscess versus necrotic lymphadenopathy versus neoplasm or infected branchial cleft cyst. Laboratory findings revealed leukocytosis of 21,000. Based on all of the clinical findings he was diagnosed with sepsis secondary to left neck abscess. Patient was treated with IV fluids, He was also started on broad- spectrum IV antibiotics including clindamycin and vancomycin. He was evaluated by general surgery service who performed an incision and drainage of the left neck abscess. Later patient was seen by Dr. Cat from [place] who discontinued the vancomycin and clindamycin and started the patient on daptomycin. Patient improved significantly with that treatment. The swelling and the pain in his left neck side improved a lot. His leukocytosis resolved. Cultures from the incision and drainage revealed Eikenella as well as hemolytic streptococcus group A. The case was discussed with Dr. Cat who recommended discharging him on Augmentin. Patient be discharged to a [facility] house in a stable condition. Discharge diagnoses: Acute sepsis secondary to left neck abscess, resolved Left neck abscess likely secondary to a drug abuse IV Hepatitis C Patient Condition at Discharge: Stable Plan - Discharge Summary Discharge Rx Participant: Yes New Discharge Prescriptions: New Amoxic-Pot Clav 875-125Mg [Augmentin 875-125] 1 tab PO Q12HR #14 tablet Acetaminophen Tab [Tylenol] 650 mg PO Q6HR PRN tab PRN Reason: Mild Pain Or Fever > 100.5 Nicotine 14Mg/24Hr Patch [Habitrol] 1 patch TRANSDERM DAILY #20 patch Continue busPIRone HCl [Buspar] 10 mg PO BID #60 tab Venlafaxine HCl ER [Effexor XR] 150 mg PO DAILY #30 cap.er.24h Hijpjko-Yxte-Syro [phone] [Excedrin] 2 tab PO Q6H PRN PRN Reason: Migraine Headache Discharge Medication List Venlafaxine HCl ER [Effexor XR] 150 mg PO DAILY #30 cap.er.24h 01/28/18 [Rx] busPIRone HCl [Buspar] 10 mg PO BID #60 tab 01/28/18 [Rx] Ubtgglo-Oaux-Aegn [phone] [Excedrin] 2 tab PO Q6H PRN 02/15/18 [History] Acetaminophen Tab [Tylenol] 650 mg PO Q6HR PRN tab 02/18/18 [Rx] Amoxic-Pot Clav 875-125Mg [Augmentin 875-125] 1 tab PO Q12HR #14 tablet [Rx] Nicotine 14Mg/24Hr Patch [Habitrol] 1 patch TRANSDERM DAILY #20 patch 02/18/18 [ Rx] Follow up Appointment(s)/Referral(s): Nilton Crane MD [STAFF PHYSICIAN] - 1 Week
--- NOTE | 2018-02-18 22:25 | P.PN ---
Subjective Progress Note Date: 02/18/18 Principal diagnosis: Neck abscess 32-year-old male presents to emergency center with increasing pain and swelling to his left neck. The patient which has been having difficulties with the site for the last many days. He actually was cared for at outside hospital including antibiotic therapy without significant improvement. The patient relates he had difficulties obtaining IV access and because of his history of recent injection drug use further IV access was not provided and he was placed on oral antibiotic therapy and discharged. He directly presented to our facility and was admitted for further intervention. IV access was obtained and surgical consults were requested as well as infectious disease consultation. The patient's record shows evidence of ALLERGIES to Augmentin and Bactrim, relating that the Augmentin ALLERGIES from years ago however the nature and severity of the reaction is not clear. He was not treated with penicillins at the outside hospital. He does recall vancomycin therapy and lack of improvement. He's had further fever and he has significant pain and swelling to the left side of his neck. Was having some difficulties with swallowing, due to discomfort but not due to choking sensation was not have any difficulties with choking on his saliva. He had good range of motion of his neck. He does believe he has had a fever and believes the area has markedly worsened in the last day. Patient relates he's been to rehab and is now clean for about a month. 02/16/2018 the patient was evaluated yesterday by ENT and a bedside incision and drainage of the large abscess occurred which is allowed significant improvement of his pain and discomfort. He's eating well with no difficulties and denies any other interim troubles. 02/17/2018 patient now with marked further improvement of the pain to the left side of his neck. Drainage has improved. Eating and drinking well. Fevers and chills have improved. 02/18/2018 patient has further improvement. Pain is generally resolved. He has no further drainage. The difficulty with swallowing. Is having no further fevers or chills. Objective - Vital Signs Vital signs: Vital Signs Temp 98.6 F 02/18/18 07:00 Pulse 75 02/18/18 07:00 Resp 16 02/18/18 07:00 BP 114/74 02/18/18 07:00 Pulse Ox 99 02/18/18 07:00 Intake & Output 02/18/18 02/18/18 02/19/18 06:59 18:59 06:59 Intake Total 420 Balance 420 Weight 60.101 kg Intake: Intake, IV Titration 300 Amount Sodium Chloride 0.9% 1, 300 000 ml @ 75 mls/hr IV . [id number] [facility] Rx#:[id number] Oral 120 Other: Voiding Method Toilet Toilet # Voids 1 3 - Exam 32-year-old male who is underweight and in discomfort because of the large left neck abscess HEENT: Anicteric conjunctiva are pink and moist nasal mucosa grossly intact without significant lesions, there is no thrush. Neck: The neck is supple, large abscesses now been incised and drained. There is further improvement of the swelling of the left side of the neck. It is now minimal with only a very small area of induration residualskin erythema, is nontender and no drainage Lungs: Symmetrical bilateral air entry is noted expiratory wheezes are scattered no kimberly bronchial sounds told dullness or egophony Heart: Regular rate and rhythm with an audible S1-S2, no S3 no S4. There is no significant murmur click or rub, PMI was nondisplaced. Abdomen: Positive bowel sounds soft and nontender without palpable masses or organomegaly. There was no guarding or rebound. Extremities: The upper extremities have excellent pulses they are symmetric, no significant petechiae or telangiectasia. No splinter hemorrhages were noted. The lower extremities are free from significant edema. The peripheral pulses were 2+ and symmetric. Neuro: Awake alert oriented to person place and time. There are no acute new gross focal sensory motor deficits. Skin is without significant rash multiple tattoos are noted none of them are infected no other skin lesions are seen, patient has evidence of significant scarring to his hands and his feet from his prior injection drug use. - Labs CBC & Chem 7: 02/17/18 08:19 02/17/18 08:19 Labs: Abnormal Lab Results - Last 24 Hours (Table) 02/16/18 Range/Units 07:42 Hep C IgG Ab Reactive H (Non-Reactive) Microbiology - Last 24 Hours (Table) 02/15/18 19:00 Anaerobic Culture - Final Neck Anaerobic Gm Negative Bacilli 02/14/18 16:35 Blood Culture - Preliminary Blood No Growth after 96 hours 02/15/18 19:00 Gram Stain - Preliminary Neck Wound Culture - Preliminary Eikenella species Alpha Hemolytic Streptococcus Laboratory Results WBC 10.8 k/uL (3.8-10.6) H 02/17/18 08:19 RBC 4.75 m/uL (4.30-5.90) 02/17/18 08:19 Hgb 12.3 gm/dL (13.0-17.5) L 02/17/18 08:19 Hct 38.0 % (39.0-53.0) L 02/17/18 08:19 MCV 80.0 fL (80.0-100.0) 02/17/18 08:19 MCH 26.0 pg (25.0-35.0) 02/17/18 08: MCHC 32.5 g/dL (31.0-37.0) 02/17/18 08:19 RDW 13.5 % (11.5-15.5) 02/17/18 08:19 Plt Count 392 k/uL (150-450) 02/17/18 08: Neutrophils % 74 % 02/17/18 08:19 Lymphocytes % 17 % 02/17/18 08:19 Monocytes % 4 % 02/17/18 08:19 Eosinophils % 2 % 02/17/18 08:19 Basophils % 0 % 02/17/18 08:19 Neutrophils # 8.0 k/uL (1.3-7.7) H 02/17/18 08:19 Lymphocytes # 1.8 k/uL (1.0-4.8) 02/17/18 08:19 Monocytes # 0.5 k/uL (0-1.0) 02/17/18 08:19 Eosinophils # 0.2 k/uL (0-0.7) 02/17/18 08:19 Basophils # 0.0 k/uL (0-0.2) 02/17/18 08:19 Sodium 141 mmol/L (137-145) 02/17/18 08:19 Potassium 4.3 mmol/L (3.5-5.1) 02/17/18 08:19 Chloride 104 mmol/L (98-107) 02/17/18 08:19 Carbon Dioxide 22 mmol/L (22-30) 02/17/18 08:19 Anion Gap 15 mmol/L 02/17/18 08:19 BUN 19 mg/dL (9-20) 02/17/18 08:19 Creatinine 0.52 mg/dL (0.66-1.25) L 02/17/18 08:19 Est GFR (CKD-EPI)AfAm >90 (>60 ml/min/1.73 sqM) 02/17/18 08:19 Est GFR (CKD-EPI)NonAf >90 (>60 ml/min/1.73 sqM) 02/17/18 08:19 Glucose 157 mg/dL (74-99) H 02/17/18 08:19 Plasma Lactic Acid Petey 1.4 mmol/L (0.7-2.0) 02/14/18 16:35 Calcium 9.1 mg/dL (8.4-10.2) 02/17/18 08:19 Total Bilirubin 0.5 mg/dL (0.2-1.3) 02/15/18 13:25 AST 20 U/L (17-59) 02/15/18 13:25 ALT 24 U/L (21-72) 02/15/18 13:25 Alkaline Phosphatase 93 U/L (38-126) 02/15/18 13:25 Total Protein 7.5 g/dL (6.3-8.2) 02/15/18 13:25 Albumin 3.9 g/dL (3.5-5.0) 02/15/18 13:25 Urine Color Yellow 02/15/18 08:25 Urine Appearance Clear (Clear) 02/15/18 08:25 Urine pH 6.5 (5.0-8.0) 02/15/18 08:25 Ur Specific [place] 1.013 (1.001-1.035) 02/15/18 08:25 Urine Protein Negative (Negative) 02/15/18 08:25 Urine Glucose (UA) Negative (Negative) 02/15/18 08:25 Urine Ketones Negative (Negative) 02/15/18 08:25 Urine Blood Negative (Negative) 02/15/18 08:25 Urine Nitrite Negative (Negative) 02/15/18 08:25 Urine Bilirubin Negative (Negative) 02/15/18 08:25 Urine Urobilinogen <2.0 mg/dL (<2.0) 02/15/18 08:25 Ur Leukocyte Esterase Negative (Negative) 02/15/18 08:25 Hepatitis A IgM Ab Non-Reactive (Non-Reactive) 02/16/18 07:42 Hepatitis A Ab Total Non-Reactive (Non-Reactive) 02/16/18 07:42 Hep Bs Antigen Non-Reactive (Non-Reactive) 02/16/18 07:42 Hep Bs Antibody Reactive (Non-Reactive) H 02/16/18 07:42 Hep Bs Antibody, Quant 40.9 mIU/mL 02/16/18 07:42 Hep B Core Total Ab Non-Reactive (Non-Reactive) 02/16/18 07:42 Hep B Core IgM Ab Non-Reactive (Non-Reactive) 02/16/18 07:42 Hep C IgG Ab Reactive (Non-Reactive) H 02/16/18 07:42 HIV-1 Antibody Non-Reactive (Non-Reactive) 02/16/18 07:42 HIV Ag/Ab Interpret (()) 02/16/18 07:42 HIV p24 Antibody Non-Reactive (Non-Reactive) 02/16/18 07:42 HIV-2 Antibody Non-Reactive (Non-Reactive) 02/16/18 07:42 HIV P24 Antigen Non-Reactive (Non-Reactive) 02/16/18 07:42 Microbiology 02/15/18 19:00 Neck Anaerobic Culture - Final Anaerobic Gm Negative Bacilli 02/14/18 16:35 Blood Blood Culture - Preliminary No Growth after 96 hours 02/15/18 19:00 Neck Gram Stain - Preliminary 02/15/18 19:00 Neck Wound Culture - Preliminary Eikenella species Alpha Hemolytic Streptococcus Assessment and Plan (1) Failure of outpatient treatment Status: Acute Code(s): Z78.9 - OTHER SPECIFIED HEALTH STATUS SNOMED Code(s) : 824111599 (2) Leukocytosis Status: Acute Code(s): D72.829 - ELEVATED WHITE BLOOD CELL COUNT, UNSPECIFIED SNOMED Code(s): 672517240 (3) Neck abscess Narrative/Plan: 32-year-old male who has a history of injection drug use stopping about one month ago after his stay in rehab and is now residing in a [facility] house. Patient relates that he has had the sudden onset the patient is going to the left side of his neck. Was cared for at an outside hospital. They great difficulty with IV access and eventually was transitioned to oral antibiotic therapy and discharged to home. He was on oral hepatic therapy at the hospital and failed to improve. He has a presented to emergency center and has been admitted. He is evaluated by ENT surgery and Gen. surgery, surgical plan is awaited. The patient has very limited intravenous access and consequently will utilize the most effective antibiotic therapy with the least amount of toxicity to the veins. Consequently vancomycin is transitioned to daptomycin, and ertapenem will be utilized for coverage of the anaerobes and gram-negative organisms that are potential. The patient does have multiple poor teeth which are the potential source of the current abscess. He has a history of MRSA and consequently prudent to ensure this is covered. He believes he is up-to-date on his tetanus vaccine. We'll need protein supplements to help with his healing process. Multivitamin with zinc will also be added in the morning. IV access is of great difficulty, patient requesting a PICC line which is not advisable however a short-term midline catheter can be arranged 02/16/2018 patient is much improved had the bedside incision and drainage of large abscess. He has much less uncomfortable. The patient last injected into his neck greater than a month ago when he was still actively injecting. It appears to be somewhat remote but still a potential etiology but does have carious teeth is not a potential for the significant area of abscess. There is no notation of any further surgical plans. Clinically much improved. Midline placed for his antibiotic therapy while he is here. 02/17/2018 patient had difficulty with his midline catheter, had to be replaced today. Is receiving some IV fluids to keep it patent. Patient fortunately is having a marked improvement with the current antibiotic therapy. HIV is negative. Hepatitis C is positive. Will need outpatient follow-up after his stay at rehab. Once cultures are finalized within have to construct the plan of outpatient antibiotic therapy, fortunately is much improved at this time. 02/18/2018 patient is now doing considerably better. He is swelling without any difficulties. Pain in the neck has done very resolved. He's having no fevers or chills with blood cell count has normalized. He is ready for discharge to home. He will be discharged to a [facility] to receive his ongoing rehab. [place] robotic therapy we discussed his difficulty with Augmentin. Apparently he is a child he had a fever. He has taken penicillin and amoxicillin throughout the years with no difficulties. Consequently we will go with Augmentin first dose now and if he tolerates it well as expected antibiotic is sent to the local pharmacy. He will discharged home and follow- up in the office if he has any further difficulties. Status: Acute Code(s): L02.11 - CUTANEOUS ABSCESS OF NECK SNOMED Code(s): 5081131
== END 2018-02-18 15:27 | disposition home or self-care (01) | DRG 872 ==
LOC: EC 16:01 → 4MS4W 19:15
PROVIDERS: ADMIT Family Medicine; ATTEND Family Medicine
PROC: 0J953ZZ Drainage of Left Neck Subcutaneous Tissue and Fascia, Percutaneous Approach (ICD-10-PCS; principal; 2018-02-15)
DX: A40.0 Sepsis due to streptococcus, group A (principal); L02.11 Cutaneous abscess of neck; F33.2 Major depressive disorder, recurrent severe without psychotic features; L03.221 Cellulitis of neck; E87.5 Hyperkalemia; F41.9 Anxiety disorder, unspecified; F17.200 Nicotine dependence, unspecified, uncomplicated; B19.20 Unspecified viral hepatitis C without hepatic coma; F11.11 Opioid abuse, in remission; F12.10 Cannabis abuse, uncomplicated; R63.6 Underweight; B96.89 Other specified bacterial agents as the cause of diseases classified elsewhere; Z71.6 Tobacco abuse counseling; Z86.14 Personal history of Methicillin resistant Staphylococcus aureus infection; Z82.0 Family history of epilepsy and other diseases of the nervous system; Z79.899 Other long term (current) drug therapy; Z88.0 Allergy status to penicillin; Z88.2 Allergy status to sulfonamides
CPT/HCPCS: 0; 36415; 70491; 80048; 80053; 80074; 81003; 83605; 85025; 86704; 86706; 86708; 86803; 87040; 87070; 87075; 87077; 87186; 87205; 87340; 87390; 87521; 96365; 96367; 96375; 99284

== ENCOUNTER 2018-02-23 21:34 | Emergency (ER) | payer OTHER ==
[2018-02-24] MEDS ORDERED: ONDANSETRON 4 MG/2 ML VIAL IVP STA (00:41)
[2018-02-24] MEDS ORDERED: SODIUM CHLORIDE 0.9% 1,000 ML IV STA (00:41)
[2018-02-24] MEDS ORDERED: DIPHENOX-ATROP 2.5-0.025 MG 1 EACH TAB PO STA (00:52)
[2018-02-24] MEDS ORDERED: LORazepam 2 MG/ML INJ IV STA (00:53)
--- NOTE | 2018-02-24 00:55 | ED ---
General Adult HPI - General Chief complaint: Nausea/Vomiting/Diarrhea Stated complaint: med refill/Suboxone Time Seen by Provider: 02/24/18 00:28 Source: patient, RN notes reviewed, old records reviewed Mode of arrival: ambulatory Limitations: no limitations - History of Present Illness Initial comments: 32-year-old male presenting with nausea vomiting and diarrhea. Patient has been 5 days without his Suboxone. He was dropped from the clinic secondary to using marijuana. He has been having significant diarrhea as well as vomiting. He also admits to feeling very anxious. He has been hearing voices and sounds. No suicidal ideation or plan. Patient states he has not slept in the past 4 days. He's been unable to eat anything significant for the past several days as well.No specific pain complaints. No abdominal pain. No chest pain. - Related Data Home Medications Medication Instructions Recorded Confirmed [id number]-[id number] [phone] 2 tab PO Q6H PRN 02/15/18 02/15/18 [Excedrin] Previous Rx's Medication Instructions Recorded Venlafaxine HCl ER [Effexor XR] 150 mg PO DAILY #30 cap.er.24h 01/28/18 busPIRone HCl [Buspar] 10 mg PO BID #60 tab 01/28/18 Acetaminophen Tab [Tylenol] 650 mg PO Q6HR PRN tab 02/18/18 Amoxic-Pot Clav 875-125Mg 1 tab PO Q12HR #14 tablet 02/18/18 [Augmentin 875-125] Nicotine 14Mg/24Hr Patch [Habitrol] 1 patch TRANSDERM DAILY #20 patch 02/18/18 Allergies Allergy/AdvReac Type Severity Reaction Status Date / Time amoxicillin trihydrate Allergy Unknown Verified 02/23/18 21:50 [From Augmentin] potassium clavulanate Allergy Unknown Verified 02/23/18 21:50 [From Augmentin] sulfamethoxazole Allergy Rash/Hives Verified 02/23/18 21:50 [From Bactrim] trimethoprim [From Bactrim] Allergy Rash/Hives Verified 02/23/18 21:50 Review of Systems ROS Statement: Those systems with pertinent positive or pertinent negative responses have been documented in the HPI. ROS Other: All systems not noted in ROS Statement are negative. Past Medical History Past Medical History: No Reported History Additional Past Medical History / Comment(s): Hepatitis C, opiate dependance History of Any Multi-Drug Resistant Organisms: MRSA Date of last positivie culture/infection: 02/26/17 MDRO Source:: foot Past Surgical History: Orthopedic Surgery Additional Past Surgical History / Comment(s): Arthroscopy left shoulder Past Anesthesia/Blood Transfusion Reactions: No Reported Reaction Past Psychological History: Anxiety, Depression Smoking Status: Current every day smoker Past Alcohol Use History: Occasional Past Drug Use History: Marijuana, Opiates, Prescription Drug Abuse - Past Family History Mother Additional Family Medical History / Comment(s): Manic Depressive, Addiction Hx Father Family Medical History: Seizure Disorder Additional Family Medical History / Comment(s): Anxiety Daughter(s) Family Medical History: No Reported History General Exam Limitations: no limitations General appearance: alert, in no apparent distress Head exam: Present: atraumatic, normocephalic Eye exam: Present: normal appearance, PERRL, EOMI ENT exam: Present: normal exam Neck exam: Present: normal inspection. Absent: tenderness, meningismus Respiratory exam: Present: normal lung sounds bilaterally. Absent: respiratory distress, wheezes Cardiovascular Exam: Present: regular rate, normal rhythm GI/Abdominal exam: Present: soft. Absent: distended, tenderness Extremities exam: Present: normal inspection, normal capillary refill. Absent: pedal edema Back exam: Present: normal inspection, full ROM. Absent: tenderness Neurological exam: Present: alert, oriented X3, CN II-XII intact. Absent: motor sensory deficit Course Vital Signs 02/23/18 02/24/18 21:48 01:13 Temperature 97.7 F Pulse Rate 98 81 Respiratory 20 18 Rate Blood Pressure 134/74 137/84 O2 Sat by Pulse 99 99 Oximetry - Reevaluation(s) Reevaluation #1: 02/24/18 02:27 On reevaluation, patient is feeling somewhat better. He states he normally gets methadone and believes that if he doesn't get his methadone he will commit suicide. He is voicing suicidal thoughts. He will be evaluated by EPS for suicidal ideation. 02/24/18 02:42 02/24/18 05:08 Patient evaluated by EPS nurse. When he was told that he would not receive any methadone or opiate pain medication he began to deny any suicidal ideation. Patient's behavior is consistent more with opiate withdrawal and drug seeking behavior then suicidal ideation. Medical Decision Making - Medical Decision Making 32-year-old male presenting with nausea vomiting diarrhea, concern for opiate withdrawal. Laboratory studies are obtained, patient does have mild leukocytosis consistent with vomiting. No nitrite abnormality. X-ray is negative. Vital signs are stable. On reevaluation patient does voice suicidal ideation. He was medically cleared and will be evaluated by EPS. He is evaluated by EPS, cleared for outpatient follow-up. 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 Vitals remained stable. Laboratory studies are unremarkable. He will be discharged home with outpatient follow-up. - Lab Data Result diagrams: 02/24/18 01:00 02/24/18 01:00 Lab Results 02/24/18 02/24/18 Range/Units 01:00 01:00 WBC 13.0 H (3.8-10.6) k/uL RBC 4.86 (4.30-5.90) m/uL Hgb 12.5 L (13.0-17.5) gm/dL Hct 39.5 (39.0-53.0) % MCV 81.3 (80.0-100.0) fL MCH 25.6 (25.0-35.0) pg MCHC 31.5 (31.0-37.0) g/dL RDW 14.1 (11.5-15.5) % Plt Count 508 H (150-450) k/uL Neutrophils % 59 % Lymphocytes % 32 % Monocytes % 4 % Eosinophils % 3 % Basophils % 0 % Neutrophils # 7.7 (1.3-7.7) k/uL Lymphocytes # 4.2 (1.0-4.8) k/uL Monocytes # 0.5 (0-1.0) k/uL Eosinophils # 0.3 (0-0.7) k/uL Basophils # 0.1 (0-0.2) k/uL Sodium 140 (137-145) mmol/L Potassium 4.3 (3.5-5.1) mmol/L Chloride 105 (98-107) mmol/L Carbon Dioxide 20 L (22-30) mmol/L Anion Gap 15 mmol/L BUN 9 (9-20) mg/dL Creatinine 0.60 L (0.66-1.25) mg/dL Est GFR (CKD-EPI)AfAm >90 (>60 ml/min/1.73 sqM) Est GFR (CKD-EPI)NonAf >90 (>60 ml/min/1.73 sqM) Glucose 82 (74-99) mg/dL Calcium 9.9 (8.4-10.2) mg/dL Total Bilirubin 0.4 (0.2-1.3) mg/dL AST 27 (17-59) U/L ALT 29 (21-72) U/L Alkaline Phosphatase 119 (38-126) U/L Total Protein 7.6 (6.3-8.2) g/dL Albumin 4.3 (3.5-5.0) g/dL Amylase 49 (30-110) U/L Lipase 37 (23-300) U/L Disposition Clinical Impression: Opioid use disorder, severe, dependence, Withdrawal from opioids, Major depressive disorder, recurrent severe without psychotic features Disposition: HOME SELF-CARE Condition: Fair Instructions: Acute Nausea and Vomiting (ED), Acute Diarrhea (ED), Opioid Withdrawal (ED) Is patient prescribed a controlled substance at d/c from ED?: No Referrals: Alexandru Louie MD [Primary Care Provider] - 1-2 days Time of Disposition: 05:11
[2018-02-24 01:14] VITALS: RESP 18
[2018-02-24 01:14] LABS: Basophils # (A) 0.1 k/uL (0-0.2); Basophils % (A) 0 %; Eosinophils # (A) 0.3 k/uL (0-0.7); Eosinophils % (A) 3 %; HCT 39.5 % (39.0-53.0); HGB 12.5 gm/dL (13.0-17.5); Lymphocytes # (A) 4.2 k/uL (1.0-4.8); Lymphocytes % (A) 32 %; MCH 25.6 pg (25.0-35.0); MCHC 31.5 g/dL (31.0-37.0); MCV 81.3 fL (80.0-100.0); Monocytes # (A) 0.5 k/uL (0-1.0); Monocytes % (A) 4 %; Neutrophils # (A) 7.7 k/uL (1.3-7.7); Neutrophils % (A) 59 %; Platelet Count 508 k/uL (150-450); RBC 4.86 m/uL (4.30-5.90); RDW 14.1 % (11.5-15.5)
[2018-02-24 01:23] LABS: ALT 29 U/L (21-72); AST 27 U/L (17-59); Albumin 4.3 g/dL (3.5-5.0); Alkaline Phosphatase 119 U/L (38-126); Amylase 49 U/L (30-110); Anion Gap 15 mmol/L; Blood Urea Nitrogen 9 mg/dL (9-20); Calcium 9.9 mg/dL (8.4-10.2); Carbon Dioxide 20 mmol/L (22-30); Chloride 105 mmol/L (98-107); Glucose 82 mg/dL (74-99); Lipase 37 U/L (23-300); Potassium 4.3 mmol/L (3.5-5.1); Sodium 140 mmol/L (137-145); Total Bilirubin 0.4 mg/dL (0.2-1.3); Total Protein 7.6 g/dL (6.3-8.2)
--- NOTE | 2018-02-24 01:58 | XR ---
EXAMINATION TYPE: XR KUB DATE OF EXAM: 02/24/2018 COMPARISON: NONE HISTORY: Pain TECHNIQUE: 2 views FINDINGS: There is no sign of intestinal obstruction or pneumoperitoneum. Fecal pattern is normal. Th ere are no pathologic calcifications. Bowel gas pattern appears normal. IMPRESSION: Nonacute abdomen. No change.
[2018-02-24 05:27] VITALS: BP 137/88; PULSE 86; TEMP 98.3
== END 2018-02-24 05:27 | disposition home or self-care (01) ==
LOC: EC 21:34
DX: F11.23 Opioid dependence with withdrawal (principal); F33.9 Major depressive disorder, recurrent, unspecified; R45.851 Suicidal ideations; F17.200 Nicotine dependence, unspecified, uncomplicated; Z86.14 Personal history of Methicillin resistant Staphylococcus aureus infection; Z86.19 Personal history of other infectious and parasitic diseases; Z88.0 Allergy status to penicillin; Z88.1 Allergy status to other antibiotic agents; Z88.2 Allergy status to sulfonamides
CPT/HCPCS: 99285; 96374; 96375; 96361 ×4; 82075; 36415; 80053; 82150; 83690; 85025; 74018; J2060; J2405

== ENCOUNTER 2018-02-25 03:43 | Emergency (ER) | payer OTHER ==
[2018-02-25 03:53] VITALS: TEMP 98.5
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
--- NOTE | 2018-02-25 04:54 | CT ---
EXAM: CT Head Without Intravenous Contrast CLINICAL HISTORY: CT Reason: seizure TECHNIQUE: Axial computed tomography images of the head/brain without intravenous contrast. CTDI is 57.40 mGy and DLP is 995.50 mGy-cm. This CT exam was performed using one or more of the following dose reduction techniques: automated exposure control, adjustment of the mA and/or kV according to patient size, and/or use of iterative reconstruction technique. COMPARISON: No relevant prior studies available. FINDINGS: Brain: There is periventricular and subcortical white matter hypodense changes noted. No hemorrhage. Ventricles: Unremarkable. No ventriculomegaly. Bones/joints: Unremarkable. No acute fracture. Soft tissues: Unremarkable. Sinuses: Unremarkable as visualized. No acute sinusitis. Mastoid air cells: Unremarkable as visualized. No mastoid effusion. IMPRESSION: No acute intracranial process. Periventricular and subcortical deep white matter changes noted which are atypical for microvascular disease in a patient of this age group. If there is concern for a demyelinating process causing clinical symptoms, MRI with contrast is suggested.
[2018-02-25 05:42] VITALS: BP 137/79; PULSE 84; RESP 16
== END 2018-02-25 05:42 | disposition home or self-care (01) ==
LOC: EC 03:43
DX: R56.9 Unspecified convulsions (principal); F17.200 Nicotine dependence, unspecified, uncomplicated; Z86.14 Personal history of Methicillin resistant Staphylococcus aureus infection; Z86.19 Personal history of other infectious and parasitic diseases; Z88.0 Allergy status to penicillin; Z88.1 Allergy status to other antibiotic agents; Z88.2 Allergy status to sulfonamides
CPT/HCPCS: 70450; 93005; 99285

== ENCOUNTER 2018-03-03 21:11 | Observation (INO) | payer OTHER ==
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
[2018-03-03] MEDS ORDERED: METOCLOPRAMIDE 5 MG/ML 2 ML VIAL IVP STA (23:02)
[2018-03-03] MEDS ORDERED: SODIUM CHLORIDE 0.9% 1,000 ML IV ONE (23:02)
[2018-03-03] MEDS ORDERED: diphenhydrAMINE 50 MG/ML 1 ML VIAL IVP STA (23:02)
[2018-03-03 23:11] LABS: Basophils % (A) 0 %; Eosinophils # (A) 0.3 k/uL (0-0.7); Eosinophils % (A) 4 %; HCT 39.5 % (39.0-53.0); HGB 12.8 gm/dL (13.0-17.5); Lymphocytes # (A) 3.4 k/uL (1.0-4.8); Lymphocytes % (A) 40 %; MCH 25.7 pg (25.0-35.0); MCHC 32.4 g/dL (31.0-37.0); MCV 79.4 fL (80.0-100.0); Mean Platelet Volume 7.9; Monocytes # (A) 0.4 k/uL (0-1.0); Monocytes % (A) 5 %; Neutrophils # (A) 4.1 k/uL (1.3-7.7); Neutrophils % (A) 49 %; Platelet Count 314 k/uL (150-450); RBC 4.97 m/uL (4.30-5.90); RDW 14.2 % (11.5-15.5); WBC 8.3 k/uL (3.8-10.6)
[2018-03-03 23:23] LABS: ALT 16 U/L (21-72); AST 22 U/L (17-59); Albumin 4.2 g/dL (3.5-5.0); Alkaline Phosphatase 86 U/L (38-126); Anion Gap 11 mmol/L; Blood Urea Nitrogen 13 mg/dL (9-20); Calcium 9.6 mg/dL (8.4-10.2); Carbon Dioxide 28 mmol/L (22-30); Chloride 103 mmol/L (98-107); Glucose 60 mg/dL (74-99); Potassium 4.3 mmol/L (3.5-5.1); Sodium 142 mmol/L (137-145); Total Bilirubin 0.2 mg/dL (0.2-1.3); Total Protein 7.3 g/dL (6.3-8.2)
[2018-03-03] MEDS ORDERED: NALOXONE 0.4 MG/ML 1 ML VIAL IV PRN (23:46)
[2018-03-04 00:15] LABS: Appearance,Urine Clear (Clear); Bilirubin,Urine Negative (Negative); Blood,Urine Negative (Negative); Color,Urine Yellow; Glucose,Urine (UA) Negative (Negative); Ketones,Urine Negative (Negative); Leukocyte Esterase,Urine Negative (Negative); Nitrite,Urine Negative (Negative); PH, Urine 6.5 (5.0-8.0); Protein,Urine Negative (Negative); Specific Gravity,Urine 1.008 (1.001-1.035); Urobilinogen,Urine <2.0 mg/dL (<2.0)
[2018-03-04 00:27] LABS: Amphetamine Screen,Urine Not Detected (NotDetected); Barbiturate Screen,Urine Not Detected (NotDetected); Benzodiazepines Screen,Urine Not Detected (NotDetected); Cocaine Screen,Urine Detected (NotDetected); Methadone Screen, Urine Not Detected (NotDetected); Opiate Screen,Urine Detected (NotDetected); Oxycodone Screen, Urine Not Detected (NotDetected); Phencyclidine Screen,Urine Not Detected (NotDetected); Tricyclic Antidepressant,Urine Not Detected (NotDetected); Urn Cannabinoid Scrn Not Detected (NotDetected)
[2018-03-04] MEDS ORDERED: LORazepam 2 MG/ML INJ IV PRN (00:35)
[2018-03-04] MEDS: VENLAFAXINE HCL ER 150 MG CAP PO SCH (10:07)
[2018-03-04] MEDS: busPIRone HCl 10 MG TAB PO SCH ×2 (10:07→20:07)
[2018-03-04 10:15] VITALS: BMI 18.3
[2018-03-04] MEDS: NICOTINE 21MG/24HR PATCH TRANSDERM SCH (13:36)
--- NOTE | 2018-03-04 14:18 | P.CN ---
Psychiatric Consult - . Consult date: 03/04/18 Consult:: 03/04/18 13:56 Identification: Patient is a 32-year-old male who presented to the emergency room reporting that he was having seizures. Reason for Consult: Medication management History of Present Illness: Patient's chart was reviewed, the patient was seen and interviewed in his room no family members were present. Patient states that he came to the hospital because he had a seizure and he had recently been in the emergency room after his friends had dropped him off stating that he had a seizure. When I asked the patient if he had gone to his intake appointment at [facility] on February 10 as had been scheduled when he was discharged from the psychiatric unit on January 28 he said he went earlier that the appointment was moved forward but was unable to tell me when it was moved forward to and states that he was there for 10 days and transferred to the [facility] for an infection in his neck. Patient states that he was then sent here for further treatment of his neck infection. Patient states that he has been receiving Suboxone from his primary care physician as well has continued to take Effexor 150 mg extended release in the morning and BuSpar 10 mg twice a day that was prescribed on discharge from the inpatient psychiatric unit. He reports that he thinks that it is been fairly helpful to him and that he is not feeling suicidal, is feeling slightly depressed but reports no symptoms of anxiety. He states that he has been on other medications in the past and feels that this has been the most effective for him. Patient has no outpatient psychiatric follow-up at this time stating that it was never set up when he left [facility]. Patient had been admitted to the inpatient psychiatric unit for withdrawing from opiates which she reported typically induced acute suicidal ideation. He at that time states that he had been off of the Suboxone and had been off of opiates for 2-3 days. He reported feeling suicidal, depressed and was concerned that he might act on his thoughts. He had been off of his Effexor and BuSpar at that time for one month. Patient was admitted and restarted on his medications and discharged with follow-up to [facility] on February 10. Patient states that he is primary care physician has been prescribing his Suboxone, he then stated to me that his Suboxone had disappeared from where he was staying at a friend's house and then stated that 4 days ago was the last dose that he's taken of Suboxone. When I asked the patient if he was using any other drugs he initially said no, but then stated to him that his drug screen was positive for cocaine and he stated that he's been using IV cocaine and heroin. He states that he's been using cocaine every 2-4 days and states that he has been using IV heroin as well as using [facility]. Past Psychiatric History: Patient has 2 prior admissions his first at the age of 16 to [facility]. Patient has attempted suicide in the past a significant one being in 2011 when he reports that he took alcohol and Xanax and was in a coma for several weeks. Patient states that he has been on multiple medications in the past including Paxil, Zoloft Prozac Abilify Seroquel lithium and Wellbutrin as well as being treated with Concerta and Adderall. Patient reports the best response to Effexor and BuSpar. Patient has been to inpatient drug rehab on 3 occasions in the past. Past Medical/Surgical History: Patient has a history of hepatitis C, glaucoma and status post hip fracture. He states he is been treated for an abscess on his neck recently. Family History: Patient states that his mother has been treated for depression and anxiety, he is unaware of any completed suicides in the family and denies any alcohol or drug use disorders in the family Social History: Patient was born and raised in [place] his parents are alive and he has no siblings. He completed high school and went on to obtain an associates degree. He states that he is and has a daughter who is 2 years of age. Patient states he has no contact with her. He can cannot tell me when he last worked but he thinks it was in early December or late December. He states that he has no place to live and has been living in the [facility], when he was discharged from the hospital he was to go to a long term. Patient is not on Social Security disability. Substance Use History: Patient states that he does not use alcohol. Patient has a history of cocaine use, IV heroin use, opiate at use states that he used to use benzodiazepines in the past. He denies any amphetamine use and states that he has not been using any marijuana. Patient is supposed to be on Suboxone but states that his prescription disappeared when he was at a friend's house. Legal History: Patient has been arrested for retail fraud Mental status:Appearance/Attitude: Patient is sitting up in a hospital bed, appears slightly fidgety, makes intermittent eye contact and is cooperative Behavior: Patient does not exhibit any psychomotor agitation or retardation although the patient appeared fidgety during the interview Speech/Language: Patient's speech was spontaneous and normal volume and rhythm and he was coherent Thought Process: Patient was goal-directed there is no evidence of loose associations or flight of ideas Thought Content: Patient denies any auditory or visual hallucinations and no delusions or paranoid ideation were elicited. Patient states that he is feeling depressed occasionally but states that he has been taking his medications. Patient states that he came to the hospital for seizures. Patient states that he's been living in the [facility] and has not been sleeping or eating well. Suicidal/Homicidal Ideation: Patient denies any current suicidal or homicidal ideation. Sensorium/Cognition: Patient is alert and oriented to person, place, situation and date and his recent and remote memory are grossly intact Mood/Affect: Patient's mood is slightly anxious and his affect is appropriate to his mood Insight/Judgment: Patient's insight and judgment are fair. Assessment: Patient presents with complaints of a seizure disorder, patient was admitted to the inpatient psychiatric unit from January 26 to the and was placed on Effexor 150 mg extended release and BuSpar 10 mg twice a day and was to have an intake appointment at [facility] on February 10. Patient states that he went to [facility] for 10 days because the intake appointment date was moved up, however this seems unlikely as the patient was in our emergency room on February 02, was in the emergency room on February 14 stating that he had been released from [place] after being treated there for the abscess on his neck. Patient has been in the emergency room on February 24 and , for complaints of opiate withdrawal nausea and vomiting and seizures. Patient's UDS on admission was positive for opiates and cocaine in the patient states he's been using [facility], as well as IV heroin and cocaine. Patient states he has been taking his medications since his discharge, stating that his primary care physician has been prescribing him. Patient also states that his most recent prescription of Suboxone, the majority of it disappeared at a friend's house. I did a MAPS on the patient patient filled a prescription for Suboxone on February 25 #60 and his prior prescription was filled on 10/21/2017. Patient is currently not expressing any symptoms of depression, no current suicidal or homicidal ideation and there is no evidence of a psychotic process. 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 Patient's prescriptions for Suboxone were filled most recently in January on the and he had no prior prescriptions filled since 10/21/2017. It seems unlikely to me that the patient was at [facility] for 10 days given the number of visits that he is had to the emergency room in the month of January, when the patient is ready for discharge I would recommend referral again for inpatient drug rehab. Patient acknowledges that he's been using IV heroin and cocaine as well as [facility], claiming that his Suboxone prescription disappeared from his friend's house. I would also recommend a referral for outpatient psychiatric services. Patient does not require inpatient psychiatric admission. I will sign off the case if there are any further questions or concerns please don't hesitate to contact me
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
[2018-03-04] MEDS: NON-FORMULARY DRUG (Buprenorphine Hcl/Naloxone Hcl [Suboxone 8 Mg-2 Mg Sl Film] 1 FILM) SL SCH (17:44)
[2018-03-04] MEDS ORDERED: LORazepam 1 MG TAB PO PRN (18:41)
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
[2018-03-04] MEDS ORDERED: ONDANSETRON 4 MG TAB PO PRN (20:53)
[2018-03-05] MEDS: NON-FORMULARY DRUG (Buprenorphine Hcl/Naloxone Hcl [Suboxone 8 Mg-2 Mg Sl Film] 1 FILM) SL SCH ×3 (02:35→20:41)
[2018-03-05] MEDS: VENLAFAXINE HCL ER 150 MG CAP PO SCH (08:42)
[2018-03-05] MEDS: busPIRone HCl 10 MG TAB PO SCH ×2 (08:42→20:40)
[2018-03-05] MEDS: NICOTINE 21MG/24HR PATCH TRANSDERM SCH (08:42)
[2018-03-05] MEDS ORDERED: IBUPROFEN 400 MG TAB PO PRN (08:51)
[2018-03-05] MEDS: FAMOTIDINE 20 MG TAB PO SCH ×2 (09:42→20:41)
[2018-03-05] MEDS: ACETAMINOPHEN TAB 325 MG TAB PO PRN (13:57)
[2018-03-05] MEDS ORDERED: LORazepam 2 MG/ML INJ IM PRN ×3 (14:34)
[2018-03-05] MEDS ORDERED: THIAMINE 100 MG/ML 2 ML VIAL IM STA (14:39)
[2018-03-05] MEDS ORDERED: LORazepam 1 MG TAB PO STA (14:58)
[2018-03-05] MEDS ORDERED: LORazepam 1 MG TAB PO PRN (15:26)
[2018-03-05] MEDS: MORPHINE SULFATE IR 15 MG TABLET PO PRN ×2 (16:22→21:37)
--- NOTE | 2018-03-05 19:15 | P.PN ---
Subjective 32-year-old presently admitted for seizures, his history is inconsistent, patient is having opiate withdrawals. Patient was started on morphine patient is unable to complete EEG because of his excessive sweating. Discussed his case with the psychiatrist. Patient was having excessive lacrimation diarrhea excessive sweating although patient doesn't have any pupillary dilatation. Objective - Vital Signs Vital signs: Vital Signs Temp 98.5 F 03/05/18 07:00 Pulse 61 03/05/18 07:00 Resp 18 03/05/18 07:00 BP 130/82 03/05/18 07:00 Pulse Ox 100 03/05/18 07:00 Intake & Output 03/05/18 03/05/18 03/06/18 06:59 18:59 06:59 Intake Total 580 Balance 580 Intake: Oral 580 Other: Voiding Method Toilet # Voids 1 2 - Exam PHYSICAL EXAMINATION: GENERAL: The patient is alert and oriented x3, not in any acute distress. Well developed, well nourished. Patient to symptoms of opiate withdrawal are better by the time I evaluated the patient HEENT: Pupils are round and equally reacting to light. EOMI. No scleral icterus. No conjunctival pallor. Normocephalic, atraumatic. No pharyngeal erythema. No thyromegaly. CARDIOVASCULAR: S1 and S2 present. No murmurs, rubs, or gallops. PULMONARY: Chest is clear to auscultation, no wheezing or crackles. ABDOMEN: Soft, nontender, nondistended, normoactive bowel sounds. No palpable organomegaly. MUSCULOSKELETAL: No joint swelling or deformity. EXTREMITIES: No cyanosis, clubbing, or pedal edema. NEUROLOGICAL: Gross neurological examination did not reveal any focal deficits. SKIN: No rashes. - Labs CBC & Chem 7: 03/03/18 22:40 03/03/18 22:40 Assessment and Plan Plan: -Possibly of seizures: Neurology will evaluated the patient patient is on when necessary Ativan for that there is no clear-cut evidence but patient has seizures because of which we need to obtain EEG and therapeutic decision should be based on that. -Opiate withdrawal: Management as mentioned above -history of IV drug use in the past and will need to follow with [place] drug rehab[facility] program -History of hepatitis C Will need to follow with Gastro-enterology as an outpatient History of seizures in the past -Depression patient will be continued on antidepressants -Nicotine abuse: Counseling was provided
--- NOTE | 2018-03-05 20:05 | P.PN ---
Subjective Progress Note Date: 03/05/18 This patient is a 32-year-old male who was admitted to hospital for evaluation of seizure disorder and opiate abuse. He was seen by psychiatry yesterday. Patient is recommended to undergo drug rehabilitation at [place] once he is discharged. Patient was unable to perform his EEG today apparently due to excessive sweating. The electrodes were not staying in place. We will reattempt to do the EEG tomorrow. Patient has not had any other new findings and has not had any further seizure activity since admission. Patient was given morphine today which did help reduce the degree of sweating he was experiencing. He is being closely monitor for withdrawal syndrome. We would like to review his EEG very closely before considering whether to place him on any anticonvulsant therapy. As noted by Dr. So his history is very inconsistent as to the type of seizures he has been having. We will continue to follow his progress closely during this admission. Objective - Vital Signs Vital signs: Vital Signs Temp 97.5 F L 03/05/18 19:44 Pulse 93 03/05/18 19:44 Resp 16 03/05/18 19:44 BP 145/91 03/05/18 19:44 Pulse Ox 97 03/05/18 19:44 Intake & Output 03/05/18 03/05/18 03/06/18 06:59 18:59 06:59 Intake Total 580 Balance 580 Intake: Oral 580 Other: Voiding Method Toilet # Voids 1 2 - Exam Physical examination: PHYSICAL EXAMINATION: Patient is resting comfortably in bed. VITAL SIGNS: Blood pressure is [145/91]. Heart rate is [93]. Respiration is [16] . Temperature is [97.5]. HEENT: Head is atraumatic, neck is supple, there were no carotid bruits. CHEST: Lungs are clear to auscultation and percussion. CARDIAC: S1, S2 normal rate and rhythm. There is no murmur. ABDOMEN: Soft and nontender. Bowel sounds are present. EXTREMITIES: There is no pedal edema. Peripheral pulses are present. Neurological examination: Patient's neurological examination is nonfocal and is unchanged from yesterday. - Labs CBC & Chem 7: 03/03/18 22:40 03/03/18 22:40 Assessment and Plan (1) New onset seizure Current Visit: Yes Status: Acute Code(s): R56.9 - UNSPECIFIED CONVULSIONS SNOMED Code(s): 67447045 (2) Anxiety Current Visit: No Status: Acute Priority: Medium Code(s): F41.9 - ANXIETY DISORDER, UNSPECIFIED SNOMED Code(s): 29108319 (3) Major depressive disorder, recurrent severe without psychotic features Current Visit: No Status: Acute Priority: High Code(s): F33.2 - MAJOR DEPRESSV DISORDER, RECURRENT SEVERE W/O PSYCH FEATURES SNOMED Code(s): 17411770 (4) Opiate abuse, continuous Current Visit: No Status: Inactive Code(s): F11.10 - OPIOID ABUSE, UNCOMPLICATED SNOMED Code(s): 1929983 (5) Suicidal ideations Current Visit: No Status: Acute Code(s): R45.851 - SUICIDAL IDEATIONS SNOMED Code(s): 2201326 Plan: This patient is a 32-year-old male being evaluated for seizure disorder as well as opioid addiction. Patient was seen by psychiatry and will need to follow-up with drug rehabilitation program at [place]. Patient was unable to complete EEG today due to excessive sweating. We will consider repeat attempt tomorrow to see if this can be completed. He is being given Ativan on a as needed basis. He is being closely monitored for opiate withdrawal. Once again he would benefit from referral to the drug rehabilitation program at [place] at the time of discharge. Patient otherwise is resting comfortably. He has not had any seizure events since admission. Would continue seizure precautions for the patient. His overall prognosis at this time remains guarded.
[2018-03-05] MEDS: THIAMINE 100 MG TAB PO SCH (20:41)
--- NOTE | 2018-03-06 01:59 | CT ---
EXAMINATION TYPE: CT brain wo con DATE OF EXAM: 03/06/2018 COMPARISON: 02/25/2018 HISTORY: pt. found on bathroom floor seizure CT DLP: 1450.90 mGycm. Automated Exposure Control for Dose Reduction was Utilized. TECHNIQUE: CT scan of the head is performed without contrast. FINDINGS: There is patchy hypodensity in the periventricular white matter. There is no mass effect nor midline shift. There is no sign of intracranial hemorrhage. The calvarium is intact. CONCLUSION: There is white matter hypodensity consistent with chronic small vessel ischemia or demyelinating dise ase. This is similar to old exam. No acute intracranial abnormality.
[2018-03-06] MEDS: ACETAMINOPHEN TAB 325 MG TAB PO PRN (06:05)
[2018-03-06] MEDS: NON-FORMULARY DRUG (Buprenorphine Hcl/Naloxone Hcl [Suboxone 8 Mg-2 Mg Sl Film] 1 FILM) SL SCH (09:09)
[2018-03-06] MEDS: NICOTINE 21MG/24HR PATCH TRANSDERM SCH (09:10)
[2018-03-06] MEDS: FAMOTIDINE 20 MG TAB PO SCH ×2 (09:10→20:16)
[2018-03-06] MEDS: VENLAFAXINE HCL ER 150 MG CAP PO SCH (09:11)
[2018-03-06] MEDS: busPIRone HCl 10 MG TAB PO SCH ×2 (09:11→20:16)
[2018-03-06] MEDS ORDERED: LOPERAMIDE 2 MG CAP PO PRN (10:01)
[2018-03-06 11:26] LABS: Urine Alcohol Negative (Negative); Urine Barbiturate Negative (Negative); Urine Cocaine Negative (Negative); Urine Methadone Negative (Negative); Urine Opiates Positive (Negative); Urine Phencyclidine Negative (Negative)
[2018-03-06] MEDS: METOPROLOL TARTRATE 12.5 MG TAB PO SCH (11:41)
--- NOTE | 2018-03-06 15:18 | P.DS ---
Providers Date of admission: 03/03/18 23:46 Attending physician: Marco Sarah MD Consults: 03/03/18 23:47 Consult Physician Routine Consulting Provider: Brennon Elias Consult Reason/Comments: New onset seizures Do you want consulting provider notified?: Yes, Notify in am 03/04/18 11:47 Consult Physician Urgent Consulting Provider: Melisa Alfredo Consult Reason/Comments: med management Do you want consulting provider notified?: Yes Primary care physician: [facility] Course: 32-year-old presently admitted for seizures, his history is inconsistent, patient is having opiate withdrawals. Patient was started on morphine patient is unable to complete EEG because of his excessive sweating. Discussed his case with the psychiatrist. Patient was having excessive lacrimation diarrhea excessive sweating although patient doesn't have any pupillary dilatation. 03/06/2018 Patient was started on oral morphine for withdrawals as today although I was informed by the nursing staff patient has been apparently injecting street drugs most probably opiates and his urine drug screen is positive for cocaine as well patient has been receiving opiates here. Discussed his case with psychiatric and plan was made to symptomatically treat his opiate withdrawals with when necessary antidiarrheal medications and as needed metoprolol. Opiate withdrawals are not life-threatening because of which patient will be discharged on these medications if cleared by neurology after EEG. My suspicion is extremely low that patient had a seizure. PHYSICAL EXAMINATION: GENERAL: The patient is alert and oriented x3, not in any acute distress. Well developed, well nourished. HEENT: Pupils are round and equally reacting to light. EOMI. No scleral icterus. No conjunctival pallor. Normocephalic, atraumatic. No pharyngeal erythema. No thyromegaly. CARDIOVASCULAR: S1 and S2 present. No murmurs, rubs, or gallops.patient is bit tachycardic PULMONARY: Chest is clear to auscultation, no wheezing or crackles. ABDOMEN: Soft, nontender, nondistended, normoactive bowel sounds. No palpable organomegaly. MUSCULOSKELETAL: No joint swelling or deformity. EXTREMITIES: No cyanosis, clubbing, or pedal edema. NEUROLOGICAL: Gross neurological examination did not reveal any focal deficits. SKIN: No rashes. Assessment and Plan Plan: -Possibly of seizures: Neurology will evaluated the patient patient is on when necessary Ativan for that there is no clear-cut evidence but patient has seizures because of which we need to obtain EEG and therapeutic decision should be based on that. -Opiate withdrawal: Management as mentioned above -history of IV drug use in the past and will need to follow with [facility] -History of hepatitis C Will need to follow with Gastro-enterology as an outpatient History of seizures in the past -Depression patient will be continued on antidepressants -Nicotine abuse: Counseling was provided Patient Condition at Discharge: Stable Plan - Discharge Summary Discharge Rx Participant: Yes New Discharge Prescriptions: New Famotidine [Pepcid] 20 mg PO BID #30 tab Loperamide [Imodium] 2 mg PO QID PRN #30 cap PRN Reason: Diarrhea Metoprolol Tartrate [Lopressor] 25 mg PO BID #30 tab No Action busPIRone HCl [Buspar] 10 mg PO BID Venlafaxine HCl [Effexor XR] 150 mg PO DAILY Buprenorphine HCl/Naloxone HCl [Suboxone 8 mg-2 mg Sl Film] 1 film SL BID Discharge Medication List Buprenorphine HCl/Naloxone HCl [Suboxone 8 mg-2 mg Sl Film] 1 film SL BID [History] Venlafaxine HCl [Effexor XR] 150 mg PO DAILY 03/03/18 [History] busPIRone HCl [Buspar] 10 mg PO BID 03/03/18 [History] Famotidine [Pepcid] 20 mg PO BID #30 tab 03/06/18 [Rx] Loperamide [Imodium] 2 mg PO QID PRN #30 cap 03/06/18 [Rx] Metoprolol Tartrate [Lopressor] 25 mg PO BID #30 tab 03/06/18 [Rx] Discharge Disposition: HOME SELF-CARE
[2018-03-06] MEDS: THIAMINE 100 MG TAB PO SCH (18:18)
[2018-03-07] MEDS: METOPROLOL TARTRATE 12.5 MG TAB PO SCH (04:13)
[2018-03-07 07:52] VITALS: BP 117/80; PULSE 78; RESP 14; TEMP 98.9
--- NOTE | 2018-03-07 09:58 | P.DS ---
Providers Date of admission: 03/03/18 23:46 Attending physician: Marco Sarah MD Consults: 03/03/18 23:47 Consult Physician Routine Consulting Provider: Brennon Elias Consult Reason/Comments: New onset seizures Do you want consulting provider notified?: Yes, Notify in am 03/04/18 11:47 Consult Physician Urgent Consulting Provider: Melisa Alfredo Consult Reason/Comments: med management Do you want consulting provider notified?: Yes [facility] Course: Please refer to my discharge summary from yesterday. Patient did not have any significant withdrawals today morning apparently had some shaking yesterday please refer to the nursing documentation for an episode. And we're unable to get EEG outpatient disease is being ordered and patient will be discharged today. I signed examine the patient today. For other Medical problems and the hospitalist course please refer to my dictation of discharge summary from yesterday. PHYSICAL EXAMINATION: GENERAL: The patient is alert and oriented x3, not in any acute distress. Well developed, well nourished. HEENT: Pupils are round and equally reacting to light. EOMI. No scleral icterus. No conjunctival pallor. Normocephalic, atraumatic. No pharyngeal erythema. No thyromegaly. CARDIOVASCULAR: S1 and S2 present. No murmurs, rubs, or gallops. PULMONARY: Chest is clear to auscultation, no wheezing or crackles. ABDOMEN: Soft, nontender, nondistended, normoactive bowel sounds. No palpable organomegaly. MUSCULOSKELETAL: No joint swelling or deformity. EXTREMITIES: No cyanosis, clubbing, or pedal edema. NEUROLOGICAL: Gross neurological examination did not reveal any focal deficits. SKIN: No rashes. Patient Condition at Discharge: Stable Plan - Discharge Summary Discharge Rx Participant: Yes New Discharge Prescriptions: New Famotidine [Pepcid] 20 mg PO BID #30 tab Loperamide [Imodium] 2 mg PO QID PRN #30 cap PRN Reason: Diarrhea Metoprolol Tartrate [Lopressor] 25 mg PO BID #30 tab No Action busPIRone HCl [Buspar] 10 mg PO BID Venlafaxine HCl [Effexor XR] 150 mg PO DAILY Buprenorphine HCl/Naloxone HCl [Suboxone 8 mg-2 mg Sl Film] 1 film SL BID Discharge Medication List Buprenorphine HCl/Naloxone HCl [Suboxone 8 mg-2 mg Sl Film] 1 film SL BID [History] Venlafaxine HCl [Effexor XR] 150 mg PO DAILY 03/03/18 [History] busPIRone HCl [Buspar] 10 mg PO BID 03/03/18 [History] Famotidine [Pepcid] 20 mg PO BID #30 tab 03/06/18 [Rx] Loperamide [Imodium] 2 mg PO QID PRN #30 cap 03/06/18 [Rx] Metoprolol Tartrate [Lopressor] 25 mg PO BID #30 tab 03/06/18 [Rx] Discharge Disposition: HOME SELF-CARE
[2018-03-07] MEDS: NICOTINE 21MG/24HR PATCH TRANSDERM SCH (10:54)
[2018-03-07] MEDS: THIAMINE 100 MG TAB PO SCH (10:54)
[2018-03-07] MEDS: busPIRone HCl 10 MG TAB PO SCH (10:54)
[2018-03-07] MEDS: VENLAFAXINE HCL ER 150 MG CAP PO SCH (10:54)
[2018-03-07] MEDS: FAMOTIDINE 20 MG TAB PO SCH (10:54)
== END 2018-03-07 11:32 | disposition home or self-care (01) ==
LOC: EC 21:11 → 3SUR 23:46
PROVIDERS: ADMIT Internal Medicine; ATTEND Internal Medicine
DX: F11.23 Opioid dependence with withdrawal (principal); Z86.19 Personal history of other infectious and parasitic diseases; F17.200 Nicotine dependence, unspecified, uncomplicated; R61 Generalized hyperhidrosis; R19.7 Diarrhea, unspecified; H04.209 Unspecified epiphora, unspecified side; R45.851 Suicidal ideations; F41.9 Anxiety disorder, unspecified; F33.2 Major depressive disorder, recurrent severe without psychotic features; F14.90 Cocaine use, unspecified, uncomplicated; Z88.0 Allergy status to penicillin; Z88.2 Allergy status to sulfonamides; Z79.899 Other long term (current) drug therapy; Z82.0 Family history of epilepsy and other diseases of the nervous system; Z86.14 Personal history of Methicillin resistant Staphylococcus aureus infection
CPT/HCPCS: 99285 ×2; 96374 ×2; 96361 ×2; 96375 ×3; 36415; 00000; 80053; 85025; 81003; 80306 ×2; 70450; G0378 ×5; S4990 ×4; J1200; J2310; J2765; 0

== ENCOUNTER 2018-03-15 03:51 | Emergency (ER) | payer OTHER ==
[2018-03-15 03:57] VITALS: BP 114/65; PULSE 80; RESP 18; TEMP 98
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
== END 2018-03-15 04:09 | disposition home or self-care (01) ==
LOC: EC 03:51
DX: S90.425A Blister (nonthermal), left lesser toe(s), initial encounter (principal); F32.9 Major depressive disorder, single episode, unspecified; F41.9 Anxiety disorder, unspecified; F17.200 Nicotine dependence, unspecified, uncomplicated; Z86.19 Personal history of other infectious and parasitic diseases; Z86.14 Personal history of Methicillin resistant Staphylococcus aureus infection; Z79.891 Long term (current) use of opiate analgesic; Z79.899 Other long term (current) drug therapy; Z88.0 Allergy status to penicillin; Z88.2 Allergy status to sulfonamides
CPT/HCPCS: 99283

== ENCOUNTER 2018-03-16 01:01 | Emergency (ER) | payer OTHER ==
[2018-03-16 01:09] VITALS: BP 140/73; PULSE 88; RESP 18; TEMP 97.3
[2018-03-16] MEDS ORDERED: IBUPROFEN 600 MG TAB PO STA (01:33)
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
== END 2018-03-16 01:47 | disposition home or self-care (01) ==
LOC: EC 01:01
DX: S90.425A Blister (nonthermal), left lesser toe(s), initial encounter (principal); F19.10 Other psychoactive substance abuse, uncomplicated; F32.9 Major depressive disorder, single episode, unspecified; F41.9 Anxiety disorder, unspecified; F17.200 Nicotine dependence, unspecified, uncomplicated; Z86.14 Personal history of Methicillin resistant Staphylococcus aureus infection; Z86.19 Personal history of other infectious and parasitic diseases; Z79.891 Long term (current) use of opiate analgesic; Z79.899 Other long term (current) drug therapy; Z88.1 Allergy status to other antibiotic agents; Z88.2 Allergy status to sulfonamides
CPT/HCPCS: 99283

== ENCOUNTER 2018-03-23 00:28 | Emergency (ER) | payer OTHER ==
[2018-03-23] MEDS ORDERED: LIDOCAINE VISCOUS 2% 15 ML CUP MUCOUS MEM ONE (00:57)
[2018-03-23] MEDS ORDERED: SODIUM CHLORIDE 0.9% 1,000 ML IV STA (00:57)
[2018-03-23 03:04] LABS: Basophils # (A) 0.1 k/uL (0-0.2); Basophils % (A) 0 %; Eosinophils # (A) 0.5 k/uL (0-0.7); Eosinophils % (A) 3 %; HCT 40.2 % (39.0-53.0); HGB 13.1 gm/dL (13.0-17.5); Lymphocytes # (A) 3.3 k/uL (1.0-4.8); Lymphocytes % (A) 22 %; MCH 26.3 pg (25.0-35.0); MCHC 32.6 g/dL (31.0-37.0); MCV 80.8 fL (80.0-100.0); Mean Platelet Volume 6.6; Monocytes # (A) 0.7 k/uL (0-1.0); Monocytes % (A) 5 %; Neutrophils # (A) 10.1 k/uL (1.3-7.7); Neutrophils % (A) 68 %; Platelet Count 301 k/uL (150-450); RBC 4.97 m/uL (4.30-5.90); RDW 14.6 % (11.5-15.5)
[2018-03-23 03:14] LABS: ALT 24 U/L (21-72); AST 57 U/L (17-59); Albumin 4.1 g/dL (3.5-5.0); Alkaline Phosphatase 84 U/L (38-126); Anion Gap 12 mmol/L; Blood Urea Nitrogen 17 mg/dL (9-20); Calcium 9.7 mg/dL (8.4-10.2); Carbon Dioxide 22 mmol/L (22-30); Chloride 105 mmol/L (98-107); Glucose 86 mg/dL (74-99); Potassium 5.8 mmol/L (3.5-5.1); Sodium 139 mmol/L (137-145); Total Bilirubin 1.2 mg/dL (0.2-1.3); Total Protein 7.1 g/dL (6.3-8.2)
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
[2018-03-23 04:21] VITALS: BP 119/60; PULSE 72; RESP 16; TEMP 97.3
== END 2018-03-23 04:44 | disposition home or self-care (01) ==
LOC: EC 00:28
DX: F11.23 Opioid dependence with withdrawal (principal); R56.9 Unspecified convulsions; F41.9 Anxiety disorder, unspecified; F32.9 Major depressive disorder, single episode, unspecified; Z86.14 Personal history of Methicillin resistant Staphylococcus aureus infection; Z79.899 Other long term (current) drug therapy; Z88.0 Allergy status to penicillin; Z88.2 Allergy status to sulfonamides
CPT/HCPCS: 36415; 80053; 85025; 93005; 99284

== ENCOUNTER 2018-06-27 07:19 | Emergency (ER) | payer OTHER ==
[2018-06-27] MEDS ORDERED: SODIUM CHLORIDE 0.9% 1,000 ML IV ONE (07:25)
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
[2018-06-27 09:41] LABS: Basophils % (A) 1 %; Eosinophils # (A) 0.1 k/uL (0-0.7); Eosinophils % (A) 1 %; HCT 45.6 % (39.0-53.0); HGB 14.4 gm/dL (13.0-17.5); Lymphocytes # (A) 1.3 k/uL (1.0-4.8); Lymphocytes % (A) 16 %; MCH 26.4 pg (25.0-35.0); MCHC 31.5 g/dL (31.0-37.0); MCV 83.7 fL (80.0-100.0); Mean Platelet Volume 6.9; Monocytes # (A) 0.5 k/uL (0-1.0); Monocytes % (A) 5 %; Neutrophils # (A) 6.4 k/uL (1.3-7.7); Neutrophils % (A) 75 %; Platelet Count 326 k/uL (150-450); RBC 5.44 m/uL (4.30-5.90); RDW 14.8 % (11.5-15.5); WBC 8.5 k/uL (3.8-10.6)
[2018-06-27 09:55] LABS: ALT 47 U/L (21-72); AST 101 U/L (17-59); Albumin 4.9 g/dL (3.5-5.0); Alcohol <10 mg/dL; Alkaline Phosphatase 122 U/L (38-126); Anion Gap 14 mmol/L; Blood Urea Nitrogen 19 mg/dL (9-20); Calcium 9.9 mg/dL (8.4-10.2); Carbon Dioxide 22 mmol/L (22-30); Chloride 101 mmol/L (98-107); Glucose 80 mg/dL (74-99); Potassium 4.7 mmol/L (3.5-5.1); Sodium 137 mmol/L (137-145); Total Bilirubin 1.4 mg/dL (0.2-1.3); Total Protein 8.3 g/dL (6.3-8.2)
[2018-06-27 10:21] LABS: Appearance,Urine Clear (Clear); Bilirubin,Urine 1+ (Negative); Blood,Urine Negative (Negative); Color,Urine Yellow; Glucose,Urine (UA) Negative (Negative); Ketones,Urine 3+ (Negative); Leukocyte Esterase,Urine Negative (Negative); Mucus,Urine Few /hpf; Nitrite,Urine Negative (Negative); PH, Urine 5.5 (5.0-8.0); Protein,Urine 1+ (Negative); Specific Gravity,Urine 1.028 (1.001-1.035); WBC,Urine 1 /hpf (0-5)
[2018-06-27 10:25] LABS: Amphetamine Screen,Urine Detected (NotDetected); Barbiturate Screen,Urine Not Detected (NotDetected); Benzodiazepines Screen,Urine Not Detected (NotDetected); Cocaine Screen,Urine Detected (NotDetected); Methadone Screen, Urine Not Detected (NotDetected); Opiate Screen,Urine Not Detected (NotDetected); Oxycodone Screen, Urine Not Detected (NotDetected); Phencyclidine Screen,Urine Not Detected (NotDetected); Tricyclic Antidepressant,Urine Not Detected (NotDetected); Urn Cannabinoid Scrn Detected (NotDetected)
[2018-06-27 10:35] VITALS: BP 134/70; PULSE 89; RESP 18; TEMP 98.1
== END 2018-06-27 10:35 | disposition home or self-care (01) ==
LOC: EC 07:19
DX: F19.10 Other psychoactive substance abuse, uncomplicated (principal); F11.20 Opioid dependence, uncomplicated; F32.9 Major depressive disorder, single episode, unspecified; F41.9 Anxiety disorder, unspecified; F17.200 Nicotine dependence, unspecified, uncomplicated; Z79.899 Other long term (current) drug therapy; Z88.0 Allergy status to penicillin; Z88.2 Allergy status to sulfonamides; Z86.14 Personal history of Methicillin resistant Staphylococcus aureus infection; Z81.3 Family history of other psychoactive substance abuse and dependence; Z53.8 Procedure and treatment not carried out for other reasons
CPT/HCPCS: 36415; 80053; 80306; 80320; 81001; 85025; 99283

== ENCOUNTER 2018-07-01 18:15 | Emergency (ER) | payer OTHER ==
[2018-07-01 18:45] VITALS: RESP 20
--- NOTE | 2018-07-01 19:42 | XR ---
EXAMINATION TYPE: XR hand complete LT DATE OF EXAM: 07/01/2018 COMPARISON: NONE HISTORY: Thumb laceration TECHNIQUE: 3 views FINDINGS: I see no fracture nor dislocation. Joint spaces are normal. There is no sign of a foreign b sita. Thumb appears intact. IMPRESSION: Negative exam. No fracture seen.
[2018-07-01] MEDS ORDERED: LIDOCAINE 1% INJ 10MG/ML (20 ML MDV) SQ ONE (19:43)
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
[2018-07-01 20:49] VITALS: BP 127/75; PULSE 87; TEMP 97.7
== END 2018-07-01 20:49 | disposition home or self-care (01) ==
LOC: EC 18:15
DX: S61.012A Laceration without foreign body of left thumb without damage to nail, initial encounter (principal); F41.9 Anxiety disorder, unspecified; F32.9 Major depressive disorder, single episode, unspecified; F17.200 Nicotine dependence, unspecified, uncomplicated; Z86.14 Personal history of Methicillin resistant Staphylococcus aureus infection; Z98.890 Other specified postprocedural states; Z79.899 Other long term (current) drug therapy; Z88.0 Allergy status to penicillin; Z88.1 Allergy status to other antibiotic agents; Z88.2 Allergy status to sulfonamides; W26.0XXA Contact with knife, initial encounter; Y93.89 Activity, other specified
CPT/HCPCS: 73130; 99283; 12001; J2001

== ENCOUNTER 2018-07-09 04:36 | Emergency (ER) | payer OTHER ==
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
[2018-07-09 07:00] LABS: Anion Gap 10 mmol/L; Blood Urea Nitrogen 18 mg/dL (9-20); Calcium 9.2 mg/dL (8.4-10.2); Carbon Dioxide 23 mmol/L (22-30); Chloride 108 mmol/L (98-107); Glucose 84 mg/dL (74-99); Sodium 141 mmol/L (137-145)
[2018-07-09 07:07] LABS: Basophils # (A) 0.1 k/uL (0-0.2); Basophils % (A) 1 %; Eosinophils # (A) 0.4 k/uL (0-0.7); Eosinophils % (A) 3 %; HCT 43.8 % (39.0-53.0); HGB 13.7 gm/dL (13.0-17.5); Lymphocytes # (A) 3.2 k/uL (1.0-4.8); Lymphocytes % (A) 25 %; MCH 26.4 pg (25.0-35.0); MCHC 31.3 g/dL (31.0-37.0); MCV 84.3 fL (80.0-100.0); Mean Platelet Volume 7.9; Monocytes # (A) 0.7 k/uL (0-1.0); Monocytes % (A) 6 %; Neutrophils # (A) 8.3 k/uL (1.3-7.7); Neutrophils % (A) 64 %; Platelet Count 279 k/uL (150-450); RDW 14.4 % (11.5-15.5); WBC 12.9 k/uL (3.8-10.6)
[2018-07-09 07:49] VITALS: BP 113/65; PULSE 68; RESP 16; TEMP 98.1
== END 2018-07-09 07:45 | disposition home or self-care (01) ==
LOC: EC 04:36
DX: G40.909 Epilepsy, unspecified, not intractable, without status epilepticus (principal); F32.9 Major depressive disorder, single episode, unspecified; F41.9 Anxiety disorder, unspecified; F17.200 Nicotine dependence, unspecified, uncomplicated; Z86.14 Personal history of Methicillin resistant Staphylococcus aureus infection; Z86.19 Personal history of other infectious and parasitic diseases; Z79.899 Other long term (current) drug therapy; Z88.2 Allergy status to sulfonamides; Z88.0 Allergy status to penicillin
CPT/HCPCS: 36415; 80048; 85025; 99284

== ENCOUNTER 2018-08-06 08:12 | Emergency (ER) | payer OTHER ==
[2018-08-06 08:18] VITALS: BP 120/78; PULSE 89; RESP 16; TEMP 97.8
[2018-08-06] MEDS ORDERED: LIDOCAINE 1% INJ 10MG/ML (20 ML MDV) SQ ONE (08:24)
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
== END 2018-08-06 08:50 | disposition home or self-care (01) ==
LOC: EC 08:12
DX: L02.512 Cutaneous abscess of left hand (principal); F32.9 Major depressive disorder, single episode, unspecified; F41.9 Anxiety disorder, unspecified; F11.20 Opioid dependence, uncomplicated; F17.200 Nicotine dependence, unspecified, uncomplicated; Z88.0 Allergy status to penicillin; Z88.2 Allergy status to sulfonamides; Z79.899 Other long term (current) drug therapy; Z86.14 Personal history of Methicillin resistant Staphylococcus aureus infection; Z77.098 Contact with and (suspected) exposure to other hazardous, chiefly nonmedicinal, chemicals; Y93.89 Activity, other specified
CPT/HCPCS: 87070; 87205; 99283; 10160; J2001

== ENCOUNTER 2018-08-16 02:10 | Emergency (ER) | payer OTHER ==
[2018-08-16 02:31] VITALS: BP 132/77; PULSE 101; RESP 20; TEMP 97.9
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
== END 2018-08-16 04:25 | disposition home or self-care (01) ==
LOC: EC 02:10
DX: L29.9 Pruritus, unspecified (principal); F17.200 Nicotine dependence, unspecified, uncomplicated; Z86.14 Personal history of Methicillin resistant Staphylococcus aureus infection; Z88.0 Allergy status to penicillin; Z88.2 Allergy status to sulfonamides
CPT/HCPCS: 99282

== ENCOUNTER 2018-09-05 01:25 | Emergency (ER) | payer OTHER ==
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
[2018-09-05 02:04] VITALS: BP 152/98; PULSE 88; RESP 20; TEMP 97.7
== END 2018-09-05 02:04 | disposition home or self-care (01) ==
LOC: EC 01:25
DX: R21 Rash and other nonspecific skin eruption (principal); F17.200 Nicotine dependence, unspecified, uncomplicated; Z79.82 Long term (current) use of aspirin; Z88.0 Allergy status to penicillin; Z88.2 Allergy status to sulfonamides
CPT/HCPCS: 99282

== ENCOUNTER 2018-09-09 09:24 | Emergency (ER) | payer OTHER ==
[2018-09-09] MEDS ORDERED: hydrOXYzine HCL 25 MG TAB PO STA (10:35)
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
[2018-09-09 11:00] VITALS: BP 124/75; PULSE 99; RESP 20; TEMP 98
== END 2018-09-09 11:00 | disposition home or self-care (01) ==
LOC: EC 09:24
DX: B86 Scabies (principal); F17.200 Nicotine dependence, unspecified, uncomplicated; Z88.2 Allergy status to sulfonamides; Z88.0 Allergy status to penicillin
CPT/HCPCS: 99283

== ENCOUNTER 2018-09-13 20:09 | Emergency (ER) | payer OTHER ==
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
[2018-09-13 23:12] VITALS: BP 148/40; PULSE 81; RESP 19; TEMP 97.8
== END 2018-09-13 23:02 | disposition home or self-care (01) ==
LOC: EC 20:09
DX: S80.862A Insect bite (nonvenomous), left lower leg, initial encounter (principal); S80.861A Insect bite (nonvenomous), right lower leg, initial encounter; B35.3 Tinea pedis; F17.200 Nicotine dependence, unspecified, uncomplicated; Z86.19 Personal history of other infectious and parasitic diseases; Z86.14 Personal history of Methicillin resistant Staphylococcus aureus infection; Z88.1 Allergy status to other antibiotic agents; Z88.2 Allergy status to sulfonamides; W57.XXXA Bitten or stung by nonvenomous insect and other nonvenomous arthropods, initial encounter
CPT/HCPCS: 99283

== ENCOUNTER 2019-01-08 06:08 | Emergency (ER) | payer OTHER ==
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
[2019-01-08 07:53] LABS: Appearance,Urine Clear (Clear); Bilirubin,Urine Negative (Negative); Blood,Urine Negative (Negative); Color,Urine Yellow; Glucose,Urine (UA) Negative (Negative); Ketones,Urine Negative (Negative); Leukocyte Esterase,Urine Negative (Negative); Nitrite,Urine Negative (Negative); PH, Urine 5.5 (5.0-8.0); Protein,Urine Negative (Negative); Specific Gravity,Urine 1.007 (1.001-1.035); Urobilinogen,Urine <2.0 mg/dL (<2.0)
[2019-01-08 08:18] LABS: Amphetamine Screen,Urine Detected (NotDetected); Barbiturate Screen,Urine Not Detected (NotDetected); Benzodiazepines Screen,Urine Detected (NotDetected); Cocaine Screen,Urine Not Detected (NotDetected); Methadone Screen, Urine Not Detected (NotDetected); Opiate Screen,Urine Not Detected (NotDetected); Oxycodone Screen, Urine Not Detected (NotDetected); Phencyclidine Screen,Urine Not Detected (NotDetected); Tricyclic Antidepressant,Urine Not Detected (NotDetected); Urn Cannabinoid Scrn Detected (NotDetected)
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
[2019-01-08 10:07] LABS: Basophils # (A) 0.1 k/uL (0-0.2); Basophils % (A) 1 %; Eosinophils # (A) 0.2 k/uL (0-0.7); Eosinophils % (A) 3 %; HCT 43.3 % (39.0-53.0); HGB 13.4 gm/dL (13.0-17.5); Hypochromasia Slight; Lymphocytes # (A) 2.3 k/uL (1.0-4.8); Lymphocytes % (A) 27 %; MCH 26.2 pg (25.0-35.0); MCHC 30.8 g/dL (31.0-37.0); MCV 84.9 fL (80.0-100.0); Mean Platelet Volume 7.4; Monocytes # (A) 0.5 k/uL (0-1.0); Monocytes % (A) 6 %; Neutrophils # (A) 5.3 k/uL (1.3-7.7); Neutrophils % (A) 61 %; Platelet Count 238 k/uL (150-450); RDW 13.6 % (11.5-15.5); WBC 8.8 k/uL (3.8-10.6)
[2019-01-08 10:18] LABS: ALT 21 U/L (21-72); AST 19 U/L (17-59); Albumin 4.3 g/dL (3.5-5.0); Alcohol <10 mg/dL; Alkaline Phosphatase 85 U/L (38-126); Amylase 37 U/L (30-110); Anion Gap 9 mmol/L; Blood Urea Nitrogen 17 mg/dL (9-20); Calcium 9.6 mg/dL (8.4-10.2); Carbon Dioxide 24 mmol/L (22-30); Chloride 106 mmol/L (98-107); Glucose 75 mg/dL (74-99); Lipase 59 U/L (23-300); Potassium 3.9 mmol/L (3.5-5.1); Sodium 139 mmol/L (137-145); Total Protein 7.4 g/dL (6.3-8.2)
[2019-01-08 10:33] LABS: Creatine Kinase MB 2.2 ng/mL (0.0-2.4)
[2019-01-08 13:35] VITALS: BP 123/87; PULSE 60; RESP 22; TEMP 97.7
== END 2019-01-08 12:50 | disposition home or self-care (01) ==
LOC: EC 06:08
DX: F19.20 Other psychoactive substance dependence, uncomplicated (principal); M54.2 Cervicalgia; F41.9 Anxiety disorder, unspecified; F11.20 Opioid dependence, uncomplicated; F17.200 Nicotine dependence, unspecified, uncomplicated; Z86.14 Personal history of Methicillin resistant Staphylococcus aureus infection; Z79.899 Other long term (current) drug therapy; Z88.0 Allergy status to penicillin; Z88.2 Allergy status to sulfonamides; W50.0XXA Accidental hit or strike by another person, initial encounter
CPT/HCPCS: 36415; 83930; 80053; 82140; 82150; 82550; 82553; 83690; 85025; 81003; 80306; 71046; 99283; G0480; 80320

== ENCOUNTER 2019-01-12 15:33 | Emergency (ER) | payer OTHER ==
[2019-01-12 15:50] VITALS: BP 126/76; PULSE 88; RESP 16; TEMP 99.4
[2019-01-12] MEDS ORDERED: SODIUM CHLORIDE 0.9% 1,000 ML IV STA (15:56)
[2019-01-12 16:42] LABS: ALT <6 U/L (21-72); AST 44 U/L (17-59); Albumin 4.5 g/dL (3.5-5.0); Alkaline Phosphatase 109 U/L (38-126); Anion Gap 11 mmol/L; Blood Urea Nitrogen 10 mg/dL (9-20); Calcium 9.4 mg/dL (8.4-10.2); Carbon Dioxide 21 mmol/L (22-30); Chloride 104 mmol/L (98-107); Glucose 85 mg/dL (74-99); Potassium 5.9 mmol/L (3.5-5.1); Sodium 136 mmol/L (137-145); Total Bilirubin 1.1 mg/dL (0.2-1.3); Total Protein 8.2 g/dL (6.3-8.2)
--- NOTE | 2019-01-12 17:07 | XR ---
EXAMINATION TYPE: XR tibia fibula LT DATE OF EXAM: 01/12/2019 COMPARISON: NONE HISTORY: Abscess of the distal tibia TECHNIQUE: 2 views FINDINGS: I see no fracture nor dislocation. There is no sign of a foreign body. Joint spaces are tommie rly normal. There is no evidence of a soft tissue mass. IMPRESSION: Negative left tibia and fibula exam.
[2019-01-12] MEDS ORDERED: cefTRIAXone 1,000 MG VIAL (IM USE) IM STA (17:17)
[2019-01-12 17:35] LABS: Basophils # (A) 0.1 k/uL (0-0.2); Basophils % (A) 0 %; Eosinophils # (A) 0.4 k/uL (0-0.7); Eosinophils % (A) 2 %; HCT 44.4 % (39.0-53.0); HGB 13.6 gm/dL (13.0-17.5); Lymphocytes # (A) 2.1 k/uL (1.0-4.8); Lymphocytes % (A) 11 %; MCH 25.3 pg (25.0-35.0); MCHC 30.7 g/dL (31.0-37.0); MCV 82.2 fL (80.0-100.0); Mean Platelet Volume 7.6; Monocytes # (A) 0.6 k/uL (0-1.0); Monocytes % (A) 3 %; Neutrophils # (A) 15.8 k/uL (1.3-7.7); Neutrophils % (A) 82 %; Platelet Count 326 k/uL (150-450); RDW 13.9 % (11.5-15.5); WBC 19.3 k/uL (3.8-10.6)
[2019-01-12] MEDS ORDERED: LIDOCAINE 1% INJ 10MG/ML (20 ML MDV) SQ STA (18:04)
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
== END 2019-01-12 18:59 | disposition left against medical advice (07) ==
LOC: EC 15:33
DX: L03.115 Cellulitis of right lower limb (principal); E87.5 Hyperkalemia; F17.200 Nicotine dependence, unspecified, uncomplicated; Z86.14 Personal history of Methicillin resistant Staphylococcus aureus infection; Z87.81 Personal history of (healed) traumatic fracture; Z98.890 Other specified postprocedural states; Z79.899 Other long term (current) drug therapy; Z88.1 Allergy status to other antibiotic agents; Z88.2 Allergy status to sulfonamides
CPT/HCPCS: 36415; 80053; 83605; 85025; 87040; 73590; 99284; 96372; J2001; J0696

== ENCOUNTER 2019-01-17 21:37 | Emergency (ER) | payer OTHER ==
[2019-01-17] MEDS ORDERED: CLINDAMYCIN 150 MG CAP PO STA (22:40)
[2019-01-17] MEDS ORDERED: LIDOCAINE 1% INJ 10MG/ML (20 ML MDV) SQ ONE (22:40)
[2019-01-17] MEDS ORDERED: IBUPROFEN 600 MG STARTER PACK 4 TAB BTL PO STA (22:42)
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
[2019-01-18 00:03] VITALS: BP 126/86; PULSE 66; RESP 16; TEMP 98
== END 2019-01-18 00:02 | disposition home or self-care (01) ==
LOC: EC 21:37
DX: L02.415 Cutaneous abscess of right lower limb (principal); F17.200 Nicotine dependence, unspecified, uncomplicated; Z88.1 Allergy status to other antibiotic agents; Z88.2 Allergy status to sulfonamides
CPT/HCPCS: 87070; 87205; 99283; 10060; J2001

== ENCOUNTER 2019-02-05 00:15 | Emergency (ER) | payer OTHER ==
[2019-02-05 00:34] VITALS: BP 109/72; PULSE 72; RESP 20; TEMP 97.4
[2019-02-05] MEDS ORDERED: IBUPROFEN 600 MG STARTER PACK 4 TAB BTL PO STA (01:00)
[2019-02-05] MEDS ORDERED: ACETAMINOPHEN TAB 500 MG TAB PO STA (01:00)
--- NOTE | 2019-02-05 01:22 | XR ---
EXAM: XR Right Foot Complete, 3 or More Views CLINICAL HISTORY: ITS.REASON XR Reason: Pain TECHNIQUE: Frontal, lateral and oblique views of the right foot. COMPARISON: No relevant prior studies available. FINDINGS: Bones/joints: No acute fracture. No dislocation. Soft tissues: Soft tissue swelling. IMPRESSION: No acute fracture.
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
== END 2019-02-05 02:00 | disposition home or self-care (01) ==
LOC: EC 00:15
DX: S90.31XA Contusion of right foot, initial encounter (principal); F17.200 Nicotine dependence, unspecified, uncomplicated; Z86.14 Personal history of Methicillin resistant Staphylococcus aureus infection; Z88.2 Allergy status to sulfonamides; W22.8XXA Striking against or struck by other objects, initial encounter; Y93.01 Activity, walking, marching and hiking
CPT/HCPCS: 99283

== ENCOUNTER 2019-04-30 00:19 | Emergency (ER) | payer OTHER ==
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
[2019-04-30 06:28] VITALS: BP 123/71; PULSE 68; RESP 18; TEMP 96.9
== END 2019-04-30 06:29 | disposition home or self-care (01) ==
LOC: EC 00:19
DX: T40.1X1A Poisoning by heroin, accidental (unintentional), initial encounter (principal); R41.82 Altered mental status, unspecified; R23.8 Other skin changes; F17.200 Nicotine dependence, unspecified, uncomplicated; Z88.2 Allergy status to sulfonamides; Z86.14 Personal history of Methicillin resistant Staphylococcus aureus infection; Z81.3 Family history of other psychoactive substance abuse and dependence
CPT/HCPCS: 99284

== ENCOUNTER 2019-06-10 17:35 | Emergency (ER) | payer OTHER ==
[2019-06-10] MEDS ORDERED: SODIUM CHLORIDE 0.9% 1,000 ML IV STA (17:51)
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
[2019-06-10 17:58] VITALS: BP 133/94; PULSE 75; RESP 16; TEMP 98.2
[2019-06-10 18:25] LABS: Basophils # (A) 0.1 k/uL (0-0.2); Basophils % (A) 1 %; Eosinophils # (A) 0.3 k/uL (0-0.7); Eosinophils % (A) 2 %; HCT 46.1 % (39.0-53.0); Lymphocytes # (A) 2.8 k/uL (1.0-4.8); Lymphocytes % (A) 26 %; MCH 27.4 pg (25.0-35.0); MCHC 32.6 g/dL (31.0-37.0); MCV 84.2 fL (80.0-100.0); Mean Platelet Volume 6.7; Monocytes # (A) 0.4 k/uL (0-1.0); Monocytes % (A) 3 %; Neutrophils # (A) 7.1 k/uL (1.3-7.7); Neutrophils % (A) 66 %; Platelet Count 376 k/uL (150-450); RBC 5.47 m/uL (4.30-5.90); RDW 14.6 % (11.5-15.5); WBC 10.7 k/uL (3.8-10.6)
[2019-06-10 18:33] LABS: ALT 21 U/L (21-72); AST 26 U/L (17-59); African American GFR (CKD) >90 (>60 ml/min/1.73 sqM); Albumin 4.2 g/dL (3.5-5.0); Alkaline Phosphatase 99 U/L (38-126); Anion Gap 10 mmol/L; Blood Urea Nitrogen 15 mg/dL (9-20); Calcium 9.6 mg/dL (8.4-10.2); Carbon Dioxide 25 mmol/L (22-30); Chloride 102 mmol/L (98-107); Glucose 85 mg/dL (74-99); Magnesium 2.2 mg/dL (1.6-2.3); Non-African American GFR(CKD) >90 (>60 ml/min/1.73 sqM); Potassium 5.1 mmol/L (3.5-5.1); Sodium 137 mmol/L (137-145); Total Bilirubin 0.2 mg/dL (0.2-1.3); Total Protein 7.4 g/dL (6.3-8.2)
[2019-06-10 18:38] LABS: INR 0.9 (<1.2); Partial Thromboplastin Time 24.1 sec (22.0-30.0); Prothrombin Time 9.5 sec (9.0-12.0)
--- NOTE | 2019-06-10 18:49 | XR ---
EXAMINATION TYPE: XR chest 2V DATE OF EXAM: 06/10/2019 COMPARISON: 01/08/2019 HISTORY: Chest pain TECHNIQUE: Frontal and lateral views of the chest are obtained. FINDINGS: Heart and mediastinum are normal. Lungs are clear. Diaphragm is normal. Bony thorax appear s normal. IMPRESSION: Normal chest. No change.
== END 2019-06-10 19:22 | disposition home or self-care (01) ==
LOC: EC 17:35
DX: R00.2 Palpitations (principal); R07.1 Chest pain on breathing; F17.200 Nicotine dependence, unspecified, uncomplicated; Z86.14 Personal history of Methicillin resistant Staphylococcus aureus infection; Z88.2 Allergy status to sulfonamides
CPT/HCPCS: 36415; 71046; 80053; 83735; 84484; 85025; 85610; 85730; 93005; 96360; 99284

== ENCOUNTER 2019-06-17 18:52 | Emergency (ER) | payer OTHER ==
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
[2019-06-17 20:37] LABS: Appearance,Urine Clear (Clear); Bilirubin,Urine Negative (Negative); Blood,Urine Negative (Negative); Color,Urine Yellow; Glucose,Urine (UA) Negative (Negative); Ketones,Urine Negative (Negative); Leukocyte Esterase,Urine Negative (Negative); Nitrite,Urine Negative (Negative); Protein,Urine Trace (Negative)
[2019-06-17 20:47] VITALS: BP 132/85; PULSE 86; RESP 18; TEMP 98
[2019-06-17 20:48] LABS: Amphetamine Screen,Urine Detected (NotDetected); Barbiturate Screen,Urine Not Detected (NotDetected); Benzodiazepines Screen,Urine Not Detected (NotDetected); Cocaine Screen,Urine Not Detected (NotDetected); Methadone Screen, Urine Not Detected (NotDetected); Opiate Screen,Urine Not Detected (NotDetected); Oxycodone Screen, Urine Not Detected (NotDetected); Phencyclidine Screen,Urine Not Detected (NotDetected); Tricyclic Antidepressant,Urine Not Detected (NotDetected); Urn Cannabinoid Scrn Detected (NotDetected)
== END 2019-06-17 21:22 | disposition home or self-care (01) ==
LOC: EC 18:52
DX: F41.9 Anxiety disorder, unspecified (principal); F15.10 Other stimulant abuse, uncomplicated; F17.200 Nicotine dependence, unspecified, uncomplicated; Z86.14 Personal history of Methicillin resistant Staphylococcus aureus infection; Z88.2 Allergy status to sulfonamides
CPT/HCPCS: 80306; 81003; 82075; 99285

== ENCOUNTER 2019-11-22 11:19 | Emergency (ER) | payer OTHER ==
[2019-11-22 11:24] VITALS: RESP 18
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
[2019-11-22] MEDS ORDERED: AMPICILLIN-SULBACTAM 3 GM in SODIUM CHLORIDE 0.9% 100 ML IVPB STA (12:35)
[2019-11-22 12:49] VITALS: BP 136/84; PULSE 74; TEMP 97.5
[2019-11-22 13:13] LABS: Basophils % (A) 0 %; Eosinophils # (A) 0.3 k/uL (0-0.7); Eosinophils % (A) 3 %; HCT 35.4 % (39.0-53.0); HGB 12.2 gm/dL (13.0-17.5); Lymphocytes # (A) 1.2 k/uL (1.0-4.8); Lymphocytes % (A) 16 %; MCH 30.1 pg (25.0-35.0); MCHC 34.4 g/dL (31.0-37.0); MCV 87.6 fL (80.0-100.0); Mean Platelet Volume 8.2; Monocytes # (A) 0.4 k/uL (0-1.0); Monocytes % (A) 5 %; Neutrophils # (A) 5.7 k/uL (1.3-7.7); Neutrophils % (A) 74 %; Platelet Count 233 k/uL (150-450); RBC 4.05 m/uL (4.30-5.90); RDW 13.3 % (11.5-15.5); WBC 7.7 k/uL (3.8-10.6)
[2019-11-22 13:26] LABS: ALT 17 U/L (4-49); AST 45 U/L (17-59); African American GFR (CKD) >90 (>60 ml/min/1.73 sqM); Albumin 3.9 g/dL (3.5-5.0); Alkaline Phosphatase 55 U/L (38-126); Anion Gap 8 mmol/L; Blood Urea Nitrogen 21 mg/dL (9-20); Calcium 8.9 mg/dL (8.4-10.2); Carbon Dioxide 28 mmol/L (22-30); Chloride 102 mmol/L (98-107); Glucose 99 mg/dL (74-99); Non-African American GFR(CKD) >90 (>60 ml/min/1.73 sqM); Potassium 3.4 mmol/L (3.5-5.1); Sodium 138 mmol/L (137-145); Total Bilirubin 0.7 mg/dL (0.2-1.3); Total Protein 6.7 g/dL (6.3-8.2)
[2019-11-22 13:29] LABS: INR 0.9 (<1.2); Partial Thromboplastin Time 22.2 sec (22.0-30.0); Prothrombin Time 9.7 sec (9.0-12.0)
== END 2019-11-22 14:10 | disposition other institution (70) ==
LOC: EC 11:19
DX: S52.572A Other intraarticular fracture of lower end of left radius, initial encounter for closed fracture (principal); S02.121A Fracture of orbital roof, right side, initial encounter for closed fracture; S02.40CA Maxillary fracture, right side, initial encounter for closed fracture; S02.40EA Zygomatic fracture, right side, initial encounter for closed fracture; F17.200 Nicotine dependence, unspecified, uncomplicated; V43.52XA Car driver injured in collision with other type car in traffic accident, initial encounter; Y92.410 Unspecified street and highway as the place of occurrence of the external cause
CPT/HCPCS: 36415; 80053; 85025; 85610; 85730; 73090; 73110; 70486; 70450; 99285; 29125; 96365; J0295

== ENCOUNTER 2019-12-01 11:31 | Emergency (ER) | payer OTHER ==
[2019-12-01 11:37] VITALS: BP 127/84; PULSE 100; RESP 20; TEMP 97.7
[2019-12-01] MEDS ORDERED: IBUPROFEN 800 MG TAB PO STA (11:49)
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
== END 2019-12-01 12:04 | disposition home or self-care (01) ==
LOC: EC 11:31
DX: Z47.89 Encounter for other orthopedic aftercare (principal); S52.502D Unspecified fracture of the lower end of left radius, subsequent encounter for closed fracture with routine healing; F17.200 Nicotine dependence, unspecified, uncomplicated; Z88.1 Allergy status to other antibiotic agents; Z88.2 Allergy status to sulfonamides; X58.XXXD Exposure to other specified factors, subsequent encounter
CPT/HCPCS: 29125; 99283

== ENCOUNTER 2020-02-18 15:54 | Emergency (ER) | payer OTHER ==
[2020-02-18 16:03] VITALS: TEMP 97
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
[2020-02-18 20:44] LABS: Appearance,Urine Clear (Clear); Bilirubin,Urine Negative (Negative); Blood,Urine Negative (Negative); Color,Urine Yellow; Glucose,Urine (UA) Negative (Negative); Ketones,Urine 2+ (Negative); Leukocyte Esterase,Urine Negative (Negative); Nitrite,Urine Negative (Negative); Protein,Urine Trace (Negative); Specific Gravity,Urine 1.033 (1.001-1.035)
[2020-02-18 20:53] LABS: Amphetamine Screen,Urine Detected (NotDetected); Barbiturate Screen,Urine Not Detected (NotDetected); Benzodiazepines Screen,Urine Not Detected (NotDetected); Cocaine Screen,Urine Not Detected (NotDetected); Methadone Screen, Urine Not Detected (NotDetected); Opiate Screen,Urine Not Detected (NotDetected); Oxycodone Screen, Urine Not Detected (NotDetected); Phencyclidine Screen,Urine Not Detected (NotDetected); Tricyclic Antidepressant,Urine Not Detected (NotDetected); Urn Cannabinoid Scrn Detected (NotDetected)
[2020-02-18 22:37] VITALS: BP 120/73; PULSE 66; RESP 18
== END 2020-02-18 22:34 | disposition home or self-care (01) ==
LOC: EC 15:54
DX: F15.10 Other stimulant abuse, uncomplicated (principal); F17.200 Nicotine dependence, unspecified, uncomplicated; Z88.1 Allergy status to other antibiotic agents; Z88.2 Allergy status to sulfonamides
CPT/HCPCS: 80306; 81003; 99284

== ENCOUNTER 2022-10-22 11:14 | Emergency (ER) | payer OTHER ==
[2022-10-22 11:29] VITALS: TEMP 97.5
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
[2022-10-22 12:30] VITALS: BP 145/76; PULSE 77; RESP 18
== END 2022-10-22 12:35 | disposition home or self-care (01) ==
LOC: EC 11:14
DX: S02.5XXA Fracture of tooth (traumatic), initial encounter for closed fracture (principal); F41.9 Anxiety disorder, unspecified; F32.A Depression, unspecified; G40.909 Epilepsy, unspecified, not intractable, without status epilepticus; F17.200 Nicotine dependence, unspecified, uncomplicated; F12.90 Cannabis use, unspecified, uncomplicated; F14.90 Cocaine use, unspecified, uncomplicated; F15.10 Other stimulant abuse, uncomplicated
CPT/HCPCS: 99282

== ENCOUNTER 2023-03-31 13:19 | Emergency (ER) | payer OTHER ==
[2023-03-31 13:58] VITALS: BP 145/81; PULSE 84; RESP 18; TEMP 98.2
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
== END 2023-03-31 15:30 | disposition home or self-care (01) ==
LOC: EC 13:19
DX: B80 Enterobiasis (principal); F17.200 Nicotine dependence, unspecified, uncomplicated; F12.90 Cannabis use, unspecified, uncomplicated; Z86.59 Personal history of other mental and behavioral disorders; Z88.2 Allergy status to sulfonamides; Z88.8 Allergy status to other drugs, medicaments and biological substances
CPT/HCPCS: 99283

== ENCOUNTER 2023-07-11 14:35 | Emergency (ER) | payer OTHER ==
[2023-07-11 14:55] VITALS: BP 158/91; PULSE 90; RESP 20; TEMP 98
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
[2023-07-11] MEDS ORDERED: LORazepam 2 MG/ML INJ IV STA (16:23)
[2023-07-11 16:29] LABS: Basophils % (A) 0 %; Eosinophils # (A) 0.3 k/uL (0-0.7); Eosinophils % (A) 2 %; HCT 44.8 % (39.0-53.0); Lymphocytes # (A) 1.8 k/uL (1.0-4.8); Lymphocytes % (A) 14 %; MCH 29.1 pg (25.0-35.0); MCHC 33.4 g/dL (31.0-37.0); MCV 87.1 fL (80.0-100.0); Mean Platelet Volume 8.8; Monocytes # (A) 0.6 k/uL (0-1.0); Monocytes % (A) 5 %; Neutrophils # (A) 9.7 k/uL (1.3-7.7); Neutrophils % (A) 77 %; Platelet Count 307 k/uL (150-450); RBC 5.15 m/uL (4.30-5.90); RDW 13.1 % (11.5-15.5); WBC 12.7 k/uL (3.8-10.6)
[2023-07-11 16:59] LABS: African American GFR (CKD) >90 (>60 ml/min/1.73 sqM); Anion Gap 15 mmol/L; Blood Urea Nitrogen 28 mg/dL (9-20); Calcium 10.9 mg/dL (8.4-10.2); Carbon Dioxide 23 mmol/L (22-30); Chloride 103 mmol/L (98-107); Creatine Kinase 263 U/L (55-170); Glucose 85 mg/dL (74-99); Magnesium 2.3 mg/dL (1.6-2.3); Non-African American GFR(CKD) >90 (>60 ml/min/1.73 sqM); Potassium 4.4 mmol/L (3.5-5.1); Sodium 141 mmol/L (137-145)
== END 2023-07-11 23:11 | disposition other institution (70) ==
LOC: EC 14:35
DX: G92.9 Unspecified toxic encephalopathy (principal); F17.200 Nicotine dependence, unspecified, uncomplicated; Z88.2 Allergy status to sulfonamides; Z88.8 Allergy status to other drugs, medicaments and biological substances; Z86.59 Personal history of other mental and behavioral disorders
CPT/HCPCS: 36415; 93005; 80048; 82550; 83605; 83735; 85025; 99284; 96372; J3360

== ENCOUNTER 2024-08-25 18:52 | Emergency (ER) | payer OTHER ==
[2024-08-25 19:23] VITALS: TEMP 98
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
[2024-08-26 00:23] VITALS: BP 137/80; PULSE 86; RESP 18
== END 2024-08-26 00:22 | disposition home or self-care (01) ==
LOC: EC 18:52
CPT/HCPCS: 99282

== ENCOUNTER 2024-08-30 11:00 | Emergency (ER) | payer OTHER ==
[2024-08-30 11:24] VITALS: RESP 18
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
[2024-08-30 11:50] VITALS: BP 134/72; PULSE 81; TEMP 98.1
== END 2024-08-30 12:31 | disposition home or self-care (01) ==
LOC: EC 11:00
CPT/HCPCS: 99283

== ENCOUNTER 2024-12-25 12:38 | Emergency (ER) | payer OTHER ==
[2024-12-25 12:49] VITALS: BP 156/82; PULSE 101; RESP 20; TEMP 98
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
[2024-12-25] MEDS: BENZOCAINE 20 % GEL 11.9 GM TUBE MM ONE (13:38)
[2024-12-25] MEDS: AMOXIC-POT CLAV 875-125MG 1 EACH TAB PO STA (13:38)
[2024-12-25] MEDS: ACETAMINOPHEN TAB 325 MG TAB PO STA (13:38)
== END 2024-12-25 13:40 | disposition home or self-care (01) ==
LOC: EC 12:38
DX: K08.89 Other specified disorders of teeth and supporting structures (principal); F17.200 Nicotine dependence, unspecified, uncomplicated; Z88.2 Allergy status to sulfonamides; Z88.1 Allergy status to other antibiotic agents; W01.0XXA Fall on same level from slipping, tripping and stumbling without subsequent striking against object, initial encounter
CPT/HCPCS: 99282

== ENCOUNTER 2025-04-25 12:21 | Emergency (ER) | payer OTHER ==
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
[2025-04-25] MEDS: LORazepam 1 MG/0.5 ML VIAL IM STA (14:58)
[2025-04-25] MEDS: ZIPRASIDONE 20 MG VIAL IM STA (14:58)
[2025-04-25 15:23] LABS: Amphetamine Screen,Urine Detected (NotDetected); Barbiturate Screen,Urine Not Detected (NotDetected); Benzodiazepines Screen,Urine Not Detected (NotDetected); Cocaine Screen,Urine Detected (NotDetected); Methadone Screen, Urine Not Detected (NotDetected); Opiate Screen,Urine Not Detected (NotDetected); Oxycodone Screen, Urine Not Detected (NotDetected); Phencyclidine Screen,Urine Not Detected (NotDetected); Tricyclic Antidepressant,Urine Not Detected (NotDetected); Urn Cannabinoid Scrn Detected (NotDetected)
[2025-04-25 22:41] VITALS: BP 130/88; PULSE 72; RESP 18; TEMP 98.2
== END 2025-04-25 22:48 ==
LOC: EC 12:21
DX: F15.10 Other stimulant abuse, uncomplicated (principal); F17.200 Nicotine dependence, unspecified, uncomplicated; Z88.1 Allergy status to other antibiotic agents; Z88.2 Allergy status to sulfonamides
CPT/HCPCS: 82075; 80306; 99285; 96372; J2060; J3486